=== PATIENT | male | born 1960 | race Caucasian/White ===

== ENCOUNTER 2018-06-11 18:21 | Emergency (ER) | payer OTHER ==
[~2018-06-11] VITALS: Ht 175.3 cm; Wt 77.1 kg
[~2018-06-11 18:21] MED LIST: AMBIEN5 MG ORAL; ASPIRIN81 MG ORAL; ATIVAN0.5 MG ORAL; CELEXA40 MG ORAL; HUMALOG100 UNIT/3 SUBQ; LANTUS SOL100 UNIT/1 SUBQ; LIPITOR80 MG ORAL; METFORMIN HCL500 M1 ORAL; RANITIDINE HCL75 MG PO; STRIBILD TABLE1 EACH PO; TRAMADOL HCL50 MG ORAL; UNOBMED
[2018-06-11 18:56] LABS: BASOPHILS % (AUTO) 1.5 % (0.0-2.0); EOSINOPHILS % (AUTO) 0.7 % (0.0-3.0); HEMATOCRIT 43.6 % (42.0-52.0); HEMOGLOBIN 15.1 G/DL (14.2-18.0); LYMPHOCYTES % (AUTO) 29.1 % (20.0-45.0); MEAN CORPUSCULAR VOLUME 91 FL (80-99); MONOCYTES % (AUTO) 6.9 % (1.0-10.0); NEUTROPHILS % (AUTO) 61.9 % (45.0-75.0); PLATELET COUNT 303 K/UL (150-450); RED BLOOD COUNT 4.79 M/UL (4.70-6.10); RED CELL DISTRIBUTION WIDTH 10.9 % (11.6-14.8); WHITE BLOOD COUNT 11.3 K/UL (4.8-10.8)
[2018-06-11 18:58] VITALS: BP 110/76
[2018-06-11 19:06] LABS: ANION GAP 17 mmol/L (5-15); BLOOD UREA NITROGEN 18 mg/dL (7-18); CALCIUM 9.4 MG/DL (8.5-10.1); CARBON DIOXIDE 20 MMOL/L (21-32); CHLORIDE 97 MMOL/L (98-107); SODIUM 134 MMOL/L (136-145)
[2018-06-11 19:11] LABS: ALANINE AMINOTRANSFERASE 33 U/L (12-78); ALBUMIN 3.8 G/DL (3.4-5.0); ALBUMIN/GLOBULIN RATIO 0.9 (1.0-2.7); ALKALINE PHOSPHATASE 161 U/L (46-116); ASPARTATE AMINO TRANSFERASE 23 U/L (15-37); BILIRUBIN,TOTAL 0.3 MG/DL (0.2-1.0)
--- NOTE | 2018-06-11 19:13 | Diagnostic Imaging Report ---
EXAM: CT Head Without Intravenous Contrast CLINICAL HISTORY: AMS TECHNIQUE: Axial computed tomography images of the head/brain without intravenous contrast. CTDI is 70 mGy and DLP is 1364 mGy-cm. One or more of the following dose reduction techniques were used: automated exposure control, adjustment of the mA and/or kV according to patient size, use of iterative reconstruction technique. COMPARISON: No relevant prior studies available. FINDINGS: Brain: Unremarkable. No hemorrhage. No edema. Ventricles: Unremarkable. No ventriculomegaly. Bones/joints: Unremarkable. No acute fracture. Soft tissues: Unremarkable. Sinuses: Paranasal sinus mucosal thickening. Mastoid air cells: Unremarkable as visualized. IMPRESSION: 1. No acute intracranial abnormality. 2. Paranasal sinus mucosal thickening.
[2018-06-11] MEDS ORDERED: LANTUS SOL100 UNIT/1 SUBQ (21:19)
--- NOTE | 2018-06-11 22:09 | Emergency Room Report ---
History of Present Illness General Chief Complaint: Alcohol Intoxication Source: Patient, EMS Present Illness HPI 57-year-old male presents ED for evaluation. Found by EMS, altered. EtOH. Unclear whether patient fell. Accu-Chek high. History of diabetes. Patient admits to drinking. States he does not have his Lantus for his diabetes. Denies any headache. Denies any chest pain or shortness of breath. No other aggravating relieving factors. Denies any other associated symptoms Allergies: Coded Allergies: No Known Allergies (Unverified , 11/16/14) UNABLE TO ASSESS (Unverified , 08/02/15) PT ALOC Patient History Past Medical History: DM, HTN Past Surgical History: none Pertinent Family History: none Social History: Reports: alcohol use; Denies: smoking, drug use Immunizations: UTD Reviewed Nursing Documentation: PMH: Agreed; PSxH: Agreed Nursing Documentation-PMH Past Medical History: No Stated History Hx Cardiac Problems: Yes Hx Hypertension: Yes Hx Diabetes: Yes Hx Cancer: No Hx Gastrointestinal Problems: No Hx Neurological Problems: No Review of Systems All Other Systems: negative except mentioned in HPI Physical Exam Vital Signs Date Time Temp Pulse Resp B/P (MAP) Pulse Ox O2 Delivery O2 Flow Rate FiO2 06/11/18 18:18 98.4 101 19 126/83 98 Room Air Sp02 EP Interpretation: reviewed, normal General Appearance: GCS 15, non-toxic, other - intoxicated Head: normocephalic, atraumatic Eyes: bilateral eye normal inspection, bilateral eye PERRL ENT: hearing grossly normal, normal pharynx, no angioedema, normal voice Neck: full range of motion, supple/symm/no masses Respiratory: chest non-tender, lungs clear, normal breath sounds, speaking full sentences Cardiovascular #1: regular rate, rhythm, no edema Cardiovascular #2: 2+ carotid (R), 2+ carotid (L), 2+ radial (R), 2+ radial (L) , 2+ dorsalis pedis (R), 2+ dorsalis pedis (L) Gastrointestinal: normal bowel sounds, non tender, soft, non-distended, no guarding, no rebound Rectal: deferred Genitourinary: normal inspection, no CVA tenderness Musculoskeletal: back normal, gait/station normal, normal range of motion, non- tender Neurologic: other - intoxicated Psychiatric: other - intoxicated Reflexes: 3+ bicep (R), 3+ bicep (L), 3+ tricep (R), 3+ tricep (L), 3+ knee (R) , 3+ knee (L) Skin: normal color, no rash, warm/dry, well hydrated Lymphatic: no adenopathy Medical Decision Making Diagnostic Impression: Primary Impression: Acute alcoholic intoxication Qualified Codes: F10.929 - Alcohol use, unspecified with intoxication, unspecified Additional Impression: Hyperglycemia ER Course Hospital Course 57-year-old M presents to ED with altered mental status. +ETOH, accucheck high Differential diagnoses include: Psychosis, EtOH, drug abuse, DKA Clinical course patient placed on stretcher. On quality assurance monitor body. After initial history and physical ordered labs, IV fluids,CT brain. Labs reviewed- glucose > 300, no leukocytosis, hemoglobin/hematocrit stable, ETOH elevated, no signs of DKA CT brain shows no acute pathology Patient allowed to sleep. Given IV fluids. Accu-Chek improved. We will discharge with prescription for Lantus. i. I feel this is a highly complex case requiring extensive working including EKG/Rhythm strip, Xray/CT/US, Blood/urine lab work, repeat exams while in ED, and administration of strong opiates/narcotics for pain control, admission to hospital or close patient follow up. Diagnosis - alcohol intoxication, hyperglycemia Stable and discharged to home with Rx Lantus. Followup with PMD. Return to ED if symptoms recur or worsen Labs Test 06/11/18 18:20 06/11/18 18:45 Urine Opiates Screen Negative (NEGATIVE) Urine Barbiturates Screen Negative (NEGATIVE) Phencyclidine (PCP) Screen Negative (NEGATIVE) Urine Amphetamines Screen Negative (NEGATIVE) Urine Benzodiazepines Screen Negative (NEGATIVE) Urine Cocaine Screen Negative (NEGATIVE) Urine Marijuana (THC) Screen Negative (NEGATIVE) White Blood Count 11.3 K/UL (4.8-10.8) Red Blood Count 4.79 M/UL (4.70-6.10) Hemoglobin 15.1 G/DL (14.2-18.0) Hematocrit 43.6 % (42.0-52.0) Mean Corpuscular Volume 91 FL (80-99) Mean Corpuscular Hemoglobin 31.6 PG (27.0-31.0) Mean Corpuscular Hemoglobin Concent 34.7 G/DL (32.0-36.0) Red Cell Distribution Width 10.9 % (11.6-14.8) Platelet Count 303 K/UL (150-450) Mean Platelet Volume 5.9 FL (6.5-10.1) Neutrophils (%) (Auto) 61.9 % (45.0-75.0) Lymphocytes (%) (Auto) 29.1 % (20.0-45.0) Monocytes (%) (Auto) 6.9 % (1.0-10.0) Eosinophils (%) (Auto) 0.7 % (0.0-3.0) Basophils (%) (Auto) 1.5 % (0.0-2.0) Sodium Level 134 MMOL/L (136-145) Potassium Level 4.0 MMOL/L (3.5-5.1) Chloride Level 97 MMOL/L (98-107) Carbon Dioxide Level 20 MMOL/L (21-32) Anion Gap 17 mmol/L (5-15) Blood Urea Nitrogen 18 mg/dL (7-18) Creatinine 1.0 MG/DL (0.55-1.30) Estimat Glomerular Filtration Rate > 60 mL/min (>60) Glucose Level 423 MG/DL (74-106) Calcium Level 9.4 MG/DL (8.5-10.1) Total Bilirubin 0.3 MG/DL (0.2-1.0) Aspartate Amino Transf (AST/SGOT) 23 U/L (15-37) Alanine Aminotransferase (ALT/SGPT) 33 U/L (12-78) Alkaline Phosphatase 161 U/L (46-116) Total Protein 8.1 G/DL (6.4-8.2) Albumin 3.8 G/DL (3.4-5.0) Globulin 4.3 g/dL Albumin/Globulin Ratio 0.9 (1.0-2.7) Salicylates Level 2.7 ug/mL (2.8-20) Acetaminophen Level < 2 MCG/ML (10-30) Serum Alcohol 392 mg/dL CT/MRI/US Diagnostic Results CT/MRI/US Diagnostic Results : Imaging Test Ordered: CT Head Impression no acute process Last Vital Signs Date Time Temp Pulse Resp B/P (MAP) Pulse Ox O2 Delivery O2 Flow Rate FiO2 06/11/18 18:58 98.4 90 18 110/76 98 Room Air Status: improved Disposition: HOME, SELF-CARE Condition: Stable Scripts Insulin Glargine (LANTUS) 100 Unit/1 Ml Insuln.pen 40 UNITS SUBQ BID for 30 Days, EA 0 Refills Prov: Mp Gregg MD 06/11/18 Referrals: [facility]REFERR[facility] (PCP) Patient Instructions: Alcohol Intoxication Mp Gregg MD Jun 11, 2018 22:09
[2018-06-11 22:23] VITALS: BP 146/72
== END 2018-06-11 22:30 | disposition home or self-care (01) ==
LOC: EDBD 18:21 → EMR 18:54
DX: F10.129 Alcohol abuse with intoxication, unspecified (principal); E11.65 Type 2 diabetes mellitus with hyperglycemia; I10 Essential (primary) hypertension
CPT/HCPCS: 36415; 70450; 80053; 80307; 80329; 82962; 85025; 96360; 96361; 99284

== ENCOUNTER 2018-12-10 19:17 | Emergency (ER) | payer OTHER ==
[~2018-12-10] VITALS: Ht 175.3 cm; Wt 77.1 kg
[2018-12-10 19:18] VITALS: BP 126/81
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
--- NOTE | 2018-12-10 19:34 | NUR ---
ED Nurse Note: Blood collected and sent to Lab.
[2018-12-10] MEDS ORDERED: LORazepam Inj 2mg/ml 1ml IM ONE (19:45)
[2018-12-10] MEDS ORDERED: Haloperidol 5mg/ml Inj IM ONE (19:45)
--- NOTE | 2018-12-10 19:58 | NUR ---
ED Nurse Note: Meds given as ordered.
[2018-12-10 20:22] LABS: ANION GAP 15 mmol/L (5-15); BLOOD UREA NITROGEN 18 mg/dL (7-18); CALCIUM 9.2 MG/DL (8.5-10.1); CARBON DIOXIDE 20 MMOL/L (21-32); CHLORIDE 100 MMOL/L (98-107); CREATININE 0.9 MG/DL (0.55-1.30); POTASSIUM 3.9 MMOL/L (3.5-5.1); SODIUM 135 MMOL/L (136-145)
[2018-12-10 20:27] LABS: ALANINE AMINOTRANSFERASE 28 U/L (12-78); ALBUMIN 3.5 G/DL (3.4-5.0); ALBUMIN/GLOBULIN RATIO 0.8 (1.0-2.7); ALKALINE PHOSPHATASE 122 U/L (46-116); ASPARTATE AMINO TRANSFERASE 16 U/L (15-37); BILIRUBIN,TOTAL 0.4 MG/DL (0.2-1.0)
[2018-12-10 20:30] LABS: BASOPHILS % (AUTO) 1.2 % (0.0-2.0); EOSINOPHILS % (AUTO) 0.4 % (0.0-3.0); HEMATOCRIT 37.8 % (42.0-52.0); LYMPHOCYTES % (AUTO) 16.6 % (20.0-45.0); MEAN CORPUSCULAR VOLUME 85 FL (80-99); NEUTROPHILS % (AUTO) 75.8 % (45.0-75.0); PLATELET COUNT 254 K/UL (150-450); RED BLOOD COUNT 4.43 M/UL (4.70-6.10); RED CELL DISTRIBUTION WIDTH 11.1 % (11.6-14.8); WHITE BLOOD COUNT 14.3 K/UL (4.8-10.8)
--- NOTE | 2018-12-10 21:28 | Emergency Room Report ---
History of Present Illness General Chief Complaint: Alcohol Intoxication Source: Medical Record (Yue Salcedo) Present Illness HPI 58-year-old male presents to the emergency department brought by ambulance for intoxication in public and irritability. Patient reports alcohol intake prior to arrival as well as earlier today. Patient denies pain, chest pain, shortness of breath, weakness, open wounds or bleeding, nausea, vomiting, fevers or chills. HPI and ROS are very limited due to poor patient cooperation as patient does not want to be evaluated in the emergency department. Patient denies trauma or fall. He denies illicit drug use. (Yue Salcedo) Allergies: Coded Allergies: No Known Allergies (Unverified , 11/16/14) UNABLE TO ASSESS (Unverified , 08/02/15) PT ALOC Patient History Past Medical History: see triage record Past Surgical History: none Pertinent Family History: none Reviewed Nursing Documentation: PMH: Agreed; PSxH: Agreed (Yue Salcedo) Nursing Documentation-PMH Hx Cardiac Problems: Yes Hx Hypertension: Yes Hx Asthma: No Hx COPD: No Hx Diabetes: Yes Hx Cancer: No Hx Gastrointestinal Problems: No Hx Dialysis: No Hx Neurological Problems: No Hx Cerebrovascular Accident: No Hx Seizures: No (Yue Salcedo) Review of Systems All Other Systems: limited (Yue Salcedo) Physical Exam Vital Signs Date Time Temp Pulse Resp B/P (MAP) Pulse Ox O2 Delivery O2 Flow Rate FiO2 12/10/18 19:14 98.8 101 18 127/83 (98) 99 Room Air Sp02 EP Interpretation: reviewed, normal General Appearance: no apparent distress, alert, GCS 15, non-toxic Head: normocephalic, atraumatic Eyes: bilateral eye normal inspection, bilateral eye PERRL ENT: hearing grossly normal, normal voice Neck: full range of motion, no bony tend Respiratory: chest non-tender, lungs clear, normal breath sounds, speaking full sentences Cardiovascular #1: regular rate, rhythm Gastrointestinal: normal bowel sounds, non tender, soft Musculoskeletal: back normal, normal range of motion, non-tender Neurologic: alert, oriented x3, responsive, motor strength/tone normal, sensory intact, speech normal, other - staggard /unsteady gait., grossly normal Skin: normal color, no rash, warm/dry, well hydrated, other - erythema, warmth and induration to the dorsum of the right hand and medial aspect of the left elbow. no palpable fluctuance, no blisters or vessicles Lymphatic: no adenopathy (Yue Salcedo) Medical Decision Making PA Attestation Dr. Mccain is my supervising Physician whom patient management has been discussed with. (Yue Salcedo) Diagnostic Impression: Primary Impression: Alcohol abuse Additional Impression: Cellulitis Qualified Codes: L03.90 - Cellulitis, unspecified ER Course Pt. presents to the ED intoxicated with alcohol, pt. is NAD, pt. is alert, no obvious signs of trauma, able to ambulate to but without steady gait. Ddx considered but are not limited to ETOH, Trauma, Syncope, dementia, OD, head injury, cellulitis, abscess, drug abuse just to name a few Vital signs: are WNL, pt. is afebrile H&PE are most consistent with ETOH abuse and two areas with cellulitis ( right hand and medial aspect of the left elbow) ORDERS: -CBC; elevated wbc 14k -CMP: WNL -Serum ETOH: 290 -UDS: positive for benzo's - Tylenol /ASA: WNL ED INTERVENTIONS: -5mg Haldol-- pt. was agitated/ uncooperative and attempting to leave while obviously inebriated -Wound Care -Observance while he detoxifies. -Keflex PO Pt. was allowed to sleep/rest. - Signed out to Dr. Romo to continue observation until clinically sober. DISCHARGE: At this time pt. is stable for d/c to home once he is clinically sober. Will provide printed patient care instructions, and any necessary prescriptions. Care plan and follow up instructions have been discussed with the patient prior to discharge. (Yue Salcedo) ER Course Patient rested throughout the night in the morning time I was notified by nursing staff that the patient felt better and wanted to go home Patient is awake and alert Continued with his Keflex antibiotics and will have close outpatient follow-up (Yvonne Romo DO) Last Vital Signs Date Time Temp Pulse Resp B/P (MAP) Pulse Ox O2 Delivery O2 Flow Rate FiO2 12/10/18 19:18 99 18 Room Air 12/10/18 19:18 98.7 126/81 99 (Yue Salcedo) Status: improved (Yvonne Romo DO) Disposition: HOME, SELF-CARE Condition: Improved Signed Out To: Dr. Romo (Yue Salcedo) Scripts Cephalexin* (KEFLEX*) 500 Mg Capsule 500 MG ORAL EVERY 6 HOURS for 7 Days, CAP Prov: Yvonne Romo DO 12/11/18 Referrals: [facility]/,REFERRING (PCP) Yue Salcedo Dec 10, 2018 21:28 Yvonne Romo DO Dec 11, 2018 06:19
[2018-12-10] MEDS ORDERED: Cephalexin 500mg cap ORAL ONE (23:00)
--- NOTE | 2018-12-10 23:13 | NUR ---
ED Nurse Note: Antibiotics given as ordered.
[2018-12-10 23:25] VITALS: BP 123/82
--- NOTE | 2018-12-11 02:30 | NUR ---
ED Nurse Note: Pt is sleeping at this time, will continue to monitor.
[2018-12-11 03:40] VITALS: BP 122/80
--- NOTE | 2018-12-11 05:11 | NUR ---
ED Nurse Note: Called his , Teresa Mcgill, , no one medicinal plant picker the phone, will try it later.
[2018-12-11 05:55] VITALS: BP 120/80
--- NOTE | 2018-12-11 05:58 | NUR ---
ED Nurse Note: Assited pt to voide, Pt is A/O X 4, VSS.
[2018-12-11] MEDS ORDERED: CEPHALEXIN500 MG ORAL (06:16)
[2018-12-11 06:22] VITALS: BP 123/81
--- NOTE | 2018-12-11 06:22 | NUR ---
ER DISCHARGE NOTE: Patient is cleared to be discharged per Dr. Romo. Pt is aox4 on room air with stable vital signs. Pt was given dc and prescription instructions and was able to verbalize understanding. Pt's band removed. Pt is able to ambulate with steady gait and took all belongings. Bus token provided.
== END 2018-12-11 06:22 | disposition home or self-care (01) ==
LOC: EDBD 19:17 → EMR 19:53
DX: F10.129 Alcohol abuse with intoxication, unspecified (principal); L03.90 Cellulitis, unspecified; E11.9 Type 2 diabetes mellitus without complications; I10 Essential (primary) hypertension
CPT/HCPCS: 36415; 80053; 80307; 80329; 85025; 96372; 99284; J1630

== ENCOUNTER 2019-05-02 22:40 | Inpatient (IN) | payer OTHER ==
[~2019-05-02] VITALS: Ht 180.3 cm; Wt 83.5 kg
[~2019-05-02 22:40] MED LIST changes: +CEPHALEXIN500 MG ORAL
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
--- NOTE | 2019-05-02 22:52 | Emergency Room Report ---
History of Present Illness General Chief Complaint: Abnormal Labs Source: Patient Present Illness HPI Patient presents with complaints of high glucose Reports that he thinks he has ketoacidosis he has had this problem in the past and feels very similar He feels short of breath And weak patient has had increased diarrhea Increased nausea as well over the past several days denies any fevers denies any chest pain Denies any back or flank pain Allergies: Coded Allergies: MORPHINE (Unverified Allergy, Unknown, 05/02/19) PENICILLINS (Unverified Allergy, Unknown, 05/02/19) Patient History Past Medical History: see triage record Reviewed Nursing Documentation: PMH: Agreed; PSxH: Agreed Nursing Documentation-PMH Hx Cardiac Problems: Yes Hx Hypertension: Yes Hx Asthma: No Hx COPD: No Hx Diabetes: Yes Hx Cancer: No Hx Gastrointestinal Problems: No Hx Dialysis: No History Of Psychiatric Problem: Yes - HIV Hx Neurological Problems: No Hx Cerebrovascular Accident: No Hx Seizures: No Review of Systems All Other Systems: negative except mentioned in HPI Physical Exam Vital Signs Date Time Temp Pulse Resp B/P (MAP) Pulse Ox O2 Delivery O2 Flow Rate FiO2 05/02/19 22:33 98.1 124 25 160/93 (115) 97 Sp02 EP Interpretation: reviewed, normal General Appearance: moderate distress - tachypnic under distress Head: normocephalic, atraumatic Eyes: bilateral eye PERRL ENT: dry mucus membranes Neck: supple Respiratory: lungs clear, no retraction, other - tachypnic Cardiovascular #1: tachycardia Gastrointestinal: non tender, soft Musculoskeletal: normal inspection Neurologic: alert, oriented x3, motor tester III-XII nml as tested Psychiatric: anxious Skin: other - Ecchymosis around the right eye Lymphatic: normal inspection Procedures Critical Care Time Critical Care Time 70 minutes for multiple re-evaluations critical presentation with critical findings concerning for life-threatening pathology not including any procedural time Medical Decision Making Diagnostic Impression: Primary Impression: Diabetic ketoacidosis Additional Impressions: Hyperkalemia Hyponatremia Leukocytosis ER Course Given the patient's history and presentation multiple differentials and consideration including but not limited to sepsis, DKA, hyperglycemia Patient's blood work are initiated patient placed on cardiac monitoring and receiving IV hydration patient appears tachypneic 2 small respirations Accu-Chek here is over 480 patient initiated emergently on insulin drip as well Blood work returned with significant abnormalities patient continues on aggressive IV hydration Insulin drip Patient requiring ICU admission At this time maintaining appropriate respirations awake alert protecting airway Labs Test 05/02/19 22:45 05/02/19 23:06 White Blood Count 30.9 K/UL (4.8-10.8) Red Blood Count 5.52 M/UL (4.70-6.10) Hemoglobin 17.5 G/DL (14.2-18.0) Hematocrit 50.6 % (42.0-52.0) Mean Corpuscular Volume 92 FL (80-99) Mean Corpuscular Hemoglobin 31.7 PG (27.0-31.0) Mean Corpuscular Hemoglobin Concent 34.5 G/DL (32.0-36.0) Red Cell Distribution Width 12.0 % (11.6-14.8) Platelet Count 503 K/UL (150-450) Mean Platelet Volume 5.2 FL (6.5-10.1) Neutrophils (%) (Auto) % (45.0-75.0) Lymphocytes (%) (Auto) % (20.0-45.0) Monocytes (%) (Auto) % (1.0-10.0) Eosinophils (%) (Auto) % (0.0-3.0) Basophils (%) (Auto) % (0.0-2.0) Sodium Level 127 MMOL/L (136-145) Potassium Level 5.4 MMOL/L (3.5-5.1) Chloride Level 93 MMOL/L (98-107) Carbon Dioxide Level 6 MMOL/L (21-32) Anion Gap 26 mmol/L (5-15) Blood Urea Nitrogen 21 mg/dL (7-18) Creatinine 1.5 MG/DL (0.55-1.30) Estimat Glomerular Filtration Rate 48.1 mL/min (>60) Glucose Level 486 MG/DL (74-106) Calcium Level 8.1 MG/DL (8.5-10.1) Total Bilirubin 0.7 MG/DL (0.2-1.0) Aspartate Amino Transf (AST/SGOT) 31 U/L (15-37) Alanine Aminotransferase (ALT/SGPT) 38 U/L (12-78) Alkaline Phosphatase 157 U/L (46-116) Troponin I 0.000 ng/mL (0.000-0.056) Total Protein 10.3 G/DL (6.4-8.2) Albumin 4.5 G/DL (3.4-5.0) Globulin 5.8 g/dL Albumin/Globulin Ratio 0.8 (1.0-2.7) Lipase 358 U/L (73-393) Serum Alcohol < 3 mg/dL Arterial Blood pH 6.920 (7.350-7.450) Arterial Blood Partial Pressure CO2 14.4 mmHg (35.0-45.0) Arterial Blood Partial Pressure O2 145.8 mmHg (75.0-100.0) Arterial Blood Oxygen Saturation 98.2 % (95-100) Samuel Test Positive EKG Diagnostic Results Rate: tachycardiac Rhythm: other ST Segments: other - No specific ST changes Rhythm Strip Diag. Results EP Interpretation: yes Rate: 112 Rhythm: no PVC's, no ectopy, other - Sinus tach Chest X-Ray Diagnostic Results Chest X-Ray Diagnostic Results : Chest X-Ray Ordered: Yes # of Views/Limited/Complete: 1 View Indication: Chest Pain EP Interpretation: Yes Interpretation: no consolidation, no effusion, no pneumothorax Impression: No acute disease Electronically Signed by: Yvonne Romo DO Last Vital Signs Date Time Temp Pulse Resp B/P (MAP) Pulse Ox O2 Delivery O2 Flow Rate FiO2 05/02/19 22:33 98.1 124 25 160/93 (115) 97 Status: improved Disposition: ADMITTED INPATIENT Condition: Critical Yvonne Romo DO May 02, 2019 22:51
[2019-05-02] MEDS ORDERED: Insulin Human Regular 100units/ml 3ml ONE (22:55)
--- NOTE | 2019-05-02 22:58 | NUR ---
ED Nurse Note: called chris for pt's insulin drip label and spoke with sue.
--- NOTE | 2019-05-02 23:12 | NUR ---
ED Nurse Note: insulin drip started per ERMD order, per ERMD order, insulin started at 8units/hr and verified with ERMD prior to administration of insulin drip. 2 RN verified medication prior to administration.
[2019-05-02 23:13] LABS: HEMATOCRIT 50.6 % (42.0-52.0); HEMOGLOBIN 17.5 G/DL (14.2-18.0); MEAN CORPUSCULAR VOLUME 92 FL (80-99); PLATELET COUNT 503 K/UL (150-450); RED BLOOD COUNT 5.52 M/UL (4.70-6.10)
--- NOTE | 2019-05-02 23:13 | NUR ---
ED Nurse Note: pt reports nausea and headache, ERMD notified.
[2019-05-02 23:16] VITALS: BP 179/84
[2019-05-02 23:16] LABS: WHITE BLOOD COUNT 30.9 K/UL (4.8-10.8)
[2019-05-02] MEDS ORDERED: Ketorolac 30mg Inj ONE (23:19)
[2019-05-02 23:21] LABS: ALANINE AMINOTRANSFERASE 38 U/L (12-78); ALBUMIN 4.5 G/DL (3.4-5.0); ALBUMIN/GLOBULIN RATIO 0.8 (1.0-2.7); ALKALINE PHOSPHATASE 157 U/L (46-116); ANION GAP 26 mmol/L (5-15); ASPARTATE AMINO TRANSFERASE 31 U/L (15-37); BILIRUBIN,TOTAL 0.7 MG/DL (0.2-1.0); BLOOD UREA NITROGEN 21 mg/dL (7-18); CALCIUM 8.1 MG/DL (8.5-10.1); CHLORIDE 93 MMOL/L (98-107); CREATININE 1.5 MG/DL (0.55-1.30); POTASSIUM 5.4 MMOL/L (3.5-5.1); SODIUM 127 MMOL/L (136-145)
[2019-05-02 23:24] LABS: CARBON DIOXIDE 6 MMOL/L (21-32)
[2019-05-02] MEDS ORDERED: LORazepam Inj 2mg/ml 1ml IV ONE (23:30)
[2019-05-02] MEDS ORDERED: DiphenhydrAMINE 50mg/ml Inj IVP ONE (23:30)
[2019-05-02] MEDS ORDERED: Ketorolac 30mg Inj IV ONE (23:30)
[2019-05-03] VITALS (23 sets, daily range): BP systolic 97–157; BP diastolic 45–93
--- NOTE | 2019-05-03 | NUR ---
ED Nurse Note: pt reports feeling better with medication, reports decrease in pain/nausea/anxiety at this time, will cont monitor. pt advised to notify staff if needed assist, pt verbalized understanding. pt notified that urine sample is needed, pt states he cannot void at this time, ermd notified and aware.
--- NOTE | 2019-05-03 00:12 | NUR ---
ED Nurse Note: BS 362 NOTED, ERMD NOTIFIED, PER ERMD ORDER CONTINUE INSULIN AT 8 UNITS /HR.
--- NOTE | 2019-05-03 00:21 | NUR ---
ED Nurse Note: PT REFUSED VRE/CRE SWAB.
[2019-05-03] MEDS ORDERED: HUMALOG 75/255 UNIT1 SUBQ (00:29)
[2019-05-03] MEDS ORDERED: DEPAKOTE500 MG PO (00:29)
[2019-05-03] MEDS ORDERED: NEURONTIN300 MG ORAL (00:29)
[2019-05-03] MEDS ORDERED: TRAZODONE HCL100 MG ORAL (00:29)
[2019-05-03] MEDS ORDERED: MIRTAZAPINE15 MG ORAL (00:29)
[2019-05-03] MEDS ORDERED: PAXIL30 MG ORAL (00:29)
[2019-05-03] MEDS ORDERED: BIKTARVY 50-201 EACH PO (00:29)
[2019-05-03] MEDS ORDERED: LANTUS SOL100 UNIT/1 SUBQ (00:29)
--- NOTE | 2019-05-03 00:34 | NUR ---
ED Nurse Note: REPORT GIVEN TO SATINDER GILBERT.
--- NOTE | 2019-05-03 00:45 | NUR ---
TRANSFER TO FLOOR: Patient transferred to ICU PER ERMD ORDER, PT REPORT GIVEN TO SATINDER GILBERT AND ENDORSED CARE TO ICU STAFF, ALL BELONGINGS SENT W/ PT AND ENDORSED TO SATINDER GILBERT W/ COMPLETED LIST, INFORMED RECEIVING RN THAT PT REFUSED VRE/CRE SWAB DUE TO WEAKNESS AT THIS TIME. PT SINUS TACH ON CARDIC MONITOR, PT TRANSFERRED VIA GURNEY ON ACLS PROTOCOL.
--- NOTE | 2019-05-03 00:50 | NUR ---
NURSE NOTES: Patient received from ER MD. Patient is AAOX4. Patient HR is 115 ST, afebrile, 150/78, RR 30. Patient on NC at 2L Spo2 98%. Patient has L AC 18G infusing insulin gtt from ER. Safety measures are in place will continue to monitor.
[2019-05-03] MEDS ORDERED: Insulin Human Regular 100units/ml 3ml IV PRN ×5 (01:00→22:00)
[2019-05-03] MEDS ORDERED: ALPRAZolam 0.5mg tab ORAL PRN (01:00)
--- NOTE | 2019-05-03 01:00 | NUR ---
NURSE NOTES: Called Dr Fritz for admission ordered, orders received and will be carried out. Patients Glucose level is 321. Remains on ER insulin gtt
--- NOTE | 2019-05-03 02:00 | NUR ---
NURSE NOTES: Will continue using Insulin gtt from ER's orders. Unable to scan Insulin gtt label that was ordered for ICU. Patient glucase is 250, insulin gtt accordingly. Will continue to monitor.
--- NOTE | 2019-05-03 02:10 | NUR ---
NURSE NOTES: Report received from SATINDER Chun. Observed pt lying in the bed. A/O x4. ST on medical doctor. BP 157/79 noted. On room, tachypneic 24, saturating at 99. pt coughing occasionally, non-productive. IV on R AC, intact running 8ml/hr noted. IV on R FA 22G, NS running at 200cc/hr noted, asymptomatic. Med label unable to scan. Talked with pipeline and unable to fix it. Will let the pharmacy know in the morning. Bed in the lowest position. Side rails up x2. Will continue to monitor.
--- NOTE | 2019-05-03 03:03 | NUR ---
NURSE NOTES: BS 218 noted. Insulin drip rate changed to 4U/hr. additional 5U IVP given. Pt sleeping in the bed, calm and comfortable. No acute change noted at this time. Will continue to monitor.
[2019-05-03] MEDS: Insulin Rate Change 1 Each MISC PRN ×8 (03:09→23:06)
--- NOTE | 2019-05-03 04:00 | NUR ---
NURSE NOTES: BS is 163. Insulin drip rate changed to 2.5U/hr. No acute change noted at this time. Pt sleeping in the bed. Will continue to monitor.
--- NOTE | 2019-05-03 04:59 | NUR ---
NURSE NOTES: BS is 145. Insulin drip rate changed to 2U/hr. Noted pt voided. Blood drawn for am lab. Will continue to monitor.
[2019-05-03 05:49] LABS: ANION GAP 17 mmol/L (5-15); BLOOD UREA NITROGEN 21 mg/dL (7-18); CALCIUM 7.4 MG/DL (8.5-10.1); CHLORIDE 104 MMOL/L (98-107); CREATININE 1.3 MG/DL (0.55-1.30); POTASSIUM 5.4 MMOL/L (3.5-5.1); SODIUM 131 MMOL/L (136-145)
--- NOTE | 2019-05-03 05:51 | NUR ---
NURSE NOTES: BS 151 noted. No change on rate per protocol noted. Pt is mildly agitated and PRN med given. Will continue to monitor.
[2019-05-03 05:57] LABS: CARBON DIOXIDE 7 MMOL/L (21-32)
--- NOTE | 2019-05-03 07:14 | NUR ---
NURSE NOTES: BS 176 noted. Insulin drip changed to 2.5U/hr. Observed pt sleeping in the bed. No acute distress noted at this time.
--- NOTE | 2019-05-03 08:30 | NUR ---
NURSE NOTES: Received pt from SATINDER Montes. Pt is A/Ox4; able make needs known. Reports he hasn't slept in 3 days. No other signs of distress. Insulin gtt running @2.5ml/hr on algorithm 2. IV site on RAC 18G and RFA 20G running insulin drip and NS@200ml/hr. NSR on groundwater monitoring technician. Right eye contusion noted. Patient is on RA, breathing even and unlabored. VD done at bedside now. Bed locked, alarmed and in lowest position.
--- NOTE | 2019-05-03 09:30 | NUR ---
NURSE NOTES: Patient refused breakfast tray. Reports feeling too sleepy to eat.
--- NOTE | 2019-05-03 10:34 | NUR ---
*-* NO INSURANCE INFOPRMATION IN THE BAR [place] TO SEND CLINICALS OR REVIEWS *-*
[2019-05-03 11:34] LABS: APPEARANCE,URINE CLEAR; BILIRUBIN, URINE NEGATIVE (NEGATIVE); COLOR,URINE PALE YELLOW; GLUCOSE, URINE (UA) 4+ (NEGATIVE); KETONES,URINE 4+ (NEGATIVE); LEUKOCYTE ESTERASE ,URINE NEGATIVE (NEGATIVE); NITRITE,URINE NEGATIVE (NEGATIVE); PH,URINE 5 (4.5-8.0); PROTEIN,URINE 2+ (NEGATIVE); UROBILINOGEN,URINE NORMAL MG/DL (0.0-1.0)
--- NOTE | 2019-05-03 11:44 | NUR ---
NURSE NOTES: Repositioned independently. No signs of distress. Patient is asleep in bed. IVF and insulin running well.
--- NOTE | 2019-05-03 12:44 | Infectious Diseases Prog Note ---
Assessment/Plan Assessment/Plan Full consult to follow: possible sepsis leukocytosis ? source DKA dehydration vancomycin, levofloxacin, flagyl f/u on cultures, labs and chest x-ray ivf thank you Subjective Allergies: Coded Allergies: MORPHINE (Unverified Allergy, Unknown, 05/02/19) PENICILLINS (Unverified Allergy, Unknown, 05/02/19) Objective Vital Signs Last 24 Hour Vital Signs Date Time Temp Pulse Resp B/P (MAP) Pulse Ox O2 Delivery O2 Flow Rate FiO2 05/03/19 12:00 Room Air 05/03/19 12:00 98.3 85 28 104/52 (69) 98 05/03/19 12:00 80 05/03/19 11:00 84 27 109/56 (73) 98 05/03/19 10:00 82 26 114/54 (74) 100 05/03/19 09:00 85 26 122/93 (103) 98 05/03/19 08:00 Room Air 05/03/19 08:00 88 26 118/55 (76) 99 05/03/19 08:00 92 05/03/19 07:00 86 24 118/59 (78) 100 05/03/19 06:00 94 24 153/83 (106) 100 05/03/19 05:00 122 24 138/83 (101) 100 05/03/19 04:00 Room Air 05/03/19 04:00 98.0 131 24 138/75 (96) 100 05/03/19 04:00 106 05/03/19 03:00 122 24 144/64 (90) 100 05/03/19 02:00 110 25 157/79 (105) 100 05/03/19 01:00 119 05/03/19 00:53 Nasal Cannula 2.0 05/03/19 00:45 97.8 118 30 119/78 100 Room Air 05/03/19 00:16 97.2 119 28 148/76 100 Nasal Cannula 2.0 05/02/19 23:56 98.1 05/02/19 23:38 115 28 Room Air 05/02/19 23:16 98.1 115 23 179/84 97 Room Air 05/02/19 22:33 98.1 124 25 160/93 (115) 97 Height (Feet): 5 Height (Inches): 11.00 Weight (Pounds): 187 Laboratory Tests Test 05/02/19 22:45 05/02/19 23:06 05/03/19 05:00 05/03/19 09:00 White Blood Count 30.9 K/UL (4.8-10.8) *H Red Blood Count 5.52 M/UL (4.70-6.10) Hemoglobin 17.5 G/DL (14.2-18.0) Hematocrit 50.6 % (42.0-52.0) Mean Corpuscular Volume 92 FL (80-99) Mean Corpuscular Hemoglobin 31.7 PG (27.0-31.0) H Mean Corpuscular Hemoglobin Concent 34.5 G/DL (32.0-36.0) Red Cell Distribution Width 12.0 % (11.6-14.8) Platelet Count 503 K/UL (150-450) H Mean Platelet Volume 5.2 FL (6.5-10.1) L Neutrophils (%) (Auto) % (45.0-75.0) Lymphocytes (%) (Auto) % (20.0-45.0) Monocytes (%) (Auto) % (1.0-10.0) Eosinophils (%) (Auto) % (0.0-3.0) Basophils (%) (Auto) % (0.0-2.0) Differential Total Cells Counted 100 Neutrophils % (Manual) 88 % (45-75) H Lymphocytes % (Manual) 5 % (20-45) L Monocytes % (Manual) 5 % (1-10) Eosinophils % (Manual) 1 % (0-3) Basophils % (Manual) 1 % (0-2) Band Neutrophils 0 % (0-8) Platelet Estimate Adequate Platelet Morphology Normal Sodium Level 127 MMOL/L (136-145) L 131 MMOL/L (136-145) L Potassium Level 5.4 MMOL/L (3.5-5.1) H 5.4 MMOL/L (3.5-5.1) H Chloride Level 93 MMOL/L (98-107) L 104 MMOL/L (98-107) Carbon Dioxide Level 6 MMOL/L (21-32) *L 7 MMOL/L (21-32) *L Anion Gap 26 mmol/L (5-15) H 17 mmol/L (5-15) H Blood Urea Nitrogen 21 mg/dL (7-18) H 21 mg/dL (7-18) H Creatinine 1.5 MG/DL (0.55-1.30) H 1.3 MG/DL (0.55-1.30) Estimat Glomerular Filtration Rate 48.1 mL/min (>60) 56.7 mL/min (>60) Glucose Level 486 MG/DL (74-106) H 147 MG/DL (74-106) #H Calcium Level 8.1 MG/DL (8.5-10.1) L 7.4 MG/DL (8.5-10.1) L Total Bilirubin 0.7 MG/DL (0.2-1.0) Aspartate Amino Transf (AST/SGOT) 31 U/L (15-37) Alanine Aminotransferase (ALT/SGPT) 38 U/L (12-78) Alkaline Phosphatase 157 U/L (46-116) H Troponin I 0.000 ng/mL (0.000-0.056) Total Protein 10.3 G/DL (6.4-8.2) H Albumin 4.5 G/DL (3.4-5.0) Globulin 5.8 g/dL Albumin/Globulin Ratio 0.8 (1.0-2.7) L Lipase 358 U/L (73-393) Serum Alcohol < 3 mg/dL Arterial Blood pH 6.920 (7.350-7.450) Arterial Blood Partial Pressure CO2 14.4 mmHg (35.0-45.0) *L Arterial Blood Partial Pressure O2 145.8 mmHg (75.0-100.0) H Arterial Blood HCO3 Pending Arterial Blood Oxygen Saturation 98.2 % (95-100) Arterial Blood Base Excess Pending Samuel Test Positive Urine Color Pale yellow Urine Appearance Clear Urine pH 5 (4.5-8.0) Urine Specific [place] 1.010 (1.005-1.035) Urine Protein 2+ (NEGATIVE) H Urine Glucose (UA) 4+ (NEGATIVE) H Urine Ketones 4+ (NEGATIVE) H Urine Blood 5+ (NEGATIVE) H Urine Nitrite Negative (NEGATIVE) Urine Bilirubin Negative (NEGATIVE) Urine Urobilinogen Normal MG/DL (0.0-1.0) Urine Leukocyte Esterase Negative (NEGATIVE) Urine RBC 2-4 /HPF (0 - 0) H Urine WBC 0-2 /HPF (0 - 0) Urine Squamous Epithelial Cells Occasional /LPF Urine Bacteria Occasional /HPF (NONE) Urine Opiates Screen Negative (NEGATIVE) Urine Barbiturates Screen Negative (NEGATIVE) Phencyclidine (PCP) Screen Negative (NEGATIVE) Urine Amphetamines Screen Negative (NEGATIVE) Urine Benzodiazepines Screen Negative (NEGATIVE) Urine Cocaine Screen Negative (NEGATIVE) Urine Marijuana (THC) Screen Negative (NEGATIVE) Current Medications Medications (Trade) Dose Ordered Sig/Ugo Route PRN Reason Start Time Stop Time Status Last Admin Dose Admin Alprazolam (Xanax) 0.5 mg THREE TIMES A DAY PRN ORAL For Anxiety 05/03/19 01:00 05/10/19 00:59 05/03/19 05:15 Dextrose (Dextrose 50%) 25 ml Q30M PRN IV HYPOGLYCEMIA 05/03/19 01:00 06/02/19 00:59 Dextrose (Dextrose 50%) 50 ml Q30M PRN IV HYPOGLYCEMIA 05/03/19 01:00 06/02/19 00:59 Insulin Human Regular (NovoLIN R) 5 units PRN PRN IV BS 200-299 05/03/19 01:45 06/02/19 01:44 05/03/19 03:09 Insulin Human Regular (NovoLIN R) 10 units PRN PRN IV BS=>300 05/03/19 01:45 06/02/19 01:44 Insulin Human Regular 100 units/ Sodium Chloride 100 ml @ 0 mls/hr Q24H IV 05/03/19 10:00 06/02/19 09:59 05/03/19 11:05 Miscellaneous Medication (Insulin Rate Change) 1 ea PRN PRN MISC Hyperglycemia 05/03/19 01:00 06/02/19 00:59 05/03/19 11:59 Sodium Chloride 1,000 ml @ 200 mls/hr Q5H IV 05/03/19 01:00 06/02/19 00:59 05/03/19 11:05 Ghazal Wilkes MD May 03, 2019 12:44
--- NOTE | 2019-05-03 12:58 | NUR ---
CASE MANAGEMENT: INITIAL REVIEW 58YR OLD MALE BIBA FROM HOME CC: ABNORMAL LABS SI: DIABETIC KETOACIDOSIS; DEHYDRATION 98.0 124 25 160/93 97% ON RA BG 486 WBC 30.9 NA+ 127 K+ 5.4 CA+ 8.1 CO2 6 BUN 21 CREAT 1.5 IS: IVF NS BOLUS X3 IV NOVOLOG X1 IV ZOFRAN X1 IV TORADOL X1 IV BENADRYL X1 IV ATIVAN X1 :ICU STATUS CASE MANAGEMENT: REVIEW 05/03/19 SI: DIABETIC KETOACIDOSIS. DEHYDRATION 98.0 88 26 118/55 99% ON RA NA+ 131 K+ 5.4 CA+ 7.4 CO2 7 BUN 21 BG 147 IS: IVF NS @200ML/HR IV VANCOMYCIN Q12HR IV METRONIDAZOLE @100ML/HR IV LEVOFLOXACIN X1 NOVOLOG GTT Q24HR :ICU STATUS PLAN: BL CX PENDING DCP: DISCHARGE HOME WHEN MEDICALLY STABLE
--- NOTE | 2019-05-03 12:58 | Diagnostic Imaging Report ---
Indication: Chest pain Comparison: 08/02/2015 A single view chest radiograph was obtained. Findings: Cardiomediastinal appearance is within normal limits for age. The lungs are clear. Pulmonary vascularity is appropriate. The diaphragmatic contour is smooth and costophrenic angles are sharp. No pleural effusions are identified. The bones are unremarkable. Impression: No acute findings
[2019-05-03] MEDS ORDERED: Vancomycin 1.5gm/NS Premix IVPB ONE (13:30)
[2019-05-03 13:34] LABS: ALANINE AMINOTRANSFERASE 30 U/L (12-78); ALBUMIN 3.4 G/DL (3.4-5.0); ALBUMIN/GLOBULIN RATIO 0.8 (1.0-2.7); ALKALINE PHOSPHATASE 99 U/L (46-116); ANION GAP 14 mmol/L (5-15); ASPARTATE AMINO TRANSFERASE 37 U/L (15-37); BILIRUBIN,TOTAL 0.7 MG/DL (0.2-1.0); BLOOD UREA NITROGEN 16 mg/dL (7-18); CALCIUM 7.4 MG/DL (8.5-10.1); CARBON DIOXIDE 14 MMOL/L (21-32); CHLORIDE 104 MMOL/L (98-107); CREATININE 1.1 MG/DL (0.55-1.30); POTASSIUM 3.7 MMOL/L (3.5-5.1); SODIUM 132 MMOL/L (136-145)
--- NOTE | 2019-05-03 13:57 | NUR ---
NURSE NOTES: Patient asleep, IV ABX infusing well. No signs of distress.
--- NOTE | 2019-05-03 14:31 | NUR ---
*-* INSURANCE *-* ALL CLINICALS HAVE BEEN FAXED TO: [employer] No ref# or YASMANI copeland #[phone] fax#[phone]
--- NOTE | 2019-05-03 15:00 | NUR ---
NURSE NOTES: On going insulin drip on Algorithm 4 running at 5.5ml/hr. Pt reports polyuria and polydipsia.
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
--- NOTE | 2019-05-03 15:35 | NUR ---
NURSE NOTES: train control electronic technician attempted peripheral blood draw for blood culture x2 and lactic acid but unsuccessful x2, patient refused another blood draw. Will try again later.
--- NOTE | 2019-05-03 16:55 | NUR ---
NURSE NOTES: Blood drawn for lactic acid and culture blood x2
--- NOTE | 2019-05-03 17:56 | NUR ---
HAND-OFF: Report given to SATINDER Dinero.
--- NOTE | 2019-05-03 17:57 | NUR ---
NURSE NOTES: Received report from Jefry King RN. Patient alert and oriented x 4, able make needs known. On room air, respirations even and unlabored. Right hand 20g IV site infusing NS @ 200 cc/hr. Right AC 18g IV site infusing insulin gtt @ 4 ml/hr on algorithm 4. NSR on potline monitor. Right eye contusion noted, skin intact otherwise. Bed locked in lowest position with side rails up x 3. All needs attended to. Call light within reach. Will continue to monitor.
--- NOTE | 2019-05-03 19:00 | NUR ---
HAND-OFF: Report given to Masoud Grayson RN. Awaiting pharmacy verification for new orders by Dr. Abrams. Endorsed to give Levemir when available.
--- NOTE | 2019-05-03 19:00 | History and Physical Report ---
DATE OF ADMISSION: 05/03/2019 HISTORY OF PRESENT ILLNESS: This is a 58-year-old male, who was admitted to hospital with DKA. The patient reports a longstanding history of diabetes mellitus. He presented with hyperglycemia. He has had ketoacidosis in the past as well. He reported diarrhea and generalized weakness. He also reported nausea and emesis. The patient is known to have significant high anion gap, metabolic acidosis, acidemia, and hyperglycemia consistent with diabetic ketoacidosis. He was started on insulin drip and he was placed in ICU. He also received significant fluid resuscitation. PAST MEDICAL HISTORY: Notable for hypertension, diabetes mellitus, HIV positivity. HOME MEDICATIONS: Reviewed and reconciled in the chart. ALLERGIES: Morphine and penicillin. PAST SURGICAL HISTORY: None reported. REVIEW OF SYSTEMS: Denies any headaches, hematemesis, melena, or hematochezia. PHYSICAL EXAMINATION: GENERAL: Reveals a 58-year-old male. HEENT: Unremarkable. LUNGS: Clear breath sounds bilaterally. HEART: Normal heart sounds. ABDOMEN: Soft. EXTREMITIES: There is no edema. NEUROLOGIC: Nonfocal. SKIN: He has ecchymosis over the right eye. VITAL SIGNS: Blood pressure is 140/90, heart rate 110, respirations 20, he is afebrile. LABORATORY AND DIAGNOSTIC DATA: Lab testing this morning shows white count 30,000, hemoglobin of 17, platelet count is 500,000. Toxicology is negative. Urinalysis shows evidence of glucosuria. ABG shows pH of 6.9, pCO2 of 14, pO2 145. Chemistry this morning shows glucose of 147, anion gap is 17, BUN 21, bicarb 7, potassium 5.4, sodium 131. IMPRESSION: 1. Diabetic ketoacidosis. 2. Marked leukocytosis. 3. Hyponatremia. 4. Hyperkalemia. DISCUSSION: Agree with admission and care. We will follow carefully. We will consult Nephrology and Endocrinology. We will repeat labs in a.m. After today, we will follow carefully and provide fluid resuscitation as well. Rudy Fritz M.D. DR: LYNDON JOB#: [id number] CC:
--- NOTE | 2019-05-03 19:10 | NUR ---
NURSE NOTES: Report received from SATINDER Dyer. Observed pt sleeping in the bed. SR on campus monitor. On room air with no signs of SOB. IV on R AC 18G, asymptomatic, running NS at 100cc/hr. R FA 22G, asymptomatic, SL. Bed in the lowest position. Side rails up x2. Call light within reach. Will continue to monitor.
--- NOTE | 2019-05-03 20:30 | NUR ---
NURSE NOTES: BS noted to be 124. VS WNL. SR on cardiac cath lab technologist. Pt sleeping in the bed, calm and comfortable. Will continue to monitor.
--- NOTE | 2019-05-03 20:45 | Consultation ---
DATE OF CONSULTATION: 05/03/2019 ENDOCRINOLOGY CONSULTATION CONSULTING PHYSICIAN: Tj Abrams M.D. REFERRING PHYSICIAN: Rudy Fritz M.D. REASON FOR CONSULTATION: DKA. HISTORY OF PRESENT ILLNESS: The patient is a 58-year-old male with longstanding history of insulin-dependent diabetes, noncompliant with his insulin injection, presented to the hospital with severe hyperglycemia and DKA, admitted to the ICU for further treatment. The patient was started on insulin drip, currently he is on 7 units/hour. His most recent anion gap showed reduction of the gap to 14. PAST MEDICAL HISTORY: 1. Diabetes. 2. Hypertension. 3. HIV. 4. Coronary artery disease. PAST SURGICAL HISTORY: None. ALLERGIES: Morphine and penicillin. FAMILY HISTORY: Hypertension and diabetes. REVIEW OF SYSTEMS: A 12-point review of systems was performed. Pertinent positives and negatives are mentioned present illness. LABORATORY VALUES: Sodium 132, potassium 3.7, chloride 104, bicarb 14, anion gap 14, BUN 16, creatinine 1.1, glucose of 98. PHYSICAL EXAMINATION: VITAL SIGNS: Blood pressure is 128/67, pulse 103, temperature 98.9, respiratory rate of 18. HEENT: Pupils are reactive to light. Sclerae anicteric. NECK: No jugular venous distention. No thyromegaly. LUNGS: Clear. HEART: Regular rate and rhythm. ABDOMEN: Positive bowel sounds. EXTREMITIES: No clubbing, cyanosis, or edema. DIAGNOSES: 1. DKA, resolved. 2. Insulin-dependent diabetes out of control. 3. KEVIN. PLAN: 1. Discontinue insulin drip once AG is closed. 2. plan to start Levemir 36 units daily 3. plan to start NovoLog 12 units before each meal 4. plan to start NovoLog sliding scale high dose before meals and at bedtime. 5. Normal saline at 100 mL/h. 6. Further adjustment according to blood glucose values. Thank you, Dr. Fritz, for the courtesy of this consultation. Tj Abrams M.D. DR: SATINDER/letty JOB#: [id number] CC: MARIJA
[2019-05-03] MEDS ORDERED: NovoLOG Insulin Flexpen SUBQ SCH (21:00)
[2019-05-03] MEDS ORDERED: Levemir Flexpen SUBQ SCH (21:00)
--- NOTE | 2019-05-03 21:00 | NUR ---
NURSE NOTES: No acute distress noted at this time. Pt is calm. Spoke with regarding pt condition and new order received. Will follow the plan of the care.
--- NOTE | 2019-05-03 22:00 | NUR ---
NURSE NOTES: Pt in no distress noted. VS WNL. BS noted to be 214, insulin drip algorithm 2 initiated at 4U/hr. Will continue to monitor.
[2019-05-03] MEDS: Insulin Human Regular 100units/ml 3ml IV PRN (22:10)
--- NOTE | 2019-05-03 23:00 | NUR ---
NURSE NOTES: Pt in no distress, lying in the bed, no complaints of pain at this time. BS 194 noted and insulin gtt rate changed to 3U. will continue to monitor.
[2019-05-04] VITALS (18 sets, daily range): BP systolic 90–139; BP diastolic 48–81
--- NOTE | 2019-05-04 | NUR ---
NURSE NOTES: BS noted to be 170. insulin drip rate changed to 2.5U/hr. SR on ekg monitor tech. VS WNL. Will continue to monitor.
[2019-05-04] MEDS: Insulin Rate Change 1 Each MISC PRN ×8 (00:07→12:00)
--- NOTE | 2019-05-04 01:00 | NUR ---
NURSE NOTES: BS noted 157 , insulin gtt rate changed to 2U/hr. Pt sleeping in the bed. No acute change noted.
--- NOTE | 2019-05-04 02:00 | NUR ---
NURSE NOTES: BS 141 noted. Changed to algorithm 3 per protocol and rate is 4U/hr. Will continue to monitor.
[2019-05-04] MEDS: Vancomycin 1.25gm/NS Premix IVPB SCH ×2 (02:23→15:56)
--- NOTE | 2019-05-04 03:00 | NUR ---
NURSE NOTES: BS noted to be 177. the rate changed to 5u/hr.
--- NOTE | 2019-05-04 03:30 | NUR ---
NURSE NOTES: pt refused to draw blood for am lab. Explained benefits and risks, still refused. Will try in the morning.
--- NOTE | 2019-05-04 04:00 | NUR ---
NURSE NOTES: Pt sleeping in the bed. BS 187, rate is 5.8units/hr. SR on forensic psychiatrist. VS WNL. Pt complains how tired he is to be poked every hour. Explained importance of monitoring blood sugar while on insulin drip and pt verbalize understanding. Will encourage to have blood drawn for am lab. Will continue to monitor.
--- NOTE | 2019-05-04 05:23 | NUR ---
NURSE NOTES: BS noted to be 180. No change on rate, 5.8units/hr. pt sleeping in the bed. Will continue to monitor.
--- NOTE | 2019-05-04 06:00 | NUR ---
NURSE NOTES: Pt sleeping in the bed, calm and comfortable. BS is 90 noted. rate changed to 1unit/hr.
[2019-05-04] MEDS ORDERED: NovoLOG Insulin Flexpen SUBQ SCH ×3 (06:30→16:50)
--- NOTE | 2019-05-04 06:57 | NUR ---
NURSE NOTES: BS is 89 noted. per protocol, gtt stopped and will check BS within 30 mins. will continue to monitor.
--- NOTE | 2019-05-04 07:30 | NUR ---
NURSE NOTES: Bs noted to be 127 and will follow the protocol. endorsed to morning nurse.
--- NOTE | 2019-05-04 07:37 | NUR ---
HAND-OFF: Report given to SATINDER Mendes. No distress noted at this time.
--- NOTE | 2019-05-04 07:38 | NUR ---
NURSE NOTES: Received patient in bed. In no apparent distress. On continuous insulin drip. No signs and hypoglycemia. Call light within reach.
--- NOTE | 2019-05-04 07:47 | Pulmonology Progress Note ---
Assessment/Plan Assessment/Plan IMPRESSION: 1. Diabetic ketoacidosis. 2. Marked leukocytosis. 3. Hyponatremia. 4. Hyperkalemia. DISCUSSION: I will follow carefully. Seen by Nephrology and Endocrinology. I will repeat labs in a.m. IV insulin Abx per id Rudy Fritz M.D. Subjective Interval Events: HCO3 14; still on IV insulin Constitutional: Reports: no symptoms HEENT: Repors: no symptoms Respiratory: Reports: no symptoms Cardiovascular: Reports: no symptoms Gastrointestinal/Abdominal: Reports: no symptoms Allergies: Coded Allergies: MORPHINE (Unverified Allergy, Unknown, 05/02/19) PENICILLINS (Unverified Allergy, Unknown, 05/02/19) Objective Last 24 Hour Vital Signs Date Time Temp Pulse Resp B/P (MAP) Pulse Ox O2 Delivery O2 Flow Rate FiO2 05/04/19 07:00 67 24 97/58 (71) 99 05/04/19 06:00 61 24 93/51 (65) 99 05/04/19 05:00 72 24 115/61 (79) 98 05/04/19 04:00 97 05/04/19 04:00 98.3 71 20 98/63 (75) 99 05/04/19 04:00 Room Air 05/04/19 03:00 99 22 90/52 (65) 100 05/04/19 02:00 72 22 99/54 (69) 100 05/04/19 01:00 75 22 99/64 (76) 100 05/04/19 00:00 Room Air 05/04/19 00:00 98.2 75 20 101/48 (65) 100 05/04/19 00:00 70 05/03/19 23:00 61 22 98/45 (62) 100 05/03/19 22:00 76 22 97/46 (63) 100 05/03/19 21:00 75 24 104/52 (69) 100 05/03/19 20:00 Room Air 05/03/19 20:00 98.3 71 22 129/65 (86) 100 05/03/19 19:00 81 24 108/66 (80) 100 05/03/19 18:00 76 23 113/65 (81) 100 05/03/19 17:00 103 25 128/67 (87) 98 05/03/19 16:00 83 05/03/19 16:00 Room Air 05/03/19 16:00 98.9 84 24 124/84 (97) 100 05/03/19 15:00 76 24 107/70 (82) 100 05/03/19 14:00 84 24 116/50 (72) 100 05/03/19 13:00 80 21 127/52 (77) 99 05/03/19 12:00 Room Air 05/03/19 12:00 98.3 85 28 104/52 (69) 98 05/03/19 12:00 80 05/03/19 11:00 84 27 109/56 (73) 98 05/03/19 10:00 82 26 114/54 (74) 100 05/03/19 09:00 85 26 122/93 (103) 98 05/03/19 08:00 Room Air 05/03/19 08:00 88 26 118/55 (76) 99 05/03/19 08:00 92 Intake and Output 05/03/19 05/04/19 19:00 07:00 Intake Total 3014.334 ml 1365.1 ml Output Total 2200 ml 2300 ml Balance 814.334 ml -934.9 ml Intake Oral 600 ml 240 ml IV Total 2414.334 ml 1125.1 ml Output Urine Total 2200 ml 2300 ml General Appearance: no acute distress HEENT: normocephalic Respiratory/Chest: chest wall non-tender Cardiovascular: normal peripheral pulses, normal rate Abdomen: normal bowel sounds Laboratory Tests 05/03/19 09:00: Urine Color Pale yellow, Urine Appearance Clear, Urine pH 5, Urine Specific [place] 1.010, Urine Protein 2+H, Urine Glucose (UA) 4+H, Urine Ketones 4+H, Urine Blood 5+H, Urine Nitrite Negative, Urine Bilirubin Negative, Urine Urobilinogen Normal, Urine Leukocyte Esterase Negative, Urine RBC 2-4H, Urine WBC 0-2, Urine Squamous Epithelial Cells Occasional, Urine Bacteria Occasional, Urine Opiates Screen Negative, Urine Barbiturates Screen Negative, Phencyclidine (PCP) Screen Negative, Urine Amphetamines Screen Negative, Urine Benzodiazepines Screen Negative, Urine Cocaine Screen Negative, Urine Marijuana (THC) Screen Negative 05/03/19 12:48: Sodium Level 132L, Potassium Level 3.7, Chloride Level 104, Carbon Dioxide Level 14L, Anion Gap 14, Blood Urea Nitrogen 16, Creatinine 1.1, Estimat Glomerular Filtration Rate > 60, Glucose Level 98, Calcium Level 7.4L, Total Bilirubin 0.7, Aspartate Amino Transf (AST/SGOT) 37, Alanine Aminotransferase ( ALT/SGPT) 30, Alkaline Phosphatase 99, Total Protein 7.5, Albumin 3.4, Globulin 4.1, Albumin/Globulin Ratio 0.8L 05/03/19 16:35: Lactic Acid Level 1.20 05/03/19 20:12: Arterial Blood pH 7.346L, Arterial Blood Partial Pressure CO2 24.7*L, Arterial Blood Partial Pressure O2 80.4, Arterial Blood HCO3 13.2*L, Arterial Blood Oxygen Saturation 96.4, Arterial Blood Base Excess -10.6*L, Samuel Test Positive Current Medications Medications (Trade) Dose Ordered Sig/Ugo Route PRN Reason Start Time Stop Time Status Last Admin Dose Admin Alprazolam (Xanax) 0.5 mg THREE TIMES A DAY PRN ORAL For Anxiety 05/03/19 01:00 05/10/19 00:59 05/03/19 05:15 Dextrose (Dextrose 50%) 25 ml Q30M PRN IV HYPOGLYCEMIA 05/03/19 22:00 06/02/19 21:59 Dextrose (Dextrose 50%) 50 ml Q30M PRN IV HYPOGLYCEMIA 05/03/19 22:00 06/02/19 21:59 Insulin Human Regular (NovoLIN R) 5 units PRN PRN IV BS 200-299 05/03/19 22:00 06/02/19 21:59 05/03/19 22:10 Insulin Human Regular (NovoLIN R) 10 units PRN PRN IV BS=>300 05/03/19 22:00 06/02/19 21:59 Insulin Human Regular 100 units/ Sodium Chloride 100 ml @ 0 mls/hr Q24H IV 05/05/19 02:15 06/03/19 02:14 05/04/19 02:38 Levofloxacin 100 ml @ 100 mls/hr Q24H IVPB 05/03/19 13:30 05/10/19 13:29 05/03/19 13:35 Metronidazole 100 ml @ 100 mls/hr Q8HR IVPB 05/03/19 14:30 05/10/19 14:29 05/04/19 06:09 Miscellaneous Medication (Insulin Rate Change) 1 ea PRN PRN MISC To Patient Comfort 05/03/19 22:00 06/02/19 21:59 05/04/19 06:08 Sodium Chloride 1,000 ml @ 100 mls/hr Q10H IV 05/03/19 19:30 06/02/19 19:29 05/04/19 03:17 Vancomycin HCl (Vanco rx to dose) 1 ea DAILY PRN MISC Per rx protocol 05/03/19 12:45 06/02/19 12:44 Vancomycin/Sodium Chloride 275 ml @ 183.333 mls/hr Q12HR@0200,1400 IVPB 05/04/19 02:00 05/09/19 01:59 05/04/19 02:23 Rudy Fritz MD May 04, 2019 07:47
--- NOTE | 2019-05-04 09:26 | Nephrology Progress Note ---
Assessment/Plan Assessment/Plan: A/P 1. KEVIN. Due to severe volume depletion. Resolved 2. Metabolic acidosis secondary to diabetic ketoacidosis. Resolved 3. Hyperkalemia. Resolved 4. Diabetic ketoacidosis. Defer to Endocrinology. 5. Hyponatremia. Resolved 6. Volume depletion. Continue aggressive hydration Subjective Date patient seen: May 04, 2019 Time patient seen: 09:24 ROS Limited/Unobtainable: No Allergies: Coded Allergies: MORPHINE (Unverified Allergy, Unknown, 05/02/19) PENICILLINS (Unverified Allergy, Unknown, 05/02/19) Subjective Patient improving, no complaints Objective Last 24 Hour Vital Signs Date Time Temp Pulse Resp B/P (MAP) Pulse Ox O2 Delivery O2 Flow Rate FiO2 05/04/19 07:00 67 24 97/58 (71) 99 05/04/19 06:00 61 24 93/51 (65) 99 05/04/19 05:00 72 24 115/61 (79) 98 05/04/19 04:00 97 05/04/19 04:00 98.3 71 20 98/63 (75) 99 05/04/19 04:00 Room Air 05/04/19 03:00 99 22 90/52 (65) 100 05/04/19 02:00 72 22 99/54 (69) 100 05/04/19 01:00 75 22 99/64 (76) 100 05/04/19 00:00 Room Air 05/04/19 00:00 98.2 75 20 101/48 (65) 100 05/04/19 00:00 70 05/03/19 23:00 61 22 98/45 (62) 100 05/03/19 22:00 76 22 97/46 (63) 100 05/03/19 21:00 75 24 104/52 (69) 100 05/03/19 20:00 Room Air 05/03/19 20:00 98.3 71 22 129/65 (86) 100 05/03/19 19:00 81 24 108/66 (80) 100 05/03/19 18:00 76 23 113/65 (81) 100 05/03/19 17:00 103 25 128/67 (87) 98 05/03/19 16:00 83 05/03/19 16:00 Room Air 05/03/19 16:00 98.9 84 24 124/84 (97) 100 05/03/19 15:00 76 24 107/70 (82) 100 05/03/19 14:00 84 24 116/50 (72) 100 05/03/19 13:00 80 21 127/52 (77) 99 05/03/19 12:00 Room Air 05/03/19 12:00 98.3 85 28 104/52 (69) 98 05/03/19 12:00 80 05/03/19 11:00 84 27 109/56 (73) 98 05/03/19 10:00 82 26 114/54 (74) 100 Intake and Output 05/03/19 05/04/19 19:00 07:00 Intake Total 3014.334 ml 1365.1 ml Output Total 2200 ml 2300 ml Balance 814.334 ml -934.9 ml Intake Oral 600 ml 240 ml IV Total 2414.334 ml 1125.1 ml Output Urine Total 2200 ml 2300 ml Laboratory Tests 05/03/19 12:48: Sodium Level 132L, Potassium Level 3.7, Chloride Level 104, Carbon Dioxide Level 14L, Anion Gap 14, Blood Urea Nitrogen 16, Creatinine 1.1, Estimat Glomerular Filtration Rate > 60, Glucose Level 98, Calcium Level 7.4L, Total Bilirubin 0.7, Aspartate Amino Transf (AST/SGOT) 37, Alanine Aminotransferase ( ALT/SGPT) 30, Alkaline Phosphatase 99, Total Protein 7.5, Albumin 3.4, Globulin 4.1, Albumin/Globulin Ratio 0.8L 05/03/19 16:35: Lactic Acid Level 1.20 05/03/19 20:12: Arterial Blood pH 7.346L, Arterial Blood Partial Pressure CO2 24.7*L, Arterial Blood Partial Pressure O2 80.4, Arterial Blood HCO3 13.2*L, Arterial Blood Oxygen Saturation 96.4, Arterial Blood Base Excess -10.6*L, Samuel Test Positive 05/04/19 08:40: Sodium Level [Pending], Potassium Level [Pending], Chloride Level [Pending], Carbon Dioxide Level [Pending], Blood Urea Nitrogen [Pending], Creatinine [ Pending], Estimat Glomerular Filtration Rate [Pending], Glucose Level [Pending] , Calcium Level [Pending], White Blood Count [Pending], Red Blood Count [Pending ], Hemoglobin [Pending], Hematocrit [Pending], Mean Corpuscular Volume [Pending] , Mean Corpuscular Hemoglobin [Pending], Mean Corpuscular Hemoglobin Concent [ Pending], Red Cell Distribution Width [Pending], Platelet Count [Pending], Mean Platelet Volume [Pending], Neutrophils (%) (Auto) [Pending], Lymphocytes (%) ( Auto) [Pending], Monocytes (%) (Auto) [Pending], Eosinophils (%) (Auto) [Pending ], Basophils (%) (Auto) [Pending], Hemoglobin A1c [Pending], Phosphorus Level [ Pending], Magnesium Level [Pending] Height (Feet): 5 Height (Inches): 11.00 Weight (Pounds): 187 General Appearance: no apparent distress EENT: normal ENT inspection Neck: normal alignment, supple Cardiovascular: normal rate, regular rhythm Respiratory/Chest: lungs clear, normal breath sounds Abdomen: non tender, soft Edema: no edema noted Arm (L), no edema noted Arm (R), no edema noted Leg (L), no edema noted Leg (R), no edema noted Pedal (L), no edema noted Pedal (R), no edema noted Generalized Moreno Hua MD May 04, 2019 09:26
[2019-05-04 09:28] LABS: ANION GAP 13 mmol/L (5-15); BLOOD UREA NITROGEN 14 mg/dL (7-18); CARBON DIOXIDE 18 MMOL/L (21-32); CHLORIDE 103 MMOL/L (98-107); CREATININE 0.9 MG/DL (0.55-1.30); PHOSPHORUS 1.5 MG/DL (2.5-4.9); SODIUM 134 MMOL/L (136-145)
[2019-05-04] MEDS: Insulin Human Regular 100units/ml 3ml IV PRN ×3 (09:29→13:16)
[2019-05-04 10:02] LABS: HEMATOCRIT 36.7 % (42.0-52.0); HEMOGLOBIN 13.7 G/DL (14.2-18.0); LYMPHOCYTES % (AUTO) 11.8 % (20.0-45.0); MEAN CORPUSCULAR VOLUME 86 FL (80-99); MONOCYTES % (AUTO) 7.7 % (1.0-10.0); NEUTROPHILS % (AUTO) 78.5 % (45.0-75.0); PLATELET COUNT 254 K/UL (150-450); RED BLOOD COUNT 4.26 M/UL (4.70-6.10); RED CELL DISTRIBUTION WIDTH 11.3 % (11.6-14.8); WHITE BLOOD COUNT 8.5 K/UL (4.8-10.8)
--- NOTE | 2019-05-04 10:47 | NUR ---
NURSE NOTES: Spoke with Dr. Fritz via telephone, reported potassium level of 3.0, with orders to give [id number] PO.
--- NOTE | 2019-05-04 11:54 | Diagnostic Imaging Report ---
Indication: Dyspnea Comparison: 05/02/2019 A single view chest radiograph was obtained. Findings: Cardiomediastinal appearance is within normal limits for age. The lungs are clear. Pulmonary vascularity is appropriate. The diaphragmatic contour is smooth and costophrenic angles are sharp. No pleural effusions are identified. The bones are unremarkable. Impression: No acute findings
--- NOTE | 2019-05-04 13:45 | General Progress Note ---
Assessment/Plan Problem List: (1) HIV disease ICD Codes: B20 - Human immunodeficiency virus [HIV] disease SNOMED: 17239015 (2) DKA, type 2 ICD Codes: E13.10 - Other specified diabetes mellitus with ketoacidosis without coma SNOMED: 090611915 (3) Noncompliance with medication regimen ICD Codes: Z91.14 - Patient's other noncompliance with medication regimen SNOMED: 305006276 Assessment/Plan: DC insulin gtt start Levemir 30 units daily first dose now start Novolog 8 units ac tid + SSI Subjective Allergies: Coded Allergies: MORPHINE (Unverified Allergy, Unknown, 05/02/19) PENICILLINS (Unverified Allergy, Unknown, 05/02/19) All Systems: reviewed and negative except above Subjective DKA resolved Item Value Date Time Bedside Blood Glucose 224 mg/dl H 05/04/19 1316 Bedside Blood Glucose 191 mg/dl H 05/04/19 1000 Bedside Blood Glucose 90 mg/dl 05/04/19 0608 Bedside Blood Glucose 143 mg/dl H 05/04/19 0238 Bedside Blood Glucose 214 mg/dl H 05/03/19 2210 Bedside Blood Glucose 169 mg/dl H 05/03/19 1800 Bedside Blood Glucose 142 mg/dl H 05/03/19 1450 Bedside Blood Glucose 154 mg/dl H 05/03/19 1000 Objective Last 24 Hour Vital Signs Date Time Temp Pulse Resp B/P (MAP) Pulse Ox O2 Delivery O2 Flow Rate FiO2 05/04/19 12:00 Room Air 05/04/19 11:00 120 31 127/74 (91) 99 05/04/19 10:00 76 22 122/67 (85) 99 05/04/19 08:00 97.6 65 20 113/68 (83) 99 05/04/19 08:00 Room Air 05/04/19 07:28 77 05/04/19 07:00 67 24 97/58 (71) 99 05/04/19 06:00 61 24 93/51 (65) 99 05/04/19 05:00 72 24 115/61 (79) 98 05/04/19 04:00 97 05/04/19 04:00 98.3 71 20 98/63 (75) 99 05/04/19 04:00 Room Air 05/04/19 03:00 99 22 90/52 (65) 100 05/04/19 02:00 72 22 99/54 (69) 100 05/04/19 01:00 75 22 99/64 (76) 100 05/04/19 00:00 Room Air 05/04/19 00:00 98.2 75 20 101/48 (65) 100 05/04/19 00:00 70 05/03/19 23:00 61 22 98/45 (62) 100 05/03/19 22:00 76 22 97/46 (63) 100 05/03/19 21:00 75 24 104/52 (69) 100 05/03/19 20:00 Room Air 05/03/19 20:00 98.3 71 22 129/65 (86) 100 05/03/19 19:00 81 24 108/66 (80) 100 05/03/19 18:00 76 23 113/65 (81) 100 05/03/19 17:00 103 25 128/67 (87) 98 05/03/19 16:00 83 05/03/19 16:00 Room Air 05/03/19 16:00 98.9 84 24 124/84 (97) 100 05/03/19 15:00 76 24 107/70 (82) 100 05/03/19 14:00 84 24 116/50 (72) 100 Intake and Output 05/03/19 05/04/19 19:00 07:00 Intake Total 3014.334 ml 1365.1 ml Output Total 2200 ml 2300 ml Balance 814.334 ml -934.9 ml Intake Oral 600 ml 240 ml IV Total 2414.334 ml 1125.1 ml Output Urine Total 2200 ml 2300 ml Laboratory Tests 05/03/19 16:35: Lactic Acid Level 1.20 05/03/19 20:12: Arterial Blood pH 7.346L, Arterial Blood Partial Pressure CO2 24.7*L, Arterial Blood Partial Pressure O2 80.4, Arterial Blood HCO3 13.2*L, Arterial Blood Oxygen Saturation 96.4, Arterial Blood Base Excess -10.6*L, Samuel Test Positive 05/04/19 08:40: White Blood Count 8.5#, Red Blood Count 4.26L, Hemoglobin 13.7L, Hematocrit 36.7L, Mean Corpuscular Volume 86, Mean Corpuscular Hemoglobin 32.1H, Mean Corpuscular Hemoglobin Concent 37.3H, Red Cell Distribution Width 11.3L, Platelet Count 254, Mean Platelet Volume 4.9L, Neutrophils (%) (Auto) 78.5H, Lymphocytes (%) (Auto) 11.8L, Monocytes (%) (Auto) 7.7, Eosinophils (%) (Auto) 1.0, Basophils (%) (Auto) 1.0, Sodium Level 134L, Potassium Level 3.0L, Chloride Level 103, Carbon Dioxide Level 18L, Anion Gap 13, Blood Urea Nitrogen 14, Creatinine 0.9, Estimat Glomerular Filtration Rate > 60, Glucose Level 201#H , Hemoglobin A1c 9.7H, Calcium Level 7.0L, Phosphorus Level 1.5L, Magnesium Level 1.8 Height (Feet): 5 Height (Inches): 11.00 Weight (Pounds): 187 General Appearance: no apparent distress Neck: normal alignment Cardiovascular: normal rate Respiratory/Chest: lungs clear Abdomen: normal bowel sounds Pelvis: normal external exam Edema: 1+ Arm (L), 1+ Arm (R), 1+ Leg (L), 1+ Leg (R), 1+ Pedal (L), 1+ Pedal ( R), 1+ Generalized Objective Current Medications Medications (Trade) Dose Ordered Sig/Ugo Route PRN Reason Start Time Stop Time Status Last Admin Dose Admin Alprazolam (Xanax) 0.5 mg THREE TIMES A DAY PRN ORAL For Anxiety 05/03/19 01:00 05/10/19 00:59 05/03/19 05:15 Dextrose (Dextrose 50%) 25 ml Q30M PRN IV HYPOGLYCEMIA 05/03/19 22:00 06/02/19 21:59 Dextrose (Dextrose 50%) 50 ml Q30M PRN IV HYPOGLYCEMIA 05/03/19 22:00 06/02/19 21:59 Insulin Human Regular (NovoLIN R) 5 units PRN PRN IV BS 200-299 05/03/19 22:00 06/02/19 21:59 05/04/19 13:16 Insulin Human Regular (NovoLIN R) 10 units PRN PRN IV BS=>300 05/03/19 22:00 06/02/19 21:59 Insulin Human Regular 100 units/ Sodium Chloride 100 ml @ 0 mls/hr Q24H IV 05/04/19 12:54 06/03/19 12:53 05/04/19 13:06 Levofloxacin 100 ml @ 100 mls/hr Q24H IVPB 05/03/19 13:30 05/10/19 13:29 05/04/19 13:20 Metronidazole 100 ml @ 100 mls/hr Q8HR IVPB 05/03/19 14:30 05/10/19 14:29 05/04/19 06:09 Miscellaneous Medication (Insulin Rate Change) 1 ea PRN PRN MISC To Patient Comfort 05/03/19 22:00 06/02/19 21:59 05/04/19 12:00 Sodium Chloride 1,000 ml @ 100 mls/hr Q10H IV 05/03/19 19:30 06/02/19 19:29 05/04/19 03:17 Vancomycin HCl (Vanco rx to dose) 1 ea DAILY PRN MISC Per rx protocol 05/03/19 12:45 06/02/19 12:44 Vancomycin/Sodium Chloride 275 ml @ 183.333 mls/hr Q12HR@0200,1400 IVPB 05/04/19 02:00 05/09/19 01:59 05/04/19 02:23 Tj Abrams MD May 04, 2019 13:45
--- NOTE | 2019-05-04 13:45 | NUR ---
NURSE NOTES: Dr. Abrams discontinued insulin drip. Patient noted with no signs and symptoms of hypoglycemia. Will continue to monitor blood sugar.
[2019-05-04] MEDS ORDERED: Levemir Flexpen SUBQ SCH (15:00)
[2019-05-04] MEDS ORDERED: Tubing IV Secondary IV ONE (15:55)
--- NOTE | 2019-05-04 16:22 | NUR ---
CASE MANAGEMENT: INITIAL REVIEW 58 YR OLD MALE BIBA FROM HOME CC: ABNORMAL LABS PMH: HIV. DM. HTN. CAD SI: DKA. HYPONATREMIA. HYPERKALEMIA. 98.0 124 25 160/93 97% ON RA K+ 5.4 NA+ 131 CA+ 7.4 WBC 30.9 PLT 503 CO2 7 BG 147 ANION GAP 17 ABG: pCO2 24.7 HCO3 13.2 IS: IVF NS BOLUS X2 NOVOLOG GTT IV DEXTROSE X2 2W STEP DOWN CASE MANAGEMENT: REVIEW 05/04/19 SI: DKA. HYPONATREMIA. HYPERKALEMIA 97.6 65 20 113/68 99% ON RA NA+ 134 K+ 3.0 CO2 18 BG 201 CA+ 7.0 PHOS 1.5 IS: IV VANCOMYCIN Q12HR IV LEVOFLOXACIN Q24HR IV METRONIDAZOLE Q8HR K-DUR PO X1 2W STEP DOWN
--- NOTE | 2019-05-04 16:57 | Infectious Diseases Prog Note ---
Assessment/Plan Assessment/Plan Full consult dictated possible sepsis leukocytosis ? source DKA dehydration vancomycin, levofloxacin, flagyl f/u on cultures, labs and chest x-ray ivf improved Subjective HEENT: Denies: congestion Respiratory: Denies: shortness of breath Cardiovascular: Denies: chest pain Allergies: Coded Allergies: MORPHINE (Unverified Allergy, Unknown, 05/02/19) PENICILLINS (Unverified Allergy, Unknown, 05/02/19) Objective Vital Signs Last 24 Hour Vital Signs Date Time Temp Pulse Resp B/P (MAP) Pulse Ox O2 Delivery O2 Flow Rate FiO2 05/04/19 14:00 77 25 114/55 (74) 99 05/04/19 13:00 75 25 109/49 (69) 97 05/04/19 12:00 97.8 113 23 129/81 (97) 99 05/04/19 12:00 Room Air 05/04/19 11:29 91 05/04/19 11:00 120 31 127/74 (91) 99 05/04/19 10:00 76 22 122/67 (85) 99 05/04/19 08:00 97.6 65 20 113/68 (83) 99 05/04/19 08:00 Room Air 05/04/19 07:28 77 05/04/19 07:00 67 24 97/58 (71) 99 05/04/19 06:00 61 24 93/51 (65) 99 05/04/19 05:00 72 24 115/61 (79) 98 05/04/19 04:00 97 05/04/19 04:00 98.3 71 20 98/63 (75) 99 05/04/19 04:00 Room Air 05/04/19 03:00 99 22 90/52 (65) 100 05/04/19 02:00 72 22 99/54 (69) 100 05/04/19 01:00 75 22 99/64 (76) 100 05/04/19 00:00 Room Air 05/04/19 00:00 98.2 75 20 101/48 (65) 100 05/04/19 00:00 70 05/03/19 23:00 61 22 98/45 (62) 100 05/03/19 22:00 76 22 97/46 (63) 100 05/03/19 21:00 75 24 104/52 (69) 100 05/03/19 20:00 Room Air 05/03/19 20:00 98.3 71 22 129/65 (86) 100 05/03/19 19:00 81 24 108/66 (80) 100 05/03/19 18:00 76 23 113/65 (81) 100 05/03/19 17:00 103 25 128/67 (87) 98 Height (Feet): 5 Height (Inches): 11.00 Weight (Pounds): 187 General Appearance: no acute distress HEENT: normocephalic, atraumatic, anicteric Respiratory/Chest: lungs clear, normal breath sounds, no respiratory distress Cardiovascular: normal rate, regular rhythm, no gallop/murmur Abdomen: normal bowel sounds, soft, non tender, no organomegaly Laboratory Tests Test 05/03/19 20:12 05/04/19 08:40 Arterial Blood pH 7.346 (7.350-7.450) Arterial Blood Partial Pressure CO2 24.7 mmHg (35.0-45.0) *L Arterial Blood Partial Pressure O2 80.4 mmHg (75.0-100.0) Arterial Blood HCO3 13.2 mmol/L (22.0-26.0) *L Arterial Blood Oxygen Saturation 96.4 % (95-100) Arterial Blood Base Excess -10.6 (-2-2) *L Samuel Test Positive White Blood Count 8.5 K/UL (4.8-10.8) # Red Blood Count 4.26 M/UL (4.70-6.10) L Hemoglobin 13.7 G/DL (14.2-18.0) L Hematocrit 36.7 % (42.0-52.0) L Mean Corpuscular Volume 86 FL (80-99) Mean Corpuscular Hemoglobin 32.1 PG (27.0-31.0) H Mean Corpuscular Hemoglobin Concent 37.3 G/DL (32.0-36.0) H Red Cell Distribution Width 11.3 % (11.6-14.8) L Platelet Count 254 K/UL (150-450) Mean Platelet Volume 4.9 FL (6.5-10.1) L Neutrophils (%) (Auto) 78.5 % (45.0-75.0) H Lymphocytes (%) (Auto) 11.8 % (20.0-45.0) L Monocytes (%) (Auto) 7.7 % (1.0-10.0) Eosinophils (%) (Auto) 1.0 % (0.0-3.0) Basophils (%) (Auto) 1.0 % (0.0-2.0) Sodium Level 134 MMOL/L (136-145) L Potassium Level 3.0 MMOL/L (3.5-5.1) L Chloride Level 103 MMOL/L (98-107) Carbon Dioxide Level 18 MMOL/L (21-32) L Anion Gap 13 mmol/L (5-15) Blood Urea Nitrogen 14 mg/dL (7-18) Creatinine 0.9 MG/DL (0.55-1.30) Estimat Glomerular Filtration Rate > 60 mL/min (>60) Glucose Level 201 MG/DL (74-106) #H Hemoglobin A1c 9.7 % (4.3-6.0) H Calcium Level 7.0 MG/DL (8.5-10.1) L Phosphorus Level 1.5 MG/DL (2.5-4.9) L Magnesium Level 1.8 MG/DL (1.8-2.4) Current Medications Medications (Trade) Dose Ordered Sig/Ugo Route PRN Reason Start Time Stop Time Status Last Admin Dose Admin Alprazolam (Xanax) 0.5 mg THREE TIMES A DAY PRN ORAL For Anxiety 05/03/19 01:00 05/10/19 00:59 05/03/19 05:15 Dextrose (Dextrose 50%) 25 ml Q30M PRN IV Hypoglycemia 05/04/19 13:45 06/03/19 13:44 Dextrose (Dextrose 50%) 50 ml Q30M PRN IV Hypoglycemia 05/04/19 13:45 06/03/19 13:44 Insulin Aspart (NovoLOG) BEFORE MEALS AND HS SUBQ 05/04/19 16:30 06/03/19 16:29 Insulin Aspart (NovoLOG) 8 units NOVOTIAC SUBQ 05/04/19 16:50 06/03/19 16:49 Insulin Detemir (Levemir) 30 units DAILY SUBQ 05/04/19 15:00 06/03/19 14:59 05/04/19 15:56 Levofloxacin 100 ml @ 100 mls/hr Q24H IVPB 05/03/19 13:30 05/10/19 13:29 05/04/19 13:20 Metronidazole 100 ml @ 100 mls/hr Q8HR IVPB 05/03/19 14:30 05/10/19 14:29 05/04/19 14:32 Sodium Chloride 1,000 ml @ 100 mls/hr Q10H IV 05/03/19 19:30 06/02/19 19:29 05/04/19 03:17 Vancomycin HCl (Vanco rx to dose) 1 ea DAILY PRN MISC Per rx protocol 05/03/19 12:45 06/02/19 12:44 Vancomycin/Sodium Chloride 275 ml @ 183.333 mls/hr Q12HR@0200,1400 IVPB 05/04/19 02:00 05/09/19 01:59 05/04/19 15:56 Ghazal Wilkes MD May 04, 2019 16:57
--- NOTE | 2019-05-04 19:47 | NUR ---
HAND-OFF: Report and paper report given to Charge Nurse/Andie Duron RN.
--- NOTE | 2019-05-04 20:30 | NUR ---
NURSE NOTES: Received report from Edwin Pierre RN. Patient alert and oriented able to make needs known. Patient able to ambulate to bathroom, no pain reported no distress noted. Will continue to monitor.
[2019-05-04] MEDS: ALPRAZolam 0.5mg tab ORAL PRN (21:17)
[2019-05-04] MEDS: NovoLOG Insulin Flexpen SUBQ SCH ×2 (21:18→21:21)
--- NOTE | 2019-05-04 22:00 | NUR ---
NURSE NOTES: Noted patient's IV infiltrated, IV fluids and antibiotics stopped. Attempted to re insert another IV but patient refused. Per patient "I will think about it in the morning". Patient also refused vanco level blood draw from Lab. Per patient "let me sleep and you can do it in the morning".
--- NOTE | 2019-05-04 22:30 | Consultation ---
DATE OF CONSULTATION: 05/04/2019 INFECTIOUS DISEASE CONSULTATION CONSULTING PHYSICIAN: Ghazal Wilkes M.D. ATTENDING PHYSICIAN: Rudy Fritz M.D. REFERRING PHYSICIAN: Rudy Fritz M.D. REASON FOR CONSULTATION: Possible sepsis and leukocytosis. CHIEF COMPLAINT: The patient's chief complaint coming in to the hospital is diabetic ketoacidosis. HISTORY OF PRESENT ILLNESS: This is a 58-year-old male, who comes in to [facility] with dehydration and diabetic ketoacidosis. The patient has elevated white count. There was concern for sepsis. Infectious Disease consultation is requested. The patient was placed on vancomycin, Levaquin, and Flagyl. The patient was in the intensive care unit yesterday. Today, he is in the step-down unit. Cultures are pending. Chest x-ray is negative. UA is negative. REVIEW OF SYSTEMS: The patient came in with dehydration. No fevers. No chills.HEAD AND NECK: No head pain or neck pain. CARDIAC: No chest pain. GASTROINTESTINAL: No nausea, vomiting, or diarrhea. GENITOURINARY: No dysuria or frequency. PULMONARY: No shortness of breath. SKIN: No rash. PAST MEDICAL HISTORY: Includes the history of diabetes and diabetic ketoacidosis. The patient has history of hypertension. He has history also HIV it looks like. Past medical history includes hypertension, diabetes, and human immunodeficiency virus. MEDICATIONS: Upon reviewing the MAR, he is on the following medications. He is on IV fluids. He is on insulin. He is on vancomycin, Levaquin, and Flagyl. We discussed his outside medications. He is on divalproex. He was on Biktarvy, , insulin, mirtazapine, paroxetine, and trazodone. ALLERGIES: Include morphine and penicillin. SOCIAL HISTORY: Negative for smoking, alcohol, or drug abuse. FAMILY HISTORY: Noncontributory. PHYSICAL EXAMINATION: VITAL SIGNS: Temperature is 97.8, pulse rate as high as 113 today, respiratory rate 25, pulse rate now 77, and saturation 99%, he is on room air. Temp 97.8 and blood pressure is 114/55. GENERAL: Alert and responsive, in no distress. He is more alert today. HEAD AND NECK: Oral exam, no thrush. Eye exam, no icterus. Normocephalic. Neck is supple. HEART: Regular. No gallop or murmur. ABDOMEN: Soft. Positive bowel sounds. Nontender. LUNGS: Clear bilaterally. No rhonchi or rales. SKIN: No rash. MUSCULOSKELETAL: No effusion. Legs are without cellulitis. PERIPHERAL VASCULAR: No cyanosis or gangrene. NEUROLOGIC: Intact. LINE SITES: Without phlebitis. GENITOURINARY: No Murphy. No CVA tenderness. LABORATORY DATA: White count 8.5 and hemoglobin 13.7. White count yesterday was 30.9. Sodium 134 and creatinine 0.9. Carbon dioxide level is 18, on admission it was 7. Urinalysis was leukocyte esterase negative. Chest x-ray showed no acute findings. No acute disease. Blood cultures are pending. ASSESSMENT AND PLAN: 1. The patient has significant elevated white count, possible sepsis, and diabetic ketoacidosis. Continue vancomycin, Levaquin, and Flagyl. Check final cultures. Blood cultures are negative. Consider stopping antibiotics. Most likely the cause of leukocytosis is diabetic ketoacidosis and dehydration. Continue vancomycin, Levaquin, and Flagyl for positive sepsis pending blood culture results. Of note, UA and chest x-ray are negative. 2. HIV. Check CD4 viral load. Of note, he is on Biktarvy. I do not believe this is available at [facility], but would restart and follow up with primary HIV MD as an outpatient. Once he is discharged, ____ restart the Biktarvy. We will check CD4 and viral load to see his human immunodeficiency virus immune status. 3. Diabetes. 4. Acute diabetic ketoacidosis. 5. Hypertension. 6. Allergies to morphine and penicillin. 7. Social history is negative. 8. Family history is noncontributory. 9. MAR is noted. 10. Case was discussed with RN. 11. Continue treatment per primary consultants. Ghazal Wilkes M.D. DR: HUDSON JOB#: [id number] CC:
[2019-05-05] VITALS: BP 142/77
[2019-05-05] MEDS ORDERED: Vancomycin 1.25gm/NS Premix 275 ML IVPB SCH (02:00)
[2019-05-05 04:00] VITALS: BP 133/68
[2019-05-05] MEDS: NovoLOG Insulin Flexpen SUBQ SCH ×8 (06:30→21:41)
--- NOTE | 2019-05-05 06:31 | General Progress Note ---
Assessment/Plan Problem List: (1) HIV disease ICD Codes: B20 - Human immunodeficiency virus [HIV] disease SNOMED: 16468162 (2) DKA, type 2 ICD Codes: E13.10 - Other specified diabetes mellitus with ketoacidosis without coma SNOMED: 887602006 (3) Noncompliance with medication regimen ICD Codes: Z91.14 - Patient's other noncompliance with medication regimen SNOMED: 991064796 Assessment/Plan: continue Levemir 30 units daily - do not hold unless I am notified continue Novolog 8 units ac tid + SSI Subjective Allergies: Coded Allergies: MORPHINE (Unverified Allergy, Unknown, 05/02/19) PENICILLINS (Unverified Allergy, Unknown, 05/02/19) All Systems: reviewed and negative except above Subjective events noted glucose values are stable Item Value Date Time Bedside Blood Glucose 189 mg/dl H 05/04/19 2121 Bedside Blood Glucose 287 mg/dl H 05/04/19 1733 Bedside Blood Glucose 164 mg/dl H 05/04/19 1400 Bedside Blood Glucose 191 mg/dl H 05/04/19 1000 Bedside Blood Glucose 90 mg/dl 05/04/19 0608 Bedside Blood Glucose 143 mg/dl H 05/04/19 0238 Objective Last 24 Hour Vital Signs Date Time Temp Pulse Resp B/P (MAP) Pulse Ox O2 Delivery O2 Flow Rate FiO2 05/05/19 04:00 Room Air 05/05/19 04:00 98.4 88 24 133/68 (89) 97 05/05/19 03:50 66 05/05/19 00:00 98.1 92 24 142/77 (98) 99 05/05/19 00:00 Room Air 05/04/19 23:40 79 05/04/19 20:00 Room Air 05/04/19 20:00 98.6 94 24 139/81 (100) 97 05/04/19 19:07 91 05/04/19 19:07 86 05/04/19 17:00 93 14 130/76 (94) 99 05/04/19 16:00 Room Air 05/04/19 16:00 97.8 89 16 132/76 (94) 99 05/04/19 15:27 91 05/04/19 15:00 80 25 120/78 (92) 99 05/04/19 14:00 77 25 114/55 (74) 99 05/04/19 13:00 75 25 109/49 (69) 97 05/04/19 12:00 97.8 113 23 129/81 (97) 99 05/04/19 12:00 Room Air 05/04/19 11:29 91 05/04/19 11:00 120 31 127/74 (91) 99 05/04/19 10:00 76 22 122/67 (85) 99 05/04/19 08:00 97.6 65 20 113/68 (83) 99 05/04/19 08:00 Room Air 05/04/19 07:28 77 05/04/19 07:00 67 24 97/58 (71) 99 Intake and Output 05/04/19 05/05/19 18:59 06:59 Intake Total 1926.158 ml 220 ml Output Total 2050 ml Balance -123.842 ml 220 ml Intake Oral 820 ml 120 ml IV Total 1106.158 ml 100 ml Output Urine Total 2050 ml # Voids 1 # Bowel Movements 3 1 Laboratory Tests 05/04/19 08:40: White Blood Count 8.5#, Red Blood Count 4.26L, Hemoglobin 13.7L, Hematocrit 36.7L, Mean Corpuscular Volume 86, Mean Corpuscular Hemoglobin 32.1H, Mean Corpuscular Hemoglobin Concent 37.3H, Red Cell Distribution Width 11.3L, Platelet Count 254, Mean Platelet Volume 4.9L, Neutrophils (%) (Auto) 78.5H, Lymphocytes (%) (Auto) 11.8L, Monocytes (%) (Auto) 7.7, Eosinophils (%) (Auto) 1.0, Basophils (%) (Auto) 1.0, Sodium Level 134L, Potassium Level 3.0L, Chloride Level 103, Carbon Dioxide Level 18L, Anion Gap 13, Blood Urea Nitrogen 14, Creatinine 0.9, Estimat Glomerular Filtration Rate > 60, Glucose Level 201#H , Hemoglobin A1c 9.7H, Calcium Level 7.0L, Phosphorus Level 1.5L, Magnesium Level 1.8 Height (Feet): 5 Height (Inches): 11.00 Weight (Pounds): 185 General Appearance: no apparent distress Neck: normal alignment Cardiovascular: normal rate Respiratory/Chest: decreased breath sounds Abdomen: normal bowel sounds Objective Current Medications Medications (Trade) Dose Ordered Sig/Ugo Route PRN Reason Start Time Stop Time Status Last Admin Dose Admin Alprazolam (Xanax) 0.5 mg TIDPRN PRN ORAL For Anxiety 05/04/19 21:00 05/11/19 20:59 05/04/19 21:17 Dextrose (Dextrose 50%) 25 ml Q30M PRN IV Hypoglycemia 05/04/19 19:15 06/03/19 13:44 Dextrose (Dextrose 50%) 50 ml Q30M PRN IV Hypoglycemia 05/04/19 19:15 06/03/19 13:44 Insulin Aspart (NovoLOG) BEFORE MEALS AND HS SUBQ 05/04/19 21:00 06/03/19 16:29 05/04/19 21:21 Insulin Aspart (NovoLOG) 8 units NOVOTIAC SUBQ 05/05/19 06:30 06/03/19 16:49 05/04/19 21:18 Insulin Detemir (Levemir) 30 units DAILY SUBQ 05/05/19 09:00 06/03/19 14:59 Levofloxacin 100 ml @ 100 mls/hr Q24H IVPB 05/05/19 13:30 05/10/19 13:29 Metronidazole 100 ml @ 100 mls/hr Q8HR IVPB 05/04/19 22:00 05/10/19 14:29 05/04/19 21:17 Sodium Chloride 1,000 ml @ 100 mls/hr Q10H IV 05/04/19 19:00 06/02/19 19:29 05/04/19 19:27 Tj Abrams MD May 05, 2019 06:31
--- NOTE | 2019-05-05 07:07 | NUR ---
NURSE NOTES: Received report from SATINDER Pickering. Patient is sleeping in bed, in stable condition. No s/sx of SOB, breathing is even and unlabored. Observed no presence of pain or discomfort at this time. Patient is refusing new IV insertion at this time, patient is refusing lab draws at this time. Will follow up. Bed is in lowest position, brakes engaged. Call light is kept within easy reach. Will continue to monitor patient.
--- NOTE | 2019-05-05 07:18 | NUR ---
HAND-OFF: Report given to SATINDER Booth. Patient in bed resting stable at hand off. Updated RN about patient's refusal of IV access and labs earlier. Will continue to monitor.
[2019-05-05 08:00] VITALS: BP 143/91
[2019-05-05 08:00] LABS: BASOPHILS % (AUTO) 1.3 % (0.0-2.0); EOSINOPHILS % (AUTO) 0.5 % (0.0-3.0); HEMATOCRIT 36.3 % (42.0-52.0); HEMOGLOBIN 13.7 G/DL (14.2-18.0); LYMPHOCYTES % (AUTO) 15.8 % (20.0-45.0); MEAN CORPUSCULAR VOLUME 84 FL (80-99); MONOCYTES % (AUTO) 10.1 % (1.0-10.0); NEUTROPHILS % (AUTO) 72.3 % (45.0-75.0); PLATELET COUNT 245 K/UL (150-450); RED CELL DISTRIBUTION WIDTH 10.8 % (11.6-14.8)
[2019-05-05 08:09] LABS: ANION GAP 12 mmol/L (5-15); BLOOD UREA NITROGEN 12 mg/dL (7-18); CALCIUM 7.7 MG/DL (8.5-10.1); CARBON DIOXIDE 21 MMOL/L (21-32); CHLORIDE 105 MMOL/L (98-107); CREATININE 0.7 MG/DL (0.55-1.30); POTASSIUM 3.2 MMOL/L (3.5-5.1); SODIUM 138 MMOL/L (136-145)
--- NOTE | 2019-05-05 08:41 | Nephrology Progress Note ---
Assessment/Plan Assessment/Plan: A/P 1. KEVIN. resolved 2. Metabolic acidosis secondary to diabetic ketoacidosis. Resolved 3. Hyperkalemia. Resolved 4. Diabetic ketoacidosis. Defer to Endocrinology. 5. E- ABN- replace phos and K+ today Subjective Date patient seen: May 05, 2019 Time patient seen: 08:39 ROS Limited/Unobtainable: No Allergies: Coded Allergies: MORPHINE (Unverified Allergy, Unknown, 05/02/19) PENICILLINS (Unverified Allergy, Unknown, 05/02/19) Subjective Patient stable Objective Last 24 Hour Vital Signs Date Time Temp Pulse Resp B/P (MAP) Pulse Ox O2 Delivery O2 Flow Rate FiO2 05/05/19 04:00 Room Air 05/05/19 04:00 98.4 88 24 133/68 (89) 97 05/05/19 03:50 66 05/05/19 00:00 98.1 92 24 142/77 (98) 99 05/05/19 00:00 Room Air 05/04/19 23:40 79 05/04/19 20:00 Room Air 05/04/19 20:00 98.6 94 24 139/81 (100) 97 05/04/19 19:07 91 05/04/19 19:07 86 05/04/19 17:00 93 14 130/76 (94) 99 05/04/19 16:00 Room Air 05/04/19 16:00 97.8 89 16 132/76 (94) 99 05/04/19 15:27 91 05/04/19 15:00 80 25 120/78 (92) 99 05/04/19 14:00 77 25 114/55 (74) 99 05/04/19 13:00 75 25 109/49 (69) 97 05/04/19 12:00 97.8 113 23 129/81 (97) 99 05/04/19 12:00 Room Air 05/04/19 11:29 91 05/04/19 11:00 120 31 127/74 (91) 99 05/04/19 10:00 76 22 122/67 (85) 99 Intake and Output 05/04/19 05/05/19 19:00 07:00 Intake Total 1826.158 ml 220 ml Output Total 2050 ml 800 ml Balance -223.842 ml -580 ml Intake Oral 820 ml 120 ml IV Total 1006.158 ml 100 ml Output Urine Total 2050 ml 800 ml # Voids 1 # Bowel Movements 3 1 Laboratory Tests 05/04/19 08:40: White Blood Count 8.5#, Red Blood Count 4.26L, Hemoglobin 13.7L, Hematocrit 36.7L, Mean Corpuscular Volume 86, Mean Corpuscular Hemoglobin 32.1H, Mean Corpuscular Hemoglobin Concent 37.3H, Red Cell Distribution Width 11.3L, Platelet Count 254, Mean Platelet Volume 4.9L, Neutrophils (%) (Auto) 78.5H, Lymphocytes (%) (Auto) 11.8L, Monocytes (%) (Auto) 7.7, Eosinophils (%) (Auto) 1.0, Basophils (%) (Auto) 1.0, Sodium Level 134L, Potassium Level 3.0L, Chloride Level 103, Carbon Dioxide Level 18L, Anion Gap 13, Blood Urea Nitrogen 14, Creatinine 0.9, Estimat Glomerular Filtration Rate > 60, Glucose Level 201#H , Hemoglobin A1c 9.7H, Calcium Level 7.0L, Phosphorus Level 1.5L, Magnesium Level 1.8 05/05/19 07:20: White Blood Count [Pending], Red Blood Count 4.30L, Hemoglobin 13.7L, Hematocrit 36.3L, Mean Corpuscular Volume 84, Mean Corpuscular Hemoglobin 31.9H , Mean Corpuscular Hemoglobin Concent 37.8H, Red Cell Distribution Width 10.8L, Platelet Count 245, Mean Platelet Volume 5.2L, Neutrophils (%) (Auto) 72.3, Lymphocytes (%) (Auto) 15.8L, Monocytes (%) (Auto) 10.1H, Eosinophils (%) (Auto ) 0.5, Basophils (%) (Auto) 1.3, Sodium Level 138, Potassium Level 3.2L, Chloride Level 105, Carbon Dioxide Level 21, Anion Gap 12, Blood Urea Nitrogen 12, Creatinine 0.7, Estimat Glomerular Filtration Rate > 60, Glucose Level 245H , Calcium Level 7.7L, Lymphocytes [Pending], Percent CD3 Cells [Pending], Absolute CD3 Count [Pending], Percent CD4 Cells [Pending], Absolute CD4 Count [ Pending], T-Lymphocyte CD4/CD8 Ratio [Pending], Percent CD8 Cells [Pending], Absolute CD8 Count [Pending], HIV-1 RNA (PCR) log10 Value [Pending], HIV-1 RNA Ultraquantitative (PCR) [Pending] Height (Feet): 5 Height (Inches): 11.00 Weight (Pounds): 185 General Appearance: no apparent distress, alert EENT: normal ENT inspection Neck: normal alignment, supple Cardiovascular: normal rate, regular rhythm Respiratory/Chest: lungs clear, normal breath sounds Abdomen: non tender, soft Edema: no edema noted Arm (L), no edema noted Arm (R), no edema noted Leg (L), no edema noted Leg (R), no edema noted Pedal (L), no edema noted Pedal (R), no edema noted Generalized Moreno Hua MD May 05, 2019 08:41
[2019-05-05] MEDS ORDERED: Levemir Flexpen SUBQ SCH (09:00)
--- NOTE | 2019-05-05 09:58 | NUR ---
CASE MANAGEMENT: REVIEW 05/05/19 SI: DKA. 97.5 111 20 143/91 96% ON RA K+ 3.2 BG 245 CA+ 7.7 IS: IV VANCOMYCIN Q12HR IV LEVOFLOXACIN Q24HR IV METRONIDAZOLE Q8HR K-DUR PO X1 LEVEMIR SQ QD 2W STEP DOWN
[2019-05-05] MEDS ORDERED: Potassium Phosphate 30 MM in NS 275 ML IV SCH (10:00)
--- NOTE | 2019-05-05 10:01 | Pulmonology Progress Note ---
Assessment/Plan Assessment/Plan IMPRESSION: 1. Diabetic ketoacidosis. Resolved 2. Marked leukocytosis. Improved 3. Hyponatremia. Corrected 4. Hypokalemia. DISCUSSION: Dc home PO abx Levemir Rudy Fritz M.D. Subjective Interval Events: Off insulin gtt; feeling well Constitutional: Reports: no symptoms HEENT: Repors: no symptoms Respiratory: Reports: no symptoms Cardiovascular: Reports: no symptoms Allergies: Coded Allergies: MORPHINE (Unverified Allergy, Unknown, 05/02/19) PENICILLINS (Unverified Allergy, Unknown, 05/02/19) Objective Last 24 Hour Vital Signs Date Time Temp Pulse Resp B/P (MAP) Pulse Ox O2 Delivery O2 Flow Rate FiO2 05/05/19 08:00 Room Air 05/05/19 08:00 91 05/05/19 08:00 97.5 111 20 143/91 (108) 96 05/05/19 04:00 Room Air 05/05/19 04:00 98.4 88 24 133/68 (89) 97 05/05/19 03:50 66 05/05/19 00:00 98.1 92 24 142/77 (98) 99 05/05/19 00:00 Room Air 05/04/19 23:40 79 05/04/19 20:00 Room Air 05/04/19 20:00 98.6 94 24 139/81 (100) 97 05/04/19 19:07 91 05/04/19 19:07 86 05/04/19 17:00 93 14 130/76 (94) 99 05/04/19 16:00 Room Air 05/04/19 16:00 97.8 89 16 132/76 (94) 99 05/04/19 15:27 91 05/04/19 15:00 80 25 120/78 (92) 99 05/04/19 14:00 77 25 114/55 (74) 99 05/04/19 13:00 75 25 109/49 (69) 97 05/04/19 12:00 97.8 113 23 129/81 (97) 99 05/04/19 12:00 Room Air 05/04/19 11:29 91 05/04/19 11:00 120 31 127/74 (91) 99 Intake and Output 05/04/19 05/05/19 19:00 07:00 Intake Total 1826.158 ml 220 ml Output Total 2050 ml 800 ml Balance -223.842 ml -580 ml Intake Oral 820 ml 120 ml IV Total 1006.158 ml 100 ml Output Urine Total 2050 ml 800 ml # Voids 1 # Bowel Movements 3 1 General Appearance: no acute distress HEENT: normocephalic Respiratory/Chest: chest wall non-tender, lungs clear Cardiovascular: normal peripheral pulses Abdomen: normal bowel sounds Microbiology Date/Time Source Procedure Growth Status 05/03/19 16:35 Blood Blood Culture - Preliminary NO GROWTH AFTER 24 HOURS Resulted 05/03/19 16:15 Blood Blood Culture - Preliminary NO GROWTH AFTER 24 HOURS Resulted Laboratory Tests 05/05/19 07:20: White Blood Count [Pending], Red Blood Count 4.30L, Hemoglobin 13.7L, Hematocrit 36.3L, Mean Corpuscular Volume 84, Mean Corpuscular Hemoglobin 31.9H , Mean Corpuscular Hemoglobin Concent 37.8H, Red Cell Distribution Width 10.8L, Platelet Count 245, Mean Platelet Volume 5.2L, Neutrophils (%) (Auto) 72.3, Lymphocytes (%) (Auto) 15.8L, Monocytes (%) (Auto) 10.1H, Eosinophils (%) (Auto ) 0.5, Basophils (%) (Auto) 1.3, Lymphocytes [Pending], Sodium Level 138, Potassium Level 3.2L, Chloride Level 105, Carbon Dioxide Level 21, Anion Gap 12 , Blood Urea Nitrogen 12, Creatinine 0.7, Estimat Glomerular Filtration Rate > 60, Glucose Level 245H, Calcium Level 7.7L, Percent CD3 Cells [Pending], Absolute CD3 Count [Pending], Percent CD4 Cells [Pending], Absolute CD4 Count [ Pending], T-Lymphocyte CD4/CD8 Ratio [Pending], Percent CD8 Cells [Pending], Absolute CD8 Count [Pending], HIV-1 RNA (PCR) log10 Value [Pending], HIV-1 RNA Ultraquantitative (PCR) [Pending] Current Medications Medications (Trade) Dose Ordered Sig/Ugo Route PRN Reason Start Time Stop Time Status Last Admin Dose Admin Alprazolam (Xanax) 0.5 mg TIDPRN PRN ORAL For Anxiety 05/04/19 21:00 05/11/19 20:59 05/04/19 21:17 Dextrose (Dextrose 50%) 25 ml Q30M PRN IV Hypoglycemia 05/04/19 19:15 06/03/19 13:44 Dextrose (Dextrose 50%) 50 ml Q30M PRN IV Hypoglycemia 05/04/19 19:15 06/03/19 13:44 Insulin Aspart (NovoLOG) BEFORE MEALS AND HS SUBQ 05/04/19 21:00 06/03/19 16:29 05/05/19 06:30 Insulin Aspart (NovoLOG) 8 units NOVOTIAC SUBQ 05/05/19 06:30 06/03/19 16:49 05/05/19 07:28 Insulin Detemir (Levemir) 30 units DAILY SUBQ 05/05/19 09:00 06/03/19 14:59 05/05/19 08:04 Levofloxacin 100 ml @ 100 mls/hr Q24H IVPB 05/05/19 13:30 05/10/19 13:29 Metronidazole 100 ml @ 100 mls/hr Q8HR IVPB 05/04/19 22:00 05/10/19 14:29 05/04/19 21:17 Potassium Phosphate 30 mm/ Sodium Chloride 285 ml @ 47.5 mls/hr ONCE IV 05/05/19 10:00 05/05/19 16:00 Sodium Chloride 1,000 ml @ 100 mls/hr Q10H IV 05/04/19 19:00 06/02/19 19:29 05/04/19 19:27 Rudy Fritz MD May 05, 2019 10:01
[2019-05-05] MEDS ORDERED: NOVOLOG100 UNITS1 SUBQ (10:04)
--- NOTE | 2019-05-05 10:09 | NUR ---
NURSE NOTES: Dr. Fritz at nurse station, ordered to discontinue Levaquin IV and Flagyl IV. Per Dr. Fritz will discharge patient today, patient will not need antibiotics going home. Noted. IV antibiotics discontinued. wrote prescription for Lantus SQ. Noted.
--- NOTE | 2019-05-05 11:00 | NUR ---
DISCHARGE BARRIERS: PATIENT STATED PRIOR TO DISCHARGE HE ACTIVELY SEEKING MENTAL HEALTH TREATMENT AT [facility] T:[phone] KEL RESENDEZ IS THE ENGINE REPAIRER PRODUCTION PATIENT IS CURRENTLY HOMELESS [facility] IS ACTIVELY SEEKING PLACEMENT AT THIS TIME DISCHARGE HELD DISCHARGE IN AM 05/06/19
[2019-05-05 12:00] VITALS: BP 144/86
--- NOTE | 2019-05-05 15:07 | NUR ---
NURSE NOTES: Contacted and informed Dr. Fritz that patient is unable to be discharged at this time due to needing placement from [facility]. Currently no placement and this nurse is informed by case operator that patient will need to spend the night until safely discharged and picked up by [facility]. Dr. Fritz acknowledged. Noted. Will continue to monitor patient.
[2019-05-05] MEDS: ALPRAZolam 0.5mg tab ORAL PRN (15:21)
[2019-05-05 16:00] VITALS: BP 117/85
--- NOTE | 2019-05-05 17:00 | NUR ---
NURSE NOTES: Speaking with Mr. Bains, patient's case management rn from [facility], faxed over requested documents to Mr. Bains, necessary for patient's housing. Patient signed necessary documents, patient is alert and oriented x 4. Mr. Bains acknowledged receipt of documents, copies placed in chart. Patient is made aware and verbalized understanding.
--- NOTE | 2019-05-05 19:26 | NUR ---
HAND-OFF: Report given to Ankita Cortes RN.
--- NOTE | 2019-05-05 19:30 | NUR ---
NURSE NOTES: received pt from Leobardo RAJAN., pt is resting on the bed, obtunded, and open his eyes by touching him. pt is on vent, O2sat is 99%. no pain noted while observing pt. Right IJ is intact, patent, and clean. pt's Gtube site is clean, intact, and patent. bed at the lowest position, alarmed, and locked. call light within reach. will continue to monitor pt with plan of care.
[2019-05-05 20:00] VITALS: BP 141/81
[2019-05-06] VITALS: BP 147/83
[2019-05-06] MEDS: ALPRAZolam 0.5mg tab ORAL PRN (00:59)
[2019-05-06 04:00] VITALS: BP 144/84
--- NOTE | 2019-05-06 04:00 | NUR ---
NURSE NOTES: pt refused to take draw blood, pt states" I do not want to draw blood because i am going home today." explained benefits and risks regarding not taking the lab work (blood test). will continue to monitor pt. call light within reach.
[2019-05-06] MEDS: NovoLOG Insulin Flexpen SUBQ SCH ×3 (06:27→12:20)
--- NOTE | 2019-05-06 06:41 | General Progress Note ---
Assessment/Plan Problem List: (1) HIV disease ICD Codes: B20 - Human immunodeficiency virus [HIV] disease SNOMED: 69976147 (2) DKA, type 2 ICD Codes: E13.10 - Other specified diabetes mellitus with ketoacidosis without coma SNOMED: 927123601 (3) Noncompliance with medication regimen ICD Codes: Z91.14 - Patient's other noncompliance with medication regimen SNOMED: 007210084 Assessment/Plan: increase Levemir to 40 units daily increase Novolog to 10 units ac tid + SSI low Ca and Phos is suggestive of Vit D deficiency check D level start Vit D supplement Subjective ROS Limited/Unobtainable: Yes Allergies: Coded Allergies: MORPHINE (Unverified Allergy, Unknown, 05/02/19) PENICILLINS (Unverified Allergy, Unknown, 05/02/19) Subjective events noted glucose values are elevated - AG remained closed Ca and phos are low Item Value Date Time Bedside Blood Glucose 260 mg/dl H 05/06/19 0632 Bedside Blood Glucose 252 mg/dl H 05/05/19 2141 Bedside Blood Glucose 225 mg/dl H 05/05/19 1707 Bedside Blood Glucose 209 mg/dl H 05/05/19 1215 Bedside Blood Glucose 263 mg/dl H 05/05/19 0804 Bedside Blood Glucose 263 mg/dl H 05/05/19 0630 Objective Last 24 Hour Vital Signs Date Time Temp Pulse Resp B/P (MAP) Pulse Ox O2 Delivery O2 Flow Rate FiO2 05/06/19 04:00 Room Air 05/06/19 04:00 97.4 91 20 144/84 (104) 98 05/06/19 03:42 74 05/06/19 00:00 Room Air 05/06/19 00:00 97.4 98 24 147/83 (104) 98 05/05/19 23:35 79 05/05/19 20:00 61 05/05/19 20:00 Room Air 05/05/19 20:00 98.2 98 23 141/81 (101) 98 05/05/19 16:00 Room Air 05/05/19 16:00 100 05/05/19 16:00 97.7 78 19 117/85 (96) 98 05/05/19 12:00 98.0 83 20 144/86 (105) 97 05/05/19 12:00 Room Air 05/05/19 11:42 82 05/05/19 08:00 Room Air 05/05/19 08:00 91 05/05/19 08:00 97.5 111 20 143/91 (108) 96 Intake and Output 05/05/19 05/06/19 18:59 06:59 Intake Total 1585.0 ml 1440 ml Output Total 1000 ml Balance 1585.0 ml 440 ml Intake Oral 1000 ml 240 ml IV Total 585.0 ml 1200 ml Output Urine Total 1000 ml # Voids 6 3 # Bowel Movements 1 Laboratory Tests 05/05/19 07:20: White Blood Count [Pending], Red Blood Count 4.30L, Hemoglobin 13.7L, Hematocrit 36.3L, Mean Corpuscular Volume 84, Mean Corpuscular Hemoglobin 31.9H , Mean Corpuscular Hemoglobin Concent 37.8H, Red Cell Distribution Width 10.8L, Platelet Count 245, Mean Platelet Volume 5.2L, Neutrophils (%) (Auto) 72.3, Lymphocytes (%) (Auto) 15.8L, Monocytes (%) (Auto) 10.1H, Eosinophils (%) (Auto ) 0.5, Basophils (%) (Auto) 1.3, Lymphocytes [Pending], Sodium Level 138, Potassium Level 3.2L, Chloride Level 105, Carbon Dioxide Level 21, Anion Gap 12 , Blood Urea Nitrogen 12, Creatinine 0.7, Estimat Glomerular Filtration Rate > 60, Glucose Level 245H, Calcium Level 7.7L, Percent CD3 Cells [Pending], Absolute CD3 Count [Pending], Percent CD4 Cells [Pending], Absolute CD4 Count [ Pending], T-Lymphocyte CD4/CD8 Ratio [Pending], Percent CD8 Cells [Pending], Absolute CD8 Count [Pending], HIV-1 RNA (PCR) log10 Value [Pending], HIV-1 RNA Ultraquantitative (PCR) [Pending] Height (Feet): 5 Height (Inches): 11.00 Weight (Pounds): 184 General Appearance: no apparent distress Neck: normal alignment Cardiovascular: normal rate Respiratory/Chest: decreased breath sounds Pelvis: normal external exam Objective Current Medications Medications (Trade) Dose Ordered Sig/Ugo Route PRN Reason Start Time Stop Time Status Last Admin Dose Admin Alprazolam (Xanax) 0.5 mg TIDPRN PRN ORAL For Anxiety 05/04/19 21:00 05/11/19 20:59 05/06/19 00:59 Dextrose (Dextrose 50%) 25 ml Q30M PRN IV Hypoglycemia 05/04/19 19:15 06/03/19 13:44 Dextrose (Dextrose 50%) 50 ml Q30M PRN IV Hypoglycemia 05/04/19 19:15 06/03/19 13:44 Insulin Aspart (NovoLOG) BEFORE MEALS AND HS SUBQ 05/04/19 21:00 06/03/19 16:29 05/06/19 06:27 Insulin Aspart (NovoLOG) 8 units NOVOTIAC SUBQ 05/05/19 12:02 06/04/19 12:01 05/06/19 06:28 Insulin Detemir (Levemir) 36 units DAILY SUBQ 05/06/19 09:00 06/03/19 14:59 Sodium Chloride 1,000 ml @ 100 mls/hr Q10H IV 05/04/19 19:00 06/02/19 19:29 05/06/19 01:00 Tj Abrams MD May 06, 2019 06:41
--- NOTE | 2019-05-06 07:20 | NUR ---
NURSE NOTES: Received report from Ankita Cortes RN. Patient is resting in bed, in stable condition. No s/sx of SOB, breathing is even and unlabored, room air. Denies any presence of pain or discomfort at this time. Bed is in lowest position, brakes engaged. Call light is kept within easy reach. Will continue to monitor patient.
--- NOTE | 2019-05-06 07:35 | NUR ---
HAND-OFF: Report given to Leobardo RAJAN.
[2019-05-06 08:00] VITALS: BP 140/60
[2019-05-06] MEDS ORDERED: Vitamin D 1000 IU Tab ORAL SCH (09:00)
[2019-05-06] MEDS ORDERED: Levemir Flexpen SUBQ SCH ×2 (09:00)
--- NOTE | 2019-05-06 09:00 | NUR ---
NURSE NOTES: Spoke with Carmelo Bains, patient's counter caser from [facility], Mr. Bains informed this nurse that they are still looking for a temporary placement form him and will call this nurse before 1400 hours, inquired this nurse if transportation can be provided for patient to be taken to location. This nurse contacted Angie counter caser, per CM, transportation can be provided, a location is the important information. Noted. Awaiting Mr. Bains call back. Will continue to monitor patient.
--- NOTE | 2019-05-06 09:29 | Nephrology Progress Note ---
Assessment/Plan Assessment/Plan: A/P 1. KEVIN. resolved 2. Metabolic acidosis secondary to diabetic ketoacidosis. Resolved 3. Hyperkalemia. Resolved. AM labs pending 4. Diabetic ketoacidosis. Defer to Endocrinology. 5. E- ABN- AM labs pending Subjective Date patient seen: May 06, 2019 Time patient seen: 09:24 ROS Limited/Unobtainable: No Allergies: Coded Allergies: MORPHINE (Unverified Allergy, Unknown, 05/02/19) PENICILLINS (Unverified Allergy, Unknown, 05/02/19) Subjective Patient stable. Resting wel Objective Last 24 Hour Vital Signs Date Time Temp Pulse Resp B/P (MAP) Pulse Ox O2 Delivery O2 Flow Rate FiO2 05/06/19 08:00 97.0 95 20 140/60 (86) 96 05/06/19 08:00 Room Air 05/06/19 04:00 Room Air 05/06/19 04:00 97.4 91 20 144/84 (104) 98 05/06/19 03:42 74 05/06/19 00:00 Room Air 05/06/19 00:00 97.4 98 24 147/83 (104) 98 05/05/19 23:35 79 05/05/19 20:00 61 05/05/19 20:00 Room Air 05/05/19 20:00 98.2 98 23 141/81 (101) 98 05/05/19 16:00 Room Air 05/05/19 16:00 100 05/05/19 16:00 97.7 78 19 117/85 (96) 98 05/05/19 12:00 98.0 83 20 144/86 (105) 97 05/05/19 12:00 Room Air 05/05/19 11:42 82 Intake and Output 05/05/19 05/06/19 18:59 06:59 Intake Total 1585.0 ml 1440 ml Output Total 1000 ml Balance 1585.0 ml 440 ml Intake Oral 1000 ml 240 ml IV Total 585.0 ml 1200 ml Output Urine Total 1000 ml # Voids 6 3 # Bowel Movements 1 Height (Feet): 5 Height (Inches): 11.00 Weight (Pounds): 184 General Appearance: no apparent distress, alert EENT: normal ENT inspection Neck: normal alignment, supple Cardiovascular: normal rate, regular rhythm Respiratory/Chest: lungs clear, normal breath sounds Abdomen: non tender, soft Edema: no edema noted Arm (L), no edema noted Arm (R), no edema noted Leg (L), no edema noted Leg (R), no edema noted Pedal (L), no edema noted Pedal (R), no edema noted Generalized Moreno Hua MD May 06, 2019 09:29
--- NOTE | 2019-05-06 09:36 | NUR ---
NURSE NOTES: Dr. Hua at nurse station, made aware that patient refused morning labs and that patient has a discharge order from Dr. Fritz and is awaiting placement. Dr. Hua acknowledged, no new orders given at this time. Will continue to monitor patient.
--- NOTE | 2019-05-06 11:25 | NUR ---
NURSE NOTES: Spoke with Angie case coordinator, informed this nurse that they spoke with CM Mr. Bains, handling patient's case. Instructed to deliver patient to address: [address] [place] [id number]. There patient's case will be resumed by CM Mr. Bains. Noted. Charge nurse made aware.
--- NOTE | 2019-05-06 11:29 | NUR ---
DISCHARGE PLANNING: CURRENTLY PATIENT IS SEEKING MENTAL HEALTH ASSISTANCE FROM [facility] T: [phone] LITIGATION SPECIALIST KEL RESENDEZ FEELS IT IS SAFE FOR PATIENT TO DISCHARGE V[facility] LITIGATION SPECIALIST MYLENE FEEL IT IS SAFE FOR PATIENT TO BE SENT VIA [facility] FOR FURTHER CARE.
[2019-05-06] MEDS ORDERED: NovoLOG Insulin Flexpen SUBQ SCH (11:50)
--- NOTE | 2019-05-06 11:50 | NUR ---
NURSE NOTES: Dr. Fritz at nurse station, made aware of patient's discharge status and that it is okay for this facility to provide transportation for patient to go to specified location as instructed by case reviewer Mr. Bains. Noted.
[2019-05-06 12:00] VITALS: BP 136/90
[2019-05-06 12:11] LABS: ANION GAP 6 mmol/L (5-15); BLOOD UREA NITROGEN 9 mg/dL (7-18); CARBON DIOXIDE 24 MMOL/L (21-32); CHLORIDE 101 MMOL/L (98-107); CREATININE 0.8 MG/DL (0.55-1.30); POTASSIUM 3.1 MMOL/L (3.5-5.1); SODIUM 131 MMOL/L (136-145)
--- NOTE | 2019-05-06 13:32 | NUR ---
*-* INSURANCE *-* ALL CLINICALS HAVE BEEN FAXED TO: [facility] No ref# or [employer] #[phone] fax#[phone]
--- NOTE | 2019-05-06 13:45 | NUR ---
NURSE NOTES: Contacted [facility], , spoke with Ricardo, made personnel aware that patient is on their way via taxi. Made Don aware that this nurse was informed Mr. Bains is aware of patient's arrival to destination. Ricardo acknowledged. Noted.
[2019-05-06] MEDS ORDERED: Tubing IV Secondary IV ONE (14:04)
--- NOTE | 2019-05-06 14:04 | Pulmonology Progress Note ---
Assessment/Plan Assessment/Plan IMPRESSION: 1. Diabetic ketoacidosis. Resolved 2. Marked leukocytosis. Improved 3. Hyponatremia. Corrected DISCUSSION: Dc home PO abx Levemir Rudy Fritz M.D. Subjective Interval Events: None new; for dc today Constitutional: Reports: no symptoms HEENT: Repors: no symptoms Respiratory: Reports: no symptoms Cardiovascular: Reports: no symptoms Gastrointestinal/Abdominal: Reports: no symptoms Genitourinary: Reports: no symptoms Allergies: Coded Allergies: MORPHINE (Unverified Allergy, Unknown, 05/02/19) PENICILLINS (Unverified Allergy, Unknown, 05/02/19) Objective Last 24 Hour Vital Signs Date Time Temp Pulse Resp B/P (MAP) Pulse Ox O2 Delivery O2 Flow Rate FiO2 05/06/19 12:00 97.7 72 20 136/90 (105) 97 05/06/19 12:00 Room Air 05/06/19 12:00 81 05/06/19 08:00 116 05/06/19 08:00 97.0 95 20 140/60 (86) 96 05/06/19 08:00 Room Air 05/06/19 04:00 Room Air 05/06/19 04:00 97.4 91 20 144/84 (104) 98 05/06/19 03:42 74 05/06/19 00:00 Room Air 05/06/19 00:00 97.4 98 24 147/83 (104) 98 05/05/19 23:35 79 05/05/19 20:00 61 05/05/19 20:00 Room Air 05/05/19 20:00 98.2 98 23 141/81 (101) 98 05/05/19 16:00 Room Air 05/05/19 16:00 100 05/05/19 16:00 97.7 78 19 117/85 (96) 98 Intake and Output 05/05/19 05/06/19 19:00 07:00 Intake Total 1685.0 ml 1440 ml Output Total 1000 ml Balance 1685.0 ml 440 ml Intake Oral 1000 ml 240 ml IV Total 685.0 ml 1200 ml Output Urine Total 1000 ml # Voids 6 3 # Bowel Movements 1 General Appearance: no acute distress HEENT: normocephalic Respiratory/Chest: chest wall non-tender, lungs clear Cardiovascular: normal peripheral pulses Abdomen: normal bowel sounds Microbiology Date/Time Source Procedure Growth Status 05/03/19 16:35 Blood Blood Culture - Preliminary NO GROWTH AFTER 48 HOURS Resulted 05/03/19 16:15 Blood Blood Culture - Preliminary NO GROWTH AFTER 48 HOURS Resulted Laboratory Tests 05/06/19 11:35: Sodium Level 131L, Potassium Level 3.1L, Chloride Level 101, Carbon Dioxide Level 24, Anion Gap 6, Blood Urea Nitrogen 9, Creatinine 0.8, Estimat Glomerular Filtration Rate > 60, Glucose Level 239H, Calcium Level 8.0L, Vitamin D 25-Hydroxy [Pending], 25-Hydroxy Vitamin D2 [Pending], 25-Hydroxy Vitamin D3 [Pending] Current Medications Medications (Trade) Dose Ordered Sig/Ugo Route PRN Reason Start Time Stop Time Status Last Admin Dose Admin Alprazolam (Xanax) 0.5 mg TIDPRN PRN ORAL For Anxiety 05/04/19 21:00 05/11/19 20:59 05/06/19 00:59 Dextrose (Dextrose 50%) 25 ml Q30M PRN IV Hypoglycemia 05/04/19 19:15 06/03/19 13:44 Dextrose (Dextrose 50%) 50 ml Q30M PRN IV Hypoglycemia 05/04/19 19:15 06/03/19 13:44 Insulin Aspart (NovoLOG) BEFORE MEALS AND HS SUBQ 05/04/19 21:00 06/03/19 16:29 05/06/19 12:20 Insulin Aspart (NovoLOG) 10 units NOVOTIAC SUBQ 05/06/19 11:50 06/04/19 12:01 05/06/19 12:21 Insulin Detemir (Levemir) 40 units DAILY SUBQ 05/06/19 09:00 06/03/19 14:59 05/06/19 08:16 Sodium Chloride 1,000 ml @ 100 mls/hr Q10H IV 05/04/19 19:00 06/02/19 19:29 05/06/19 10:30 Vitamin D (Vitamin D) 2,000 intlu DAILY ORAL 05/06/19 09:00 06/05/19 08:59 05/06/19 08:08 Rudy Fritz MD May 06, 2019 14:04
--- NOTE | 2019-05-06 14:05 | NUR ---
NURSE NOTES: Patient discharged from hospital per Dr. Fritz's orders. Patient is going to [address] [place] [id number] per instructions of Angie GRUBER and Carmelo Bains CM. Noted. Patient given all discharge instructions and verbalized understanding. Patient given all prescribed medications and verbalized understanding of how to use insulin, patient states has been using medications for ten years. Noted. IV access removed, no active bleeding noted. Heart monitor removed and returned to bus monitor. ID band removed and placed in shredder. Patient left with all belongings, via taxi, in stable condition.
--- NOTE | 2019-05-06 16:02 | Cardiology Report ---
APPROVED REPORT EKG Measurement Heart [id number] Sinus tachycardia Left anterior fascicular block Possible Inferior infarct, age undetermined Abnormal ECG
--- NOTE | 2019-05-07 20:45 | Diagnostic Imaging Report ---
APPROVED REPORT CPT Code: 46808 Present Symptoms Shortness of breath BILATERAL: Imaging reveals a patent deep venous system bilaterally. There is no evidence of thrombus within the common femoral, superficial femoral, popliteal or tibial segments. The greater saphenous veins are within normal limits. Doppler indicates normal spontaneous flow within these segments.
--- NOTE | 2019-05-08 10:03 | Discharge Summary ---
Discharge Summary Discharge Summary _ DATE OF ADMISSION: 05/03/2019 DATE OF DISCHARGE: 05/06/2019 DISCHARGED BY: Dr. Tami Fritz CONSULTANTS: Dr. Moreno Enriquez BRIEF HOSPITAL COURSE: Patient is a 58-year-old male, with long-standing history of diabetes mellitus, hypertension, and HIV. He presented with hyperglycemia. Patient reported diarrhea and generalized weakness. He reported nausea and emesis. On evaluation at the ED, patient was tachycardic. Blood work showed WBC elevated to 31. Hemoglobin and hematocrit stable. Sodium 127. Potassium 5.4. Chloride 93. Anion gap 26. BUN 21, creatinine 1.5. Glucose 486. Lipase was normal. ABG showed pH 6.9. CO2 14. He was started on aggressive IV hydration. Started on insulin drip. He was then admitted to ICU for DKA. He was seen by dipper clock and watch hands. Patient had acute kidney injury most likely due to severe volume depletion. He was continued on IV hydration. Metabolic acidosis was secondary to diabetic ketoacidosis. Hyperkalemia was due to potassium shift from acidosis. Hyponatremia was secondary to hyperglycemia. He had leukocytosis. ID consulted. There was concern for sepsis. He was given vancomycin, levofloxacin and Flagyl empirically. Patient with history of HIV. Patient on Biktarvy (not available on formulary). CD4 count 273. Advised to resume retrovirals upon DC. He was followed by a neurologist. Anion gap was monitored. Hemoglobin A1c 9.7. Anion gap closed. On 05/04/2019, insulin drip was discontinued. He was given Levemir and NovoLog. He was transferred to stepdown unit. He was given diabetic education. Venous duplex of lower extremity was negative for acute DVT. Blood culture was negative. Urinalysis and chest x-ray negative. Antibiotics were discontinued. Patient had low calcium and phosphorus levels. He was started on vitamin D supplementation. Metabolic acidosis resolved. Hyponatremia was corrected. He was cleared for discharge home. FINAL DIAGNOSES: Diabetic ketoacidosis Leukocytosis, possible sepsis, negative cultures, improved Hyponatremia, corrected Acute kidney injury, resolved Hyperkalemia, resolved HIV Noncompliance with medication regimen DISPOSITION: Patient was discharged home. DISCHARGE MEDICATIONS: Refer to Discharge Medication List. DISCHARGE INSTRUCTIONS: Follow-up with PCP in a week. I have been assigned to complete a discharge summary on this account, I was not involved with the patient's management.--FLORINDA Sandoval Jacqueline Robles NP May 08, 2019 10:03
--- NOTE | 2019-05-09 15:36 | NUR ---
*-* INSURANCE *-* discharge summary BEEN FAXED TO: TONYA Castle No ref# or CM yet #[phone] fax#[phone]
== END 2019-05-06 14:05 | disposition home or self-care (01) | DRG 890 ==
LOC: EDBD 22:40 → EMR 23:10 → EDBEDREQ 23:41 → ICU 05-03 00:05 → EDBEDREQ 05-03 00:18 → 2W 05-03 17:22
DX: A41.9 Sepsis, unspecified organism (principal); B20 Human immunodeficiency virus [HIV] disease; N17.9 Acute kidney failure, unspecified; E11.10 Type 2 diabetes mellitus with ketoacidosis without coma; E86.0 Dehydration; E87.5 Hyperkalemia; E87.1 Hypo-osmolality and hyponatremia; Z88.6 Allergy status to analgesic agent; Z88.0 Allergy status to penicillin; I10 Essential (primary) hypertension; D72.829 Elevated white blood cell count, unspecified; E86.9 Volume depletion, unspecified; Z91.14 Patient's other noncompliance with medication regimen; I25.10 Atherosclerotic heart disease of native coronary artery without angina pectoris
CPT/HCPCS: 36415; 36600; 71045; 80048; 80053; 80307; 81003; 82306; 82803; 82962; 83036; 83605; 83690; 83735; 84100; 84484; 85007; 85025; 86360; 87040; 87081; 87536; 93005; 93970; 96361; 96365; 96375; 99291; G0480; J1815; J2405; J7030; J8499; S5561

== ENCOUNTER 2019-05-11 19:38 | Inpatient (IN) | payer OTHER ==
[~2019-05-11] VITALS: Ht 182.9 cm; Wt 85.7 kg
[~2019-05-11 19:38] MED LIST changes: +BIKTARVY 50-201 EACH PO; +DEPAKOTE500 MG PO; +HUMALOG 75/255 UNIT1 SUBQ; +MIRTAZAPINE15 MG ORAL; +NEURONTIN300 MG ORAL; +NOVOLOG100 UNITS1 SUBQ; +PAXIL30 MG ORAL; +TRAZODONE HCL100 MG ORAL
[2019-05-11 19:50] VITALS: BP 178/79
--- NOTE | 2019-05-11 20:08 | Emergency Room Report ---
History of Present Illness General Chief Complaint: Behavioral Complaint Source: Patient Present Illness HPI 58-year-old male history of diabetes type 1, HIV, DKA recent admission, presents with fatigue, elevated blood sugar, patient has not taken his home insulin x1 week, however patient was discharged 5 days ago, he may have only been without insulin for 3 days, he states he lost it, patient denies any fevers chills chest pain but he does endorse some shortness of breath, his generalized fatigue is worse when he does not take his insulin alleviated by taking his insulin severity is moderate, constant patient presents for evaluation Allergies: Coded Allergies: MORPHINE (Unverified Allergy, Unknown, 05/02/19) PENICILLINS (Unverified Allergy, Unknown, 05/02/19) Patient History Past Medical History: see triage record Reviewed Nursing Documentation: PMH: Agreed; PSxH: Agreed Nursing Documentation-PMH Hx Cardiac Problems: Yes - HIV positive Hx Asthma: No Hx COPD: No Hx Diabetes: Yes - IDDM Hx Cancer: No Hx Gastrointestinal Problems: Yes - DIARRHEA, NAUSEA Hx Dialysis: No History Of Psychiatric Problem: Yes - bipolar depression Hx Neurological Problems: No Hx Cerebrovascular Accident: No Hx Seizures: No Review of Systems All Other Systems: negative except mentioned in HPI Physical Exam Vital Signs Date Time Temp Pulse Resp B/P (MAP) Pulse Ox O2 Delivery O2 Flow Rate FiO2 05/11/19 19:43 98.4 113 24 178/79 (112) 97 Room Air Sp02 EP Interpretation: reviewed, normal General Appearance: well appearing, no apparent distress, alert Head: normocephalic, atraumatic Eyes: bilateral eye PERRL, bilateral eye EOMI ENT: uvula midline, dry mucus membranes Neck: supple, thyroid normal, supple/symm/no masses Respiratory: lungs clear, no respiratory distress, no retraction, no accessory muscle use Cardiovascular #1: normal peripheral pulses, regular rate, rhythm, no edema, no gallop, no murmur Gastrointestinal: non tender, soft, no guarding, no rebound Musculoskeletal: normal inspection Neurologic: alert, oriented x3 Psychiatric: mood/affect normal Skin: no rash, warm/dry Procedures Critical Care Time Critical Care Time Given the critical condition in which the patient arrived, the patient was immediately assessed by myself and the nurse, and cardiac monitoring initiated due to the potential for rapid decompensation of the patient's clinical condition. During the course of the patient's stay, I spent a considerable amount of time at the bedside performing serial re-evaluations of the patient's hemodynamic and clinical status because of the recognized potential threat to life or limb in this condition. I then had a chance to review not only all of the available current laboratory and radiographic studies obtained today, but I also reviewed old records available to me at the time. Additionally, any ancillary information available including laborer syrup machine records were reviewed. Sequential vital signs were obtained. Critical Care time of 37 minutes was performed exclusive of billable procedures. Medical Decision Making Diagnostic Impression: Primary Impression: Diabetic ketoacidosis Qualified Codes: E10.10 - Type 1 diabetes mellitus with ketoacidosis without coma Additional Impressions: Noncompliance with medication regimen Passive suicidal ideations ER Course 58-year-old male presents with generalized weakness, states he has not been taking his insulin for 5 days after he clarified his story. Differential diagnosis includes DKA, hyperglycemia, sepsis Patient without anion gap however he has positive acetones as well as ketones in the urine, concerning for developing DKA Patient most likely in the early stages, will start insulin drip Will admit patient to ICU Patient can then be converted to his home insulin Patient admitted to Dr. Khalil / Shane Patient also with passive suicidal ideations without plan and access to weapons / firearms Laboratory Tests Test 05/11/19 20:10 White Blood Count 8.0 K/UL (4.8-10.8) Red Blood Count 4.48 M/UL (4.70-6.10) L Hemoglobin 14.3 G/DL (14.2-18.0) Hematocrit 40.2 % (42.0-52.0) L Mean Corpuscular Volume 90 FL (80-99) Mean Corpuscular Hemoglobin 31.9 PG (27.0-31.0) H Mean Corpuscular Hemoglobin Concent 35.5 G/DL (32.0-36.0) Red Cell Distribution Width 12.4 % (11.6-14.8) Platelet Count 421 K/UL (150-450) Mean Platelet Volume 5.0 FL (6.5-10.1) L Neutrophils (%) (Auto) 73.4 % (45.0-75.0) Lymphocytes (%) (Auto) 11.2 % (20.0-45.0) L Monocytes (%) (Auto) 12.7 % (1.0-10.0) H Eosinophils (%) (Auto) 0.6 % (0.0-3.0) Basophils (%) (Auto) 2.2 % (0.0-2.0) H Prothrombin Time 10.0 SEC (9.30-11.50) Prothrombin Time INR 0.9 (0.9-1.1) PTT 27 SEC (23-33) Urine Color Pale yellow Urine Appearance Slightly cloudy Urine pH 5 (4.5-8.0) Urine Specific Brant 1.020 (1.005-1.035) Urine Protein 2+ (NEGATIVE) H Urine Glucose (UA) 4+ (NEGATIVE) H Urine Ketones 4+ (NEGATIVE) H Urine Blood 2+ (NEGATIVE) H Urine Nitrite Negative (NEGATIVE) Urine Bilirubin Negative (NEGATIVE) Urine Urobilinogen Normal MG/DL (0.0-1.0) Urine Leukocyte Esterase Negative (NEGATIVE) Urine RBC 5-10 /HPF (0 - 0) H Urine WBC 0-2 /HPF (0 - 0) Urine Squamous Epithelial Cells Occasional /LPF Urine Bacteria Few /HPF (NONE) Urine Mucus Moderate /LPF (NONE/OCC) H Sodium Level 129 MMOL/L (136-145) L Potassium Level 5.1 MMOL/L (3.5-5.1) Chloride Level 94 MMOL/L (98-107) L Carbon Dioxide Level 28 MMOL/L (21-32) Anion Gap 8 mmol/L (5-15) Blood Urea Nitrogen 16 mg/dL (7-18) Creatinine 1.1 MG/DL (0.55-1.30) Estimate Glomerular Filtration Rate > 60 mL/min (>60) Glucose Level 492 MG/DL (74-106) H Lactic Acid Level 1.70 mmol/L (0.4-2.0) Calcium Level 8.4 MG/DL (8.5-10.1) L Magnesium Level 1.9 MG/DL (1.8-2.4) Total Bilirubin 0.8 MG/DL (0.2-1.0) Aspartate Amino Transferase (AST) 44 U/L (15-37) H Alanine Aminotransferase (ALT) 60 U/L (12-78) Alkaline Phosphatase 118 U/L (46-116) H Total Protein 7.7 G/DL (6.4-8.2) Albumin 3.5 G/DL (3.4-5.0) Globulin 4.2 g/dL Albumin/Globulin Ratio 0.8 (1.0-2.7) L Lipase 156 U/L (73-393) Salicylates Level 3.8 ug/mL (2.8-20) Urine Opiates Screen Negative (NEGATIVE) Acetaminophen Level < 2 MCG/ML (10-30) L Urine Barbiturates Screen Negative (NEGATIVE) Phencyclidine (PCP) Screen Negative (NEGATIVE) Urine Amphetamines Screen Negative (NEGATIVE) Urine Benzodiazepines Screen Negative (NEGATIVE) Urine Cocaine Screen Negative (NEGATIVE) Urine Marijuana (THC) Screen Negative (NEGATIVE) Serum Alcohol < 3 mg/dL Acetone Level Positive-moderate (NEGATIVE) EKG Diagnostic Results EKG Time: 19:57 EP Interpretation: NSR rate 93, qtc 440, no acute st elevations, left axis dev Rhythm Strip Diag. Results Rhythm Strip Time: 21:11 EP Interpretation: yes Rate: 86 Rhythm: NSR, no PVC's, no ectopy Chest X-Ray Diagnostic Results Chest X-Ray Diagnostic Results : Chest X-Ray Ordered: Yes # of Views/Limited/Complete: 1 View Indication: Shortness of Breath EP Interpretation: Yes Interpretation: no consolidation, no effusion, no pneumothorax, no acute cardiopulmonary disease Impression: No acute disease Electronically Signed by: Servando Solorzano MD Last Vital Signs Date Time Temp Pulse Resp B/P (MAP) Pulse Ox O2 Delivery O2 Flow Rate FiO2 05/11/19 19:43 98.4 113 24 178/79 (112) 97 Room Air Disposition: ADMITTED INPATIENT Condition: Serious Servando Solorzano MD May 11, 2019 20:08
[2019-05-11 20:42] LABS: APPEARANCE,URINE SLIGHTLY CLOUDY; BILIRUBIN, URINE NEGATIVE (NEGATIVE); COLOR,URINE PALE YELLOW; GLUCOSE, URINE (UA) 4+ (NEGATIVE); KETONES,URINE 4+ (NEGATIVE); LEUKOCYTE ESTERASE ,URINE NEGATIVE (NEGATIVE); NITRITE,URINE NEGATIVE (NEGATIVE); PH,URINE 5 (4.5-8.0); PROTEIN,URINE 2+ (NEGATIVE); UROBILINOGEN,URINE NORMAL MG/DL (0.0-1.0)
[2019-05-11 20:48] LABS: INR 0.9 (0.9-1.1)
[2019-05-11 20:51] LABS: BASOPHILS % (AUTO) 2.2 % (0.0-2.0); EOSINOPHILS % (AUTO) 0.6 % (0.0-3.0); HEMATOCRIT 40.2 % (42.0-52.0); HEMOGLOBIN 14.3 G/DL (14.2-18.0); LYMPHOCYTES % (AUTO) 11.2 % (20.0-45.0); MEAN CORPUSCULAR VOLUME 90 FL (80-99); MONOCYTES % (AUTO) 12.7 % (1.0-10.0); NEUTROPHILS % (AUTO) 73.4 % (45.0-75.0); PLATELET COUNT 421 K/UL (150-450); RED BLOOD COUNT 4.48 M/UL (4.70-6.10); RED CELL DISTRIBUTION WIDTH 12.4 % (11.6-14.8)
[2019-05-11 20:52] LABS: ANION GAP 8 mmol/L (5-15); BLOOD UREA NITROGEN 16 mg/dL (7-18); CALCIUM 8.4 MG/DL (8.5-10.1); CARBON DIOXIDE 28 MMOL/L (21-32); CHLORIDE 94 MMOL/L (98-107); CREATININE 1.1 MG/DL (0.55-1.30); POTASSIUM 5.1 MMOL/L (3.5-5.1); SODIUM 129 MMOL/L (136-145)
[2019-05-11 20:53] LABS: ALANINE AMINOTRANSFERASE 60 U/L (12-78); ALBUMIN 3.5 G/DL (3.4-5.0); ALBUMIN/GLOBULIN RATIO 0.8 (1.0-2.7); ALKALINE PHOSPHATASE 118 U/L (46-116); ASPARTATE AMINO TRANSFERASE 44 U/L (15-37); BILIRUBIN,TOTAL 0.8 MG/DL (0.2-1.0)
[2019-05-11 22:15] VITALS: BP 155/76
[2019-05-11 22:43] VITALS: BP 141/100
[2019-05-11 23:00] VITALS: BP 147/86
[2019-05-11] MEDS ORDERED: Insulin Human Regular 100units/ml 3ml IV PRN ×2 (23:00)
[2019-05-11] MEDS: ALPRAZolam 0.5mg tab ORAL PRN (23:54)
[2019-05-12] VITALS (24 sets, daily range): BP systolic 46–152; BP diastolic 26–79
--- NOTE | 2019-05-12 | History and Physical Report ---
DATE OF ADMISSION: 05/11/2019 REASON FOR ADMISSION: DKA and suicidal ideation. HISTORY OF PRESENT ILLNESS: This is a 58-year-old male, was recently discharged from this facility after being treated for DKA. He also was started on an HIV workup and advised to outpatient care. He apparently did not comply with his medications, specifically insulin, stating he lost it. He came to the emergency room today complaining of shortness of breath and fatigue, dry mouth and dehydration. He also noted suicidal ideation. PAST MEDICAL HISTORY: 1. HIV/AIDS. 2. Bipolar disorder. 3. Insulin-requiring diabetes mellitus. ALLERGIES: Include morphine and penicillin. SOCIAL HISTORY: Negative for smoking, alcohol, or substance abuse. FAMILY HISTORY: Noncontributory. REVIEW OF SYSTEMS: Otherwise unremarkable. He did have a T-cell count and other HIV markers obtained for the last week while hospitalized. We do not have the results yet available presently. PHYSICAL EXAMINATION: VITAL SIGNS: Blood pressure 178/79, pulse 113, respirations 24, afebrile. HEENT: Oropharynx dry. NECK: Supple. LUNGS: Clear. Jugular venous pressure normal. CARDIAC: Regular rhythm and rate. Normal S1, S2 with no murmur, rub, or gallop. ABDOMEN: Soft and nontender. EXTREMITIES: Without edema. PSYCHIATRIC: Mood is depressed. LABORATORY DATA: White count 8, hemoglobin 14. Urinalysis is abnormal with ketones and glucose. Anion gap is 8. Sodium is 129, potassium 5.1, bicarb 28, BUN 16, creatinine 1.1. Glucose 492. Lactic acid is normal. Magnesium 1.9. Lipase is normal. Drug screen is negative. Acetone positive. IMPRESSION: 1. DKA. 2. HIV/AIDS. 3. Noncompliance. 4. Bipolar disorder. 5. Suicidal ideation with no active plan. PLAN OF CARE: 1. ICU monitoring. 2. Insulin drip, then titrate long-acting insulin again. 3. Resume HIV therapy, obtain prior workup. 4. Sitter for protection tonight or ICU care. 5. Psych consultation will be obtained as well. 6. IV fluid hydration and monitor electrolytes and replace accordingly. Abisai Khalil M.D. DR: JEISON JOB#: [id number] CC:
[2019-05-12] MEDS: TraZODone 100mg tab ORAL SCH ×2 (00:11→20:28)
[2019-05-12] MEDS: Insulin Rate Change 1 Each MISC PRN ×6 (01:09→06:09)
[2019-05-12 05:01] LABS: BASOPHILS % (AUTO) 1.6 % (0.0-2.0); HEMATOCRIT 34.6 % (42.0-52.0); HEMOGLOBIN 12.5 G/DL (14.2-18.0); LYMPHOCYTES % (AUTO) 26.7 % (20.0-45.0); MEAN CORPUSCULAR VOLUME 89 FL (80-99); MONOCYTES % (AUTO) 14.4 % (1.0-10.0); NEUTROPHILS % (AUTO) 55.3 % (45.0-75.0); PLATELET COUNT 373 K/UL (150-450); RED BLOOD COUNT 3.91 M/UL (4.70-6.10); RED CELL DISTRIBUTION WIDTH 12.3 % (11.6-14.8); WHITE BLOOD COUNT 6.3 K/UL (4.8-10.8)
[2019-05-12 05:39] LABS: ALANINE AMINOTRANSFERASE 45 U/L (12-78); ALBUMIN 2.8 G/DL (3.4-5.0); ALBUMIN/GLOBULIN RATIO 0.8 (1.0-2.7); ALKALINE PHOSPHATASE 89 U/L (46-116); ANION GAP 3 mmol/L (5-15); ASPARTATE AMINO TRANSFERASE 30 U/L (15-37); BILIRUBIN,TOTAL 0.5 MG/DL (0.2-1.0); BLOOD UREA NITROGEN 13 mg/dL (7-18); CALCIUM 7.7 MG/DL (8.5-10.1); CARBON DIOXIDE 28 MMOL/L (21-32); CHLORIDE 104 MMOL/L (98-107); CREATININE 0.9 MG/DL (0.55-1.30); POTASSIUM 3.7 MMOL/L (3.5-5.1); SODIUM 135 MMOL/L (136-145)
[2019-05-12] MEDS ORDERED: PARoxetine 10mg tab ORAL SCH (09:00)
[2019-05-12] MEDS: Heparin 5000 units/ml inj SUBQ SCH ×2 (09:00→20:14)
[2019-05-12] MEDS: Vitamin D 1000 IU Tab ORAL SCH (09:20)
[2019-05-12] MEDS: Depakote 500mg tab ORAL SCH ×2 (09:20→20:27)
[2019-05-12] MEDS: NovoLOG Insulin Flexpen SUBQ SCH ×5 (12:04→20:29)
[2019-05-12] MEDS: Levemir Flexpen SUBQ SCH (12:05)
--- NOTE | 2019-05-12 12:55 | Diagnostic Imaging Report ---
Indication: Chest pain Comparison: 05/04/2019 A single view chest radiograph was obtained. Findings: Cardiomediastinal appearance is within normal limits for age. The lungs are clear. Pulmonary vascularity is appropriate. The diaphragmatic contour is smooth and costophrenic angles are sharp. No pleural effusions are identified. The bones are unremarkable. Impression: No acute findings
--- NOTE | 2019-05-12 16:15 | Consultation ---
DATE OF CONSULTATION: 05/12/2019 ENDOCRINOLOGY CONSULTATION CONSULTING PHYSICIAN: Tj Abrams M.D. REFERRING PHYSICIAN: Abisai Khalil M.D. REASON FOR CONSULTATION: Management of type 1 diabetes. HISTORY OF PRESENT ILLNESS: The patient is a 58-year-old male, known to me from history of admission to [facility] with DKA. The patient re-presented to the [facility] with noncompliance with medication and suicidal ideation, admitted to the ICU, started on insulin drip. I was called to manage diabetes. Diabetes on the previous admission was managed with 30 units daily and NovoLog 8 units before each meal. PAST MEDICAL HISTORY: 1. Diabetes. 2. Hypertension. 3. HIV. 4. Coronary artery disease. PAST SURGICAL HISTORY: None. ALLERGIES TO MEDICATION: Morphine and penicillin. FAMILY HISTORY: Hypertension and diabetes. REVIEW OF SYSTEMS: As per HPI. LABORATORY VALUES: WBC 6, hemoglobin 12, hematocrit 34, platelets of 373. Sodium 135, potassium 3.7, chloride 104, bicarb 28, BUN 13, creatinine 0.9, anion gap of 3, glucose of 108. TSH of 0.7. Glucose on presentation 492. PHYSICAL EXAMINATION: VITAL SIGNS: Blood pressure 114/47, pulse 67, temperature of 99, respiratory rate of 19. HEENT: Pupils reactive to light. Sclerae anicteric. NECK: No JVD. HEART: Regular. LUNGS: Clear. ABDOMEN: Positive bowel sounds. EXTREMITIES: No clubbing, cyanosis, or edema. DIAGNOSES: 1. Type 1 insulin-dependent diabetes out of control. 2. HIV. 3. Suicidal ideation. PLAN: 1. Discontinue insulin drip. 2. Start Levemir 30 units daily. 3. Start NovoLog 8 units before each. 4. NovoLog sliding scale before meals and at bedtime. 5. Continue vitamin D. 6. Further adjustment according to blood glucose values. Thank you, Dr. Khalil, for the courtesy of this consultation. Tj Abrams M.D. DR: YUVAL JOB#: [id number] CC:
[2019-05-12] MEDS: ALPRAZolam 0.5mg tab ORAL PRN (16:39)
[2019-05-12] MEDS ORDERED: TraZODone 100mg tab ORAL SCH (23:00)
[2019-05-13] VITALS (24 sets, daily range): BP systolic 93–123; BP diastolic 48–72
--- NOTE | 2019-05-13 05:30 | Progress Note ---
DATE: 05/12/2019 CARDIOLOGY AND INTERNAL MEDICINE PROGRESS NOTE SUBJECTIVE: The patient admits to noncompliance with therapies as an outpatient. He still has suicidal ideation, although no plan and has never actively tried to commit suicide in the past. He glucose parameters have improved. Acetone level decreased and insulin drip has been discontinued this morning in favor of subcutaneous insulin. PHYSICAL EXAMINATION: VITAL SIGNS: Blood pressure 114/50, pulse 70, respirations 18. NECK: Supple. LUNGS: Clear. CARDIAC: Regular. Normal S1, S2. ABDOMEN: Soft. EXTREMITIES: No edema. PSYCHIATRIC: Depressed mood. LABORATORY DATA: White count 6, hemoglobin 12. Sodium 135, potassium 3.7, BUN 13, and creatinine 0.9. Albumin 3.8. IMPRESSION: 1. DKA, resolving. 2. Insulin-requiring diabetes mellitus, poorly controlled due to noncompliance. 3. Suicidal ideation. 4. HIV/AIDS PLAN: As outlined above. HIV therapy to be initiated when available. Abisai Khalil M.D. DR: SAHARA JOB#: [id number] CC: MARIJA
[2019-05-13] MEDS: NovoLOG Insulin Flexpen SUBQ SCH ×7 (06:16→20:34)
[2019-05-13] MEDS: Vitamin D 1000 IU Tab ORAL SCH (08:46)
[2019-05-13] MEDS: Depakote 500mg tab ORAL SCH (08:47)
[2019-05-13] MEDS: Heparin 5000 units/ml inj SUBQ SCH ×2 (08:48→20:25)
[2019-05-13] MEDS: Levemir Flexpen SUBQ SCH (08:49)
--- NOTE | 2019-05-13 09:00 | Consultation ---
DATE OF CONSULTATION: 05/12/2019 HISTORY OF PRESENT ILLNESS: This is a 58-year-old male with a history of HIV/AIDS, bipolar disorder, and type 1 diabetes, who has been admitted to the hospital due to DKA and suicidal thoughts. The patient is severely anxious, presents with depressed mood, anhedonia, worthlessness, hopelessness, and decreased energy. PAST PSYCHIATRIC HISTORY: Bipolar disorder. PAST MEDICAL HISTORY: 1. Hyperlipidemia. 2. Diabetes mellitus type 1. ALLERGIES: Morphine and penicillin. SUBSTANCE USE HISTORY: He denies any illicit drug use or alcohol. System is negative for drugs. MENTAL STATUS EXAMINATION: The patient is alert and oriented times to self, place, and situation. Mood is anxious and depressed. Affect is constricted, congruent with mood. Thought process is concrete. Thought content, positive for suicidal ideation with any plan to end his life. He stated that he does not have a gun. No psychotic symptoms. Cognition is intact. Insight and judgment is fair. ASSESSMENT: AXIS I: Bipolar disorder. Anxiety disorder. AXIS II: Deferred. AXIS III: As above. AXIS IV: Low. AXIS V: 20. PLAN: 1. The patient will be continued with trazodone 300 mg at bedtime. 2. Discontinue the Paxil. 3. Discontinue the Remeron. 4. We will start the patient on lithium. 5. Continue the Xanax. Beba Cantu M.D. DR: FAM JOB#: [id number] CC:
[2019-05-13 10:49] LABS: BASOPHILS % (AUTO) 1.9 % (0.0-2.0); EOSINOPHILS % (AUTO) 1.4 % (0.0-3.0); HEMATOCRIT 36.1 % (42.0-52.0); HEMOGLOBIN 13.1 G/DL (14.2-18.0); MEAN CORPUSCULAR VOLUME 89 FL (80-99); MONOCYTES % (AUTO) 9.9 % (1.0-10.0); NEUTROPHILS % (AUTO) 60.8 % (45.0-75.0); PLATELET COUNT 319 K/UL (150-450); RED BLOOD COUNT 4.08 M/UL (4.70-6.10); RED CELL DISTRIBUTION WIDTH 12.5 % (11.6-14.8); WHITE BLOOD COUNT 6.2 K/UL (4.8-10.8)
[2019-05-13 11:17] LABS: ALANINE AMINOTRANSFERASE 40 U/L (12-78); ALBUMIN 2.6 G/DL (3.4-5.0); ALBUMIN/GLOBULIN RATIO 0.7 (1.0-2.7); ALKALINE PHOSPHATASE 82 U/L (46-116); ANION GAP 2 mmol/L (5-15); ASPARTATE AMINO TRANSFERASE 19 U/L (15-37); BILIRUBIN,TOTAL 0.4 MG/DL (0.2-1.0); BLOOD UREA NITROGEN 12 mg/dL (7-18); CALCIUM 7.6 MG/DL (8.5-10.1); CARBON DIOXIDE 28 MMOL/L (21-32); CHLORIDE 107 MMOL/L (98-107); CREATININE 0.9 MG/DL (0.55-1.30); POTASSIUM 4.2 MMOL/L (3.5-5.1); SODIUM 136 MMOL/L (136-145)
--- NOTE | 2019-05-13 13:58 | Cardiology Report ---
APPROVED REPORT EKG Measurement Heart [id number] Normal sinus rhythm Left axis deviation Pulmonary disease pattern Abnormal ECG
--- NOTE | 2019-05-13 14:32 | General Progress Note ---
Assessment/Plan Problem List: (1) Diabetes mellitus out of control ICD Codes: E11.65 - Type 2 diabetes mellitus with hyperglycemia SNOMED: 40446725, 773400582 (2) HIV disease ICD Codes: B20 - Human immunodeficiency virus [HIV] disease SNOMED: 61440800 (3) Hyperglycemia ICD Codes: R73.9 - Hyperglycemia, unspecified SNOMED: 35989980 (4) Hypertension ICD Codes: I10 - Essential (primary) hypertension SNOMED: 89859738 Assessment/Plan: Levemir 30 units qam Novolog 8 units ac tid + NISS ac / hs Subjective Allergies: Coded Allergies: MORPHINE (Unverified Allergy, Unknown, 05/02/19) PENICILLINS (Unverified Allergy, Unknown, 05/02/19) All Systems: reviewed and negative except above Subjective events noted doing better denies complaints Item Value Date Time Bedside Blood Glucose 96 mg/dl 05/13/19 1245 Bedside Blood Glucose 294 mg/dl H 05/13/19 0849 Bedside Blood Glucose 294 mg/dl H 05/13/19 0630 Bedside Blood Glucose 195 mg/dl H 05/12/19 2100 Bedside Blood Glucose 116 mg/dl 05/12/19 1644 Objective Last 24 Hour Vital Signs Date Time Temp Pulse Resp B/P (MAP) Pulse Ox O2 Delivery O2 Flow Rate FiO2 05/13/19 14:00 74 22 98/64 (75) 95 05/13/19 13:00 73 20 110/66 (81) 92 05/13/19 12:00 88 05/13/19 12:00 97.7 96 17 104/67 (79) 95 05/13/19 12:00 Room Air 05/13/19 11:00 69 16 98/66 (77) 94 05/13/19 10:00 93 17 93/51 (65) 97 05/13/19 09:00 92 20 109/64 (79) 95 05/13/19 08:00 64 05/13/19 08:00 Room Air 05/13/19 08:00 98.7 75 22 118/53 (74) 95 05/13/19 07:00 70 17 94/52 (66) 91 05/13/19 06:00 74 17 114/61 (78) 90 05/13/19 05:00 68 19 116/64 (81) 93 05/13/19 04:00 97.6 67 18 95/48 (64) 94 05/13/19 04:00 Room Air 05/13/19 03:19 79 05/13/19 03:00 64 18 96/50 (65) 97 05/13/19 02:00 64 18 103/53 (70) 97 05/13/19 01:00 63 16 106/67 (80) 96 05/13/19 00:00 62 05/13/19 00:00 98.7 63 16 106/67 (80) 96 05/13/19 00:00 Room Air 05/12/19 23:00 66 19 88/48 (61) 95 05/12/19 22:00 68 21 98/51 (67) 95 05/12/19 21:00 74 21 107/67 (80) 94 05/12/19 20:00 97.8 74 20 123/76 (92) 93 05/12/19 20:00 Room Air 05/12/19 19:29 77 05/12/19 19:00 87 20 124/72 (89) 95 05/12/19 18:00 Room Air 05/12/19 18:00 78 19 46/26 (33) 94 05/12/19 17:00 98.6 68 17 124/70 (88) 95 05/12/19 16:00 72 19 124/70 (88) 96 05/12/19 16:00 Room Air 05/12/19 16:00 74 05/12/19 15:00 71 19 106/52 (70) 95 Intake and Output 05/12/19 05/13/19 19:00 07:00 Intake Total 1448.8 ml 1176.75 ml Output Total 1000 ml 2000 ml Balance 448.8 ml -823.25 ml Intake Oral 480 ml 50 ml IV Total 968.8 ml 1126.75 ml Output Urine Total 1000 ml 2000 ml # Voids 2 Laboratory Tests 05/13/19 10:15: White Blood Count 6.2, Red Blood Count 4.08L, Hemoglobin 13.1L, Hematocrit 36.1L , Mean Corpuscular Volume 89, Mean Corpuscular Hemoglobin 32.2H, Mean Corpuscular Hemoglobin Concent 36.4H, Red Cell Distribution Width 12.5, Platelet Count 319, Mean Platelet Volume 5.1L, Neutrophils (%) (Auto) 60.8, Lymphocytes (%) (Auto) 26.0, Monocytes (%) (Auto) 9.9, Eosinophils (%) (Auto) 1.4, Basophils (%) (Auto) 1.9, Sodium Level 136, Potassium Level 4.2, Chloride Level 107, Carbon Dioxide Level 28, Anion Gap 2L, Blood Urea Nitrogen 12, Creatinine 0.9, Estimat Glomerular Filtration Rate > 60, Glucose Level 130H, Calcium Level 7.6L, Total Bilirubin 0.4, Aspartate Amino Transf (AST/SGOT) 19, Alanine Aminotransferase (ALT/SGPT) 40, Alkaline Phosphatase 82, Total Protein 6.3L, Albumin 2.6L, Globulin 3.7, Albumin/Globulin Ratio 0.7L Height (Feet): 6 Height (Inches): 0.00 Weight (Pounds): 185 General Appearance: no apparent distress Neck: normal alignment Respiratory/Chest: lungs clear Abdomen: normal bowel sounds Pelvis: normal external exam Edema: no edema noted Arm (L), no edema noted Arm (R), no edema noted Leg (L), no edema noted Leg (R), no edema noted Pedal (L), no edema noted Pedal (R), no edema noted Generalized Objective Current Medications Medications (Trade) Dose Ordered Sig/Ugo Route PRN Reason Start Time Stop Time Status Last Admin Dose Admin Dextrose (Dextrose 50%) 25 ml Q30M PRN IV HYPOGLYCEMIA 05/11/19 23:00 06/10/19 22:59 Dextrose (Dextrose 50%) 50 ml Q30M PRN IV HYPOGLYCEMIA 05/11/19 23:00 06/10/19 22:59 Gabapentin (Neurontin) 300 mg TWICE A DAY ORAL 05/12/19 09:00 06/11/19 08:59 05/13/19 08:47 Heparin Sodium (Porcine) (Heparin 5000 units/ml) 5,000 units EVERY 12 HOURS SUBQ 05/12/19 09:00 06/11/19 08:59 Insulin Aspart (NovoLOG) BEFORE MEALS AND HS SUBQ 05/12/19 11:30 06/11/19 11:29 05/13/19 06:16 Insulin Aspart (NovoLOG) 8 units NOVOTIAC SUBQ 05/12/19 11:50 06/11/19 11:49 05/13/19 12:45 Insulin Detemir (Levemir) 30 units DAILY SUBQ 05/12/19 12:00 06/11/19 11:59 05/13/19 08:49 [place] Carbonate ([place] Carbonate) 300 mg BID ORAL 05/13/19 09:00 06/12/19 08:59 05/13/19 08:47 Non-Formulary Medication (Non-Formulary Med) 1 ea DAILY ORAL 05/12/19 09:00 06/11/19 08:59 UNV Sodium Chloride 1,000 ml @ 100 mls/hr Q10H IV 05/11/19 22:45 06/10/19 22:44 05/13/19 04:44 Trazodone HCl (Desyrel) 300 mg BEDTIME ORAL 05/11/19 23:45 06/10/19 23:44 05/12/19 20:28 Vitamin D (Vitamin D) 2,000 intlu DAILY ORAL 05/12/19 09:00 06/11/19 08:59 05/13/19 08:46 Tj Abrams MD May 13, 2019 14:32
[2019-05-13] MEDS ORDERED: ALPRAZolam 0.5mg tab ORAL PRN (15:36)
--- NOTE | 2019-05-13 16:45 | Progress Note ---
DATE: 05/13/2019 SUBJECTIVE: The patient is still in ICU. The patient is still having depressed mood, anhedonia, worthlessness, and low energy. He is having suicidal ideation without plan or intention. The patient does not have any placement and is awaiting placement, now wants to go to a board and care that is in [facility]. MENTAL STATUS EXAMINATION: The patient is alert and oriented times to self, place, situation, and date. Cooperative, pleasant. Mood is less anxious. Affect is full range, congruent with mood. Thought process is linear and goal oriented. Thought content, positive for suicidal ideation without any plan or intention to hurt himself. No suicidal thoughts. No AVH. Cognition is intact. Insight and judgment is fair. ASSESSMENT: Bipolar disorder. PLAN: 1. Continue trazodone 300 mg at bedtime. 2. Continue the lithium 300 mg twice a day. 3. The patient is not an imminent danger to self or others. 4. Discontinue the Depakote. Beba Cantu M.D. DR: TOREY JOB#: [id number] CC:
[2019-05-13] MEDS: TraZODone 100mg tab ORAL SCH (20:33)
--- NOTE | 2019-05-13 23:02 | Progress Note ---
DATE: 05/13/2019 CARDIOLOGY PROGRESS NOTE SUBJECTIVE: The patient still feels depressed, but does not have any active plans to kill himself. He is concerned about being homeless. He is off insulin drip. OBJECTIVE: VITAL SIGNS: Stable. LUNGS: Clear. CARDIAC: Regular. ABDOMEN: Soft. EXTREMITIES: No edema. LABORATORY DATA: Chemistry panel, within normal limits. Albumin 2.6. White count 6.2, hemoglobin 13.1. IMPRESSION: 1. DKA, resolved. 2. Insulin-requiring diabetes mellitus. 3. Bipolar disorder. 4. HIV/AIDS. PLAN: 1. Psych therapy. 2. Titrate insulin. 3. Await therapy for HIV to become available and initiate such care. Abisai Khalil M.D. DR: JEISON JOB#: [id number] CC:
[2019-05-14] VITALS (8 sets, daily range): BP systolic 91–130; BP diastolic 53–74
[2019-05-14] MEDS ORDERED: ALPRAZolam 0.5mg tab ORAL PRN (05:00)
[2019-05-14] MEDS: NovoLOG Insulin Flexpen SUBQ SCH ×7 (06:30→20:36)
--- NOTE | 2019-05-14 07:07 | General Progress Note ---
Assessment/Plan Problem List: (1) Diabetes mellitus out of control ICD Codes: E11.65 - Type 2 diabetes mellitus with hyperglycemia SNOMED: 92880559, 102326949 (2) HIV disease ICD Codes: B20 - Human immunodeficiency virus [HIV] disease SNOMED: 68736197 (3) Hyperglycemia ICD Codes: R73.9 - Hyperglycemia, unspecified SNOMED: 32371477 (4) Hypertension ICD Codes: I10 - Essential (primary) hypertension SNOMED: 58332478 Assessment/Plan: continue Levemir 30 units qam continue Novolog 8 units ac tid + NISS ac / hs Subjective Allergies: Coded Allergies: MORPHINE (Unverified Allergy, Unknown, 05/02/19) PENICILLINS (Unverified Allergy, Unknown, 05/02/19) All Systems: reviewed and negative except above Subjective events noted transferred out of ICU glucose is labile Item Value Date Time Bedside Blood Glucose 281 mg/dl H 05/13/19 2100 Bedside Blood Glucose 181 mg/dl H 05/13/19 1657 Bedside Blood Glucose 96 mg/dl 05/13/19 1245 Bedside Blood Glucose 294 mg/dl H 05/13/19 0849 Bedside Blood Glucose 294 mg/dl H 05/13/19 0630 Objective Last 24 Hour Vital Signs Date Time Temp Pulse Resp B/P (MAP) Pulse Ox O2 Delivery O2 Flow Rate FiO2 05/14/19 04:00 Room Air 05/14/19 04:00 97.8 63 16 120/72 (88) 95 05/14/19 03:02 60 05/14/19 03:00 63 17 111/70 (84) 95 05/14/19 02:00 58 17 96/54 (68) 96 05/14/19 01:00 61 18 101/58 (72) 94 05/14/19 00:00 Room Air 05/14/19 00:00 98.0 61 16 91/53 (66) 95 05/13/19 23:00 63 17 105/60 (75) 95 05/13/19 22:57 60 05/13/19 22:00 69 16 110/66 (81) 97 05/13/19 21:00 72 20 110/62 (78) 96 05/13/19 20:00 97.9 79 20 119/68 (85) 96 05/13/19 20:00 Room Air 05/13/19 19:44 77 11/22/19 19:00 87 24 123/72 (89) 97 05/13/19 18:00 88 19 111/69 (83) 92 05/13/19 17:00 98.6 75 20 110/72 (85) 97 05/13/19 16:00 72 19 96/61 (73) 95 05/13/19 16:00 Room Air 05/13/19 16:00 71 05/13/19 15:00 73 18 110/66 (81) 95 05/13/19 14:00 74 22 98/64 (75) 95 05/13/19 13:00 73 20 110/66 (81) 92 05/13/19 12:00 88 05/13/19 12:00 97.7 96 17 104/67 (79) 95 05/13/19 12:00 Room Air 05/13/19 11:00 69 16 98/66 (77) 94 05/13/19 10:00 93 17 93/51 (65) 97 05/13/19 09:00 92 20 109/64 (79) 95 05/13/19 08:00 64 05/13/19 08:00 Room Air 05/13/19 08:00 98.7 75 22 118/53 (74) 95 Intake and Output 05/13/19 05/14/19 18:59 06:59 Intake Total 1660 ml 961.79 ml Output Total 3700 ml 2900 ml Balance -2040 ml -1938.21 ml Intake Oral 560 ml IV Total 1100 ml 961.79 ml Output Urine Total 3700 ml 2900 ml # Voids 2 3 Laboratory Tests 05/13/19 10:15: White Blood Count 6.2, Red Blood Count 4.08L, Hemoglobin 13.1L, Hematocrit 36.1L , Mean Corpuscular Volume 89, Mean Corpuscular Hemoglobin 32.2H, Mean Corpuscular Hemoglobin Concent 36.4H, Red Cell Distribution Width 12.5, Platelet Count 319, Mean Platelet Volume 5.1L, Neutrophils (%) (Auto) 60.8, Lymphocytes (%) (Auto) 26.0, Monocytes (%) (Auto) 9.9, Eosinophils (%) (Auto) 1.4, Basophils (%) (Auto) 1.9, Sodium Level 136, Potassium Level 4.2, Chloride Level 107, Carbon Dioxide Level 28, Anion Gap 2L, Blood Urea Nitrogen 12, Creatinine 0.9, Estimat Glomerular Filtration Rate > 60, Glucose Level 130H, Calcium Level 7.6L, Total Bilirubin 0.4, Aspartate Amino Transf (AST/SGOT) 19, Alanine Aminotransferase (ALT/SGPT) 40, Alkaline Phosphatase 82, Total Protein 6.3L, Albumin 2.6L, Globulin 3.7, Albumin/Globulin Ratio 0.7L Height (Feet): 6 Height (Inches): 0.00 Weight (Pounds): 190 General Appearance: no apparent distress Neck: normal alignment Cardiovascular: normal rate Respiratory/Chest: lungs clear Abdomen: normal bowel sounds Objective Current Medications Medications (Trade) Dose Ordered Sig/Ugo Route PRN Reason Start Time Stop Time Status Last Admin Dose Admin Alprazolam (Xanax) 0.5 mg BIDPRN PRN ORAL For Anxiety 05/14/19 05:00 05/20/19 04:59 Dextrose (Dextrose 50%) 25 ml Q30M PRN IV HYPOGLYCEMIA 05/14/19 05:00 06/10/19 22:59 Dextrose (Dextrose 50%) 50 ml Q30M PRN IV HYPOGLYCEMIA 05/14/19 05:00 06/10/19 22:59 Gabapentin (Neurontin) 300 mg TWICE A DAY ORAL 05/14/19 09:00 06/11/19 08:59 Heparin Sodium (Porcine) (Heparin 5000 units/ml) 5,000 units EVERY 12 HOURS SUBQ 05/14/19 09:00 06/11/19 08:59 Insulin Aspart (NovoLOG) BEFORE MEALS AND HS SUBQ 05/14/19 06:30 06/11/19 11:29 Insulin Aspart (NovoLOG) 8 units NOVOTIAC SUBQ 05/14/19 06:30 06/11/19 11:49 Insulin Detemir (Levemir) 30 units DAILY SUBQ 05/14/19 09:00 06/11/19 11:59 [place] Carbonate ([place] Carbonate) 300 mg BID ORAL 05/14/19 09:00 06/12/19 08:59 Non-Formulary Medication (Non-Formulary Med) 1 ea DAILY ORAL 05/14/19 09:00 06/11/19 08:59 UNV Sodium Chloride 1,000 ml @ 100 mls/hr Q10H IV 05/14/19 05:00 06/10/19 22:44 05/14/19 05:09 Trazodone HCl (Desyrel) 300 mg BEDTIME ORAL 05/14/19 21:00 06/10/19 23:44 Vitamin D (Vitamin D) 2,000 intlu DAILY ORAL 05/14/19 09:00 06/11/19 08:59 Tj Abrams MD May 14, 2019 07:07
[2019-05-14] MEDS: Heparin 5000 units/ml inj SUBQ SCH ×2 (09:00→20:39)
[2019-05-14] MEDS ORDERED: Vitamin D 1000 IU Tab ORAL SCH (09:00)
[2019-05-14] MEDS ORDERED: Levemir Flexpen SUBQ SCH (09:00)
[2019-05-14] MEDS ORDERED: D5NS 1000ml IV ONE (10:48)
[2019-05-14] MEDS ORDERED: NS 275ml ONE ×2 (10:48→16:04)
[2019-05-14] MEDS ORDERED: Tubing IV Secondary IV ONE (10:48)
[2019-05-14] MEDS ORDERED: TraZODone 100mg tab ORAL SCH (21:00)
--- NOTE | 2019-05-14 21:45 | Progress Note ---
DATE: 05/14/2019 SUBJECTIVE: The patient remains without new complaints. Glucose is still labile. Insulin titration is ongoing. OBJECTIVE: VITAL SIGNS: Blood pressure 120/72, pulse 63, and respiratory rate 16. LUNGS: Clear. CARDIAC: Regular. Normal S1 and S2. ABDOMEN: Soft. EXTREMITIES: No edema. PSYCHIATRIC: Mood is depressed. No active suicide plan. IMPRESSION: 1. Bipolar disorder. 2. Homelessness. 3. Diabetes mellitus, on insulin. 4. Status post DKA. PLAN: 1. Continue insulin titration. 2. Social service followup regarding discharge plan. 3. Titrate psych regimen. 4. Check lithium level. Abisai Khalil M.D. DR: KEILY JOB#: [id number] CC:
[2019-05-15 04:00] VITALS: BP 141/73
[2019-05-15] MEDS: NovoLOG Insulin Flexpen SUBQ SCH ×6 (05:56→20:55)
[2019-05-15] MEDS ORDERED: NovoLOG Insulin Flexpen SUBQ SCH (06:30)
[2019-05-15] MEDS ORDERED: Levemir Flexpen SUBQ SCH (09:00)
[2019-05-15] MEDS: Heparin 5000 units/ml inj SUBQ SCH ×2 (09:00→20:55)
[2019-05-15] MEDS: Vitamin D 1000 IU Tab ORAL SCH (10:35)
[2019-05-15 12:00] VITALS: BP 136/73
--- NOTE | 2019-05-15 15:31 | General Progress Note ---
Assessment/Plan Problem List: (1) Diabetes mellitus out of control ICD Codes: E11.65 - Type 2 diabetes mellitus with hyperglycemia SNOMED: 26710655, 123808640 (2) HIV disease ICD Codes: B20 - Human immunodeficiency virus [HIV] disease SNOMED: 35555411 (3) Hyperglycemia ICD Codes: R73.9 - Hyperglycemia, unspecified SNOMED: 23750612 (4) Hypertension ICD Codes: I10 - Essential (primary) hypertension SNOMED: 43485074 Assessment/Plan: increase Levemir to 40 units qam increase Novolog to 10 units ac tid continue NISS ac / hs Subjective Allergies: Coded Allergies: MORPHINE (Unverified Allergy, Unknown, 05/02/19) PENICILLINS (Unverified Allergy, Unknown, 05/02/19) All Systems: reviewed and negative except above Subjective events noted glucose values are elevated sleeping a lot Current Medications Medications (Trade) Dose Ordered Sig/Ugo Route PRN Reason Start Time Stop Time Status Last Admin Dose Admin Alprazolam (Xanax) 0.5 mg BIDPRN PRN ORAL For Anxiety 05/16/19 05:00 05/20/19 04:59 Dextrose (Dextrose 50%) 25 ml Q30M PRN IV HYPOGLYCEMIA 05/15/19 05:30 06/10/19 22:59 Dextrose (Dextrose 50%) 50 ml Q30M PRN IV HYPOGLYCEMIA 05/15/19 05:30 06/10/19 22:59 Gabapentin (Neurontin) 300 mg TWICE A DAY ORAL 05/15/19 09:00 06/11/19 08:59 05/15/19 10:35 Heparin Sodium (Porcine) (Heparin 5000 units/ml) 5,000 units EVERY 12 HOURS SUBQ 05/15/19 09:00 06/11/19 08:59 Insulin Aspart (NovoLOG) BEFORE MEALS AND HS SUBQ 05/15/19 06:30 06/11/19 11:29 05/15/19 12:08 Insulin Aspart (NovoLOG) 10 units NOVOTIAC SUBQ 05/15/19 11:50 06/11/19 11:49 05/15/19 12:06 Insulin Detemir (Levemir) 40 units DAILY SUBQ 05/16/19 09:00 06/11/19 11:59 [place] Carbonate ([place] Carbonate) 300 mg BID ORAL 05/15/19 09:00 06/12/19 08:59 05/15/19 10:36 Non-Formulary Medication (Non-Formulary Med) 1 ea DAILY ORAL 05/15/19 09:00 06/11/19 08:59 UNV Sodium Chloride 1,000 ml @ 50 mls/hr Q20H IV 05/15/19 05:30 06/13/19 21:14 05/15/19 14:45 Trazodone HCl (Desyrel) 300 mg BEDTIME ORAL 05/15/19 21:00 06/10/19 23:44 Vitamin D (Vitamin D) 2,000 intlu DAILY ORAL 05/15/19 09:00 06/11/19 08:59 05/15/19 10:35 Objective Last 24 Hour Vital Signs Date Time Temp Pulse Resp B/P (MAP) Pulse Ox O2 Delivery O2 Flow Rate FiO2 05/15/19 12:00 98.1 87 136/73 (94) 05/15/19 09:00 Room Air 05/15/19 04:00 98.1 81 20 141/73 (95) 97 05/15/19 04:00 Room Air 05/15/19 03:50 63 05/15/19 00:00 Room Air 05/14/19 23:42 71 05/14/19 20:06 81 05/14/19 20:00 Room Air 05/14/19 20:00 99.1 81 18 130/73 (92) 95 05/14/19 16:01 Room Air 05/14/19 16:00 98.4 79 20 109/71 (84) 95 05/14/19 16:00 78 Intake and Output 05/14/19 05/15/19 19:00 07:00 Intake Total 840 ml 800 ml Output Total 2700 ml 1900 ml Balance -1860 ml -1100 ml Intake Oral 840 ml 500 ml IV Total 300 ml Output Urine Total 2700 ml 1900 ml Height (Feet): 6 Height (Inches): 0.00 Weight (Pounds): 189 General Appearance: no apparent distress Neck: normal alignment Cardiovascular: normal rate Respiratory/Chest: decreased breath sounds Edema: no edema noted Arm (L), no edema noted Arm (R), no edema noted Leg (L), no edema noted Leg (R), no edema noted Pedal (L), no edema noted Pedal (R), no edema noted Generalized Objective Current Medications Medications (Trade) Dose Ordered Sig/Ugo Route PRN Reason Start Time Stop Time Status Last Admin Dose Admin Alprazolam (Xanax) 0.5 mg BIDPRN PRN ORAL For Anxiety 05/16/19 05:00 05/20/19 04:59 Dextrose (Dextrose 50%) 25 ml Q30M PRN IV HYPOGLYCEMIA 05/15/19 05:30 06/10/19 22:59 Dextrose (Dextrose 50%) 50 ml Q30M PRN IV HYPOGLYCEMIA 05/15/19 05:30 06/10/19 22:59 Gabapentin (Neurontin) 300 mg TWICE A DAY ORAL 05/15/19 09:00 06/11/19 08:59 05/15/19 10:35 Heparin Sodium (Porcine) (Heparin 5000 units/ml) 5,000 units EVERY 12 HOURS SUBQ 05/15/19 09:00 06/11/19 08:59 Insulin Aspart (NovoLOG) BEFORE MEALS AND HS SUBQ 05/15/19 06:30 06/11/19 11:29 05/15/19 12:08 Insulin Aspart (NovoLOG) 10 units NOVOTIAC SUBQ 05/15/19 11:50 06/11/19 11:49 05/15/19 12:06 Insulin Detemir (Levemir) 40 units DAILY SUBQ 05/16/19 09:00 06/11/19 11:59 [place] Carbonate ([place] Carbonate) 300 mg BID ORAL 05/15/19 09:00 06/12/19 08:59 05/15/19 10:36 Non-Formulary Medication (Non-Formulary Med) 1 ea DAILY ORAL 05/15/19 09:00 06/11/19 08:59 UNV Sodium Chloride 1,000 ml @ 50 mls/hr Q20H IV 05/15/19 05:30 06/13/19 21:14 05/15/19 14:45 Trazodone HCl (Desyrel) 300 mg BEDTIME ORAL 05/15/19 21:00 06/10/19 23:44 Vitamin D (Vitamin D) 2,000 intlu DAILY ORAL 05/15/19 09:00 06/11/19 08:59 05/15/19 10:35 Tj Abrams MD May 15, 2019 15:31
[2019-05-15 16:00] VITALS: BP 116/80
[2019-05-15 16:28] LABS: EOSINOPHILS % (AUTO) 0.8 % (0.0-3.0); HEMATOCRIT 39.4 % (42.0-52.0); HEMOGLOBIN 14.6 G/DL (14.2-18.0); LYMPHOCYTES % (AUTO) 18.7 % (20.0-45.0); MEAN CORPUSCULAR VOLUME 88 FL (80-99); MONOCYTES % (AUTO) 8.9 % (1.0-10.0); NEUTROPHILS % (AUTO) 70.6 % (45.0-75.0); PLATELET COUNT 312 K/UL (150-450); RED BLOOD COUNT 4.48 M/UL (4.70-6.10); WHITE BLOOD COUNT 7.5 K/UL (4.8-10.8)
[2019-05-15 17:03] LABS: ALANINE AMINOTRANSFERASE 36 U/L (12-78); ALBUMIN 3.1 G/DL (3.4-5.0); ALBUMIN/GLOBULIN RATIO 0.8 (1.0-2.7); ALKALINE PHOSPHATASE 93 U/L (46-116); ANION GAP 9 mmol/L (5-15); ASPARTATE AMINO TRANSFERASE 17 U/L (15-37); BILIRUBIN,TOTAL 0.5 MG/DL (0.2-1.0); BLOOD UREA NITROGEN 13 mg/dL (7-18); CALCIUM 8.7 MG/DL (8.5-10.1); CARBON DIOXIDE 25 MMOL/L (21-32); CHLORIDE 103 MMOL/L (98-107); POTASSIUM 4.6 MMOL/L (3.5-5.1); SODIUM 137 MMOL/L (136-145)
[2019-05-15 20:00] VITALS: BP 112/76
[2019-05-15] MEDS: TraZODone 100mg tab ORAL SCH (20:50)
--- NOTE | 2019-05-15 21:15 | Progress Note ---
DATE: 05/15/2019 INTERNAL MEDICINE PROGRESS NOTE SUBJECTIVE: The patient without complaints. Glucose control is improving. Appetite is good. Mood is still depressed. He has no active suicidal plan. He feels that he is unable to function independently. OBJECTIVE: Exam remains unchanged. LABORATORY DATA: Labs are noted. PLAN: We will be contacting psychiatric facilities for admission tomorrow. Abisai Khalil M.D. DR: Venessa JOB#: [id number] CC:
[2019-05-16] MEDS ORDERED: ALPRAZolam 0.5mg tab ORAL PRN (05:00)
[2019-05-16] MEDS: NovoLOG Insulin Flexpen SUBQ SCH ×7 (05:45→21:12)
--- NOTE | 2019-05-16 07:19 | General Progress Note ---
Assessment/Plan Problem List: (1) Diabetes mellitus out of control ICD Codes: E11.65 - Type 2 diabetes mellitus with hyperglycemia SNOMED: 52329401, 600949066 (2) HIV disease ICD Codes: B20 - Human immunodeficiency virus [HIV] disease SNOMED: 34719379 (3) Hyperglycemia ICD Codes: R73.9 - Hyperglycemia, unspecified SNOMED: 78784278 (4) Hypertension ICD Codes: I10 - Essential (primary) hypertension SNOMED: 02348019 Assessment/Plan: continue Levemir 40 units qam continue Novolog 10 units ac tid continue NISS ac / hs Subjective ROS Limited/Unobtainable: Yes Allergies: Coded Allergies: MORPHINE (Unverified Allergy, Unknown, 05/02/19) PENICILLINS (Unverified Allergy, Unknown, 05/02/19) Subjective events noted fasting glucose not done yet he is sleeping yesterday glucose values improved after insulin dosage increased Item Value Date Time Bedside Blood Glucose 175 mg/dl H 05/15/19 2100 Bedside Blood Glucose 194 mg/dl H 05/15/19 1714 Bedside Blood Glucose 196 mg/dl H 05/15/19 1208 Bedside Blood Glucose 278 mg/dl H 05/15/19 0557 Objective Last 24 Hour Vital Signs Date Time Temp Pulse Resp B/P (MAP) Pulse Ox O2 Delivery O2 Flow Rate FiO2 05/15/19 21:00 Room Air 05/15/19 20:00 98.0 83 18 112/76 (88) 96 05/15/19 16:00 98.1 78 16 116/80 (92) 97 05/15/19 12:00 98.1 87 136/73 (94) 05/15/19 09:00 Room Air Intake and Output 05/15/19 05/16/19 18:59 06:59 Intake Total 2000 ml 1400 ml Output Total 1250 ml Balance 2000 ml 150 ml Intake Oral 900 ml IV Total 200 ml 500 ml Other 1800 ml Other 1250 ml Laboratory Tests 05/15/19 16:15: White Blood Count 7.5, Red Blood Count 4.48L, Hemoglobin 14.6, Hematocrit 39.4L , Mean Corpuscular Volume 88, Mean Corpuscular Hemoglobin 32.7H, Mean Corpuscular Hemoglobin Concent 37.1H, Red Cell Distribution Width 12.0, Platelet Count 312, Mean Platelet Volume 5.4L, Neutrophils (%) (Auto) 70.6, Lymphocytes (%) (Auto) 18.7L, Monocytes (%) (Auto) 8.9, Eosinophils (%) (Auto) 0.8, Basophils (%) (Auto) 1.0, Sodium Level 137, Potassium Level 4.6, Chloride Level 103, Carbon Dioxide Level 25, Anion Gap 9, Blood Urea Nitrogen 13, Creatinine 1.0, Estimat Glomerular Filtration Rate > 60, Glucose Level 233H, Calcium Level 8.7, Magnesium Level 1.9, Total Bilirubin 0.5, Aspartate Amino Transf (AST/SGOT) 17, Alanine Aminotransferase (ALT/SGPT) 36, Alkaline Phosphatase 93, Total Protein 7.2, Albumin 3.1L, Globulin 4.1, Albumin/Globulin Ratio 0.8L, [place] Level 0.29 Height (Feet): 6 Height (Inches): 0.00 Weight (Pounds): 187 General Appearance: no apparent distress Neck: normal alignment Cardiovascular: normal peripheral pulses Respiratory/Chest: lungs clear Abdomen: normal bowel sounds Objective Current Medications Medications (Trade) Dose Ordered Sig/Ugo Route PRN Reason Start Time Stop Time Status Last Admin Dose Admin Alprazolam (Xanax) 0.5 mg BIDPRN PRN ORAL For Anxiety 05/16/19 05:00 05/20/19 04:59 Dextrose (Dextrose 50%) 25 ml Q30M PRN IV HYPOGLYCEMIA 05/15/19 05:30 06/10/19 22:59 Dextrose (Dextrose 50%) 50 ml Q30M PRN IV HYPOGLYCEMIA 05/15/19 05:30 06/10/19 22:59 Gabapentin (Neurontin) 300 mg TWICE A DAY ORAL 05/15/19 09:00 06/11/19 08:59 05/15/19 18:22 Heparin Sodium (Porcine) (Heparin 5000 units/ml) 5,000 units EVERY 12 HOURS SUBQ 05/15/19 09:00 06/11/19 08:59 Insulin Aspart (NovoLOG) BEFORE MEALS AND HS SUBQ 05/15/19 06:30 06/11/19 11:29 05/16/19 05:45 Insulin Aspart (NovoLOG) 10 units NOVOTIAC SUBQ 05/15/19 11:50 06/11/19 11:49 05/16/19 05:46 Insulin Detemir (Levemir) 40 units DAILY SUBQ 05/16/19 09:00 06/11/19 11:59 [place] Carbonate ([place] Carbonate) 300 mg BID ORAL 05/15/19 09:00 06/12/19 08:59 05/15/19 18:22 Non-Formulary Medication (Non-Formulary Med) 1 ea DAILY ORAL 05/15/19 09:00 06/11/19 08:59 UNV Sodium Chloride 1,000 ml @ 50 mls/hr Q20H IV 05/15/19 05:30 06/13/19 21:14 05/15/19 14:45 Trazodone HCl (Desyrel) 300 mg BEDTIME ORAL 05/15/19 21:00 06/10/19 23:44 05/15/19 20:50 Vitamin D (Vitamin D) 2,000 intlu DAILY ORAL 05/15/19 09:00 06/11/19 08:59 05/15/19 10:35 Tj Abrams MD May 16, 2019 07:19
[2019-05-16 08:00] VITALS: BP 126/73
[2019-05-16] MEDS: Levemir Flexpen SUBQ SCH (08:22)
[2019-05-16] MEDS: Heparin 5000 units/ml inj SUBQ SCH ×2 (08:22→21:00)
[2019-05-16] MEDS: Vitamin D 1000 IU Tab ORAL SCH (08:23)
[2019-05-16 12:00] VITALS: BP 125/61
[2019-05-16] MEDS: Lisinopril 10mg tab ORAL SCH (12:32)
[2019-05-16 16:00] VITALS: BP 113/75
--- NOTE | 2019-05-16 17:00 | Progress Note ---
DATE: 05/16/2019 INTERNAL MEDICINE PROGRESS NOTE SUBJECTIVE: No new complaints. Awaiting disposition. Glucose control improved. OBJECTIVE: Vitals are stable. Exam is unchanged. PLAN: 1. Continue current insulin dosing. 2. Psych follow-up and therapy without change. 3. Discontinue IV fluids. 4. Await lithium level. 5. Add [place] inhibitor. Abisai Khalil M.D. DR: ANNELISE JOB#: [id number] CC:
[2019-05-16 20:00] VITALS: BP 113/75
[2019-05-16] MEDS: TraZODone 100mg tab ORAL SCH (21:11)
[2019-05-17 04:00] VITALS: BP 134/82
--- NOTE | 2019-05-17 06:19 | General Progress Note ---
Assessment/Plan Problem List: (1) Diabetes mellitus out of control ICD Codes: E11.65 - Type 2 diabetes mellitus with hyperglycemia SNOMED: 38631643, 813903250 (2) HIV disease ICD Codes: B20 - Human immunodeficiency virus [HIV] disease SNOMED: 72111875 (3) Hyperglycemia ICD Codes: R73.9 - Hyperglycemia, unspecified SNOMED: 48827417 (4) Hypertension ICD Codes: I10 - Essential (primary) hypertension SNOMED: 26246605 Assessment/Plan: continue Levemir 40 units qam continue Novolog 10 units ac tid continue NISS ac / hs Subjective ROS Limited/Unobtainable: Yes Allergies: Coded Allergies: MORPHINE (Unverified Allergy, Unknown, 05/02/19) PENICILLINS (Unverified Allergy, Unknown, 05/02/19) Subjective events noted glucose values improved Item Value Date Time Bedside Blood Glucose 181 mg/dl H 05/16/19 2112 Bedside Blood Glucose 225 mg/dl H 05/16/19 1658 Bedside Blood Glucose 233 mg/dl H 05/16/19 1158 Bedside Blood Glucose 246 mg/dl H 05/16/19 0822 Objective Last 24 Hour Vital Signs Date Time Temp Pulse Resp B/P (MAP) Pulse Ox O2 Delivery O2 Flow Rate FiO2 05/17/19 04:00 97.3 75 19 134/82 (99) 98 05/16/19 21:00 Room Air 05/16/19 20:00 96.6 80 19 113/75 (88) 96 05/16/19 16:00 97.4 86 19 113/75 (88) 98 05/16/19 12:32 125/61 05/16/19 12:00 97.6 87 18 125/61 (82) 97 05/16/19 09:00 Room Air 05/16/19 08:00 98.2 90 18 126/73 (90) 96 Intake and Output 05/16/19 05/17/19 19:00 07:00 Intake Total 2350 ml Balance 2350 ml Intake Oral 350 ml IV Total 200 ml Other 1800 ml # Voids 2 Height (Feet): 6 Height (Inches): 0.00 Weight (Pounds): 84 General Appearance: no apparent distress Neck: normal alignment Cardiovascular: normal rate Respiratory/Chest: lungs clear Abdomen: normal bowel sounds Objective Current Medications Medications (Trade) Dose Ordered Sig/Ugo Route PRN Reason Start Time Stop Time Status Last Admin Dose Admin Alprazolam (Xanax) 0.5 mg BIDPRN PRN ORAL For Anxiety 05/16/19 05:00 05/20/19 04:59 Dextrose (Dextrose 50%) 25 ml Q30M PRN IV HYPOGLYCEMIA 05/15/19 05:30 06/10/19 22:59 Dextrose (Dextrose 50%) 50 ml Q30M PRN IV HYPOGLYCEMIA 05/15/19 05:30 06/10/19 22:59 Gabapentin (Neurontin) 300 mg TWICE A DAY ORAL 05/15/19 09:00 06/11/19 08:59 05/16/19 17:16 Heparin Sodium (Porcine) (Heparin 5000 units/ml) 5,000 units EVERY 12 HOURS SUBQ 05/15/19 09:00 06/11/19 08:59 Insulin Aspart (NovoLOG) BEFORE MEALS AND HS SUBQ 05/15/19 06:30 06/11/19 11:29 05/16/19 21:12 Insulin Aspart (NovoLOG) 10 units NOVOTIAC SUBQ 05/15/19 11:50 06/11/19 11:49 05/16/19 16:58 Insulin Detemir (Levemir) 40 units DAILY SUBQ 05/16/19 09:00 06/11/19 11:59 05/16/19 08:22 Lisinopril (ZestriL) 10 mg DAILY ORAL 05/16/19 13:00 06/15/19 12:59 05/16/19 12:32 Washta Carbonate (Washta Carbonate) 300 mg BID ORAL 05/15/19 09:00 06/12/19 08:59 05/16/19 17:16 Non-Formulary Medication (Non-Formulary Med) 1 ea DAILY ORAL 05/15/19 09:00 06/11/19 08:59 UNV Trazodone HCl (Desyrel) 300 mg BEDTIME ORAL 05/15/19 21:00 06/10/19 23:44 05/16/19 21:11 Vitamin D (Vitamin D) 2,000 intlu DAILY ORAL 05/15/19 09:00 06/11/19 08:59 05/16/19 08:23 Tj Abrams MD May 17, 2019 06:19
[2019-05-17] MEDS: NovoLOG Insulin Flexpen SUBQ SCH ×7 (06:26→21:00)
[2019-05-17 08:00] VITALS: BP 126/87
[2019-05-17] MEDS: Vitamin D 1000 IU Tab ORAL SCH (08:37)
[2019-05-17] MEDS: Lisinopril 10mg tab ORAL SCH (08:38)
[2019-05-17] MEDS: Levemir Flexpen SUBQ SCH (08:40)
[2019-05-17] MEDS: Heparin 5000 units/ml inj SUBQ SCH ×2 (08:45→21:00)
[2019-05-17 12:00] VITALS: BP 111/73
[2019-05-17 16:00] VITALS: BP 113/69
[2019-05-17 20:00] VITALS: BP 107/69
[2019-05-17] MEDS: TraZODone 100mg tab ORAL SCH (21:04)
--- NOTE | 2019-05-18 | Progress Note ---
DATE: 05/17/2019 SUBJECTIVE: The patient is calm and cooperative. No behavior issues noted. Compliant with medication. The patient is awaiting placement. The patient is not endorsing any psychotic or manic symptoms. MENTAL STATUS EXAMINATION: The patient is alert and oriented times to self, place, and situation. Mood is less depressed. Affect is constricted. Thought process, linear and goal oriented. Thought content, no suicidal or homicidal ideations. ASSESSMENT: Bipolar disorder. PLAN: 1. We will continue the lithium. 2. Continue trazodone. 3. The patient is not an imminent danger to self or others, as he is not suicidal any longer. 4. Provide the patient with reality orientation and supportive therapy. Beba Cantu M.D. DR: TOREY JOB#: [id number] CC:
--- NOTE | 2019-05-18 05:30 | Progress Note ---
DATE: 05/17/2019 INTERNAL MEDICINE PROGRESS NOTE No new complaints. Calm and cooperative with no suicidal or homicidal ideation. [place] level is subtherapeutic; however, clinical condition has improved and it is stable at current dose. Insulin dosing was adjusted and glucose levels have improved. The patient is medically stable for a psych facility where he can continue rehabilitation and obtain capacity for independent living again. Abisai Khalil M.D. DR: KEILY JOB#: [id number] CC:
[2019-05-18] MEDS: NovoLOG Insulin Flexpen SUBQ SCH ×4 (06:18→14:25)
[2019-05-18 08:00] VITALS: BP 102/63
[2019-05-18] MEDS: Heparin 5000 units/ml inj SUBQ SCH (08:41)
[2019-05-18] MEDS: Vitamin D 1000 IU Tab ORAL SCH (08:41)
[2019-05-18] MEDS: Lisinopril 10mg tab ORAL SCH (08:42)
[2019-05-18] MEDS: Levemir Flexpen SUBQ SCH (08:43)
[2019-05-18 12:00] VITALS: BP 96/61
[2019-05-18 16:00] VITALS: BP 112/72
[2019-05-18] MEDS ORDERED: VITAMIN D32000 UNI3 PO (16:50)
[2019-05-18] MEDS ORDERED: GABAPENTIN300 MG ORAL (16:52)
[2019-05-18] MEDS ORDERED: LISINOPRIL10 MG ORAL (16:52)
[2019-05-18] MEDS ORDERED: LITHIUM CARBON300 MG ORAL (16:53)
[2019-05-19] MEDS ORDERED: ACCU-CHEK COMB1 EACH MC (17:13)
--- NOTE | 2019-05-21 11:49 | Discharge Summary ---
Discharge Summary Discharge Summary _ DATE OF ADMISSION: 05/11/2019 DATE OF DISCHARGE: 05/18/2019 Patient left AGAINST MEDICAL ADVICE REASON FOR ADMISSION: 58 years old male with past medical history of diabetes mellitus type I, HIV, presented with fatigue and elevated blood sugar. He denied chest pain, but reported some shortness of breath. He reported generalized fatigue. Patient apparently was not taking insulin at home. He denied fever and chills Upon evaluation patient was afebrile, pulse oximetry was stable on room air, blood pressure was elevated 178/79 . Patient was tachycardic with heart rate 113 and tachypneic with respiratory rate of 24. Laboratory work-up revealed no leukocytosis ,stable hemoglobin and hematocrit. Stable platelet count. Urinalysis revealed +2 protein , +4 glucose, no evidence of UTI. Sodium 129, potassium 5.1. BUN 16, creatinine 1.1. Glucose 492. Lactic acid 1.7. Albumin 3.5. Urine toxicology screen was negative. EKG revealed sinus tachycardia, no acute ischemic changes. CXR revealed no acute cardiopulmonary pathology. In emergency department patient started on insulin drip and admitted to ICU for further management. CONSULTANTS: veterans' coordinator Dr. Abrams psychiatrist [facility] COURSE: Patient admitted to ICU on insulin drip. Patient started on the IV fluids with close monitoring of electrolytes and replacing as needed. [employer] Machine Tender consulted. Insulin drip was later discontinued, since anion gap was within normal range. Patient started on long-acting Levemir and short acting pre-meal NovoLog. Sliding scale of NovoLog also implemented as needed. Vitamin D was continued. Further adjustments were made based on the blood glucose values. Patient was provided with diabetic diet . Patient was counseled on the compliance with diabetic diet and insulin. Blood sugar stabilized. Renal parameters and electrolytes were closely monitored. Electrolytes corrected as needed. Upon leaving AMA hyponatremia resolved. Blood pressure was managed with AZ inhibitor . DVT prophylaxis provided. Antiretroviral therapy was continued. Patient initially complained of suicidal ideation without any active plan. Per psychiatrist, patient had bipolar disorder and anxiety disorder. Psychiatric medication regimen was optimized. Sitter was discontinued per psychiatrist, since patient deemed not to be at imminent danger to self or other. On 05/18 patient decided to leave AGAINST MEDICAL ADVICE. The risks and consequences of signing AGAINST MEDICAL ADVICE were discussed with patient in detail. Patient verbalized understanding, nevertheless signed AMA form and left. FINAL DIAGNOSES: DKA Diabetes mellitus type 1 out of control with hyperglycemia Noncompliance HIV Hypertension Suicidal ideation , with no active plan Bipolar disorder Patient started on a V/Q the level was subtherapeutic I have been assigned to dictate discharge summary for this account. I was not involved in the patient's management. Jennifer Henderson NP May 21, 2019 11:49
== END 2019-05-18 18:16 | disposition left against medical advice (07) | DRG 420 ==
LOC: EMR 20:07 → ICU 21:27 → EDBEDREQ 21:49 → 2W 05-14 04:45 → 4E 05-15 05:25
DX: E10.10 Type 1 diabetes mellitus with ketoacidosis without coma (principal); B20 Human immunodeficiency virus [HIV] disease; R45.851 Suicidal ideations; F31.9 Bipolar disorder, unspecified; Z88.6 Allergy status to analgesic agent; Z88.0 Allergy status to penicillin; I25.10 Atherosclerotic heart disease of native coronary artery without angina pectoris; E78.5 Hyperlipidemia, unspecified; Z79.4 Long term (current) use of insulin; Z91.14 Patient's other noncompliance with medication regimen
CPT/HCPCS: 36415; 71045; 80053; 80178; 80307; 81003; 82009; 82962; 83605; 83690; 83735; 84443; 85025; 85610; 85730; 87040; 87081; 93005; 96361; 96365; 96368; 99291; G0480; J1815; J7030; J8499; S5561

== ENCOUNTER 2019-05-19 13:58 | Emergency (ER) | payer OTHER ==
[~2019-05-19] VITALS: Ht 182.9 cm; Wt 81.6 kg
[~2019-05-19 13:58] MED LIST changes: +GABAPENTIN300 MG ORAL; +LISINOPRIL10 MG ORAL; +LITHIUM CARBON300 MG ORAL; +VITAMIN D32000 UNI3 PO
--- NOTE | 2019-05-19 14:03 | Emergency Room Report ---
History of Present Illness General Chief Complaint: Alcohol Intoxication Source: Patient, EMS Present Illness HPI Disclaimer: Please note that this report is being documented using [employer] technology. This can lead to erroneous entry secondary to incorrect interpretation by the dictating instrument. HPI: 58-year-old male with history of HIV, insulin-dependent diabetes with history of noncompliance presents for evaluation of altered mental status. According to EMS he sat down in a restaurant and then refused to answer questions or interact with patients. He had no complaints on his right over but was refusing to speak with medical personnel. Had stable vital signs en route. The patient was discharged from this facility yesterday after a stay for diabetic ketoacidosis. EMS reports smelling alcohol on him. Patient is not cooperative with interview. Does not provide any meaningful history. He has no complaints though and states he has no pain. He does not know what medications he supposed to take. PMH: HIV, bipolar disorder, insulin-dependent diabetes PSH: Reviewed Allergies: Penicillin and morphine listed in medical chart Social Hx: Patient refuses to answer, history of alcohol abuse in medical record Allergies: Coded Allergies: MORPHINE (Unverified Allergy, Unknown, 05/02/19) PENICILLINS (Unverified Allergy, Unknown, 05/02/19) Nursing Documentation-PMH Hx Cardiac Problems: Yes - HIV positive Hx Hypertension: Yes Hx Asthma: No Hx COPD: No Hx Diabetes: Yes Hx Cancer: No Hx Gastrointestinal Problems: Yes - DIARRHEA, NAUSEA Hx Dialysis: No Hx Neurological Problems: No Hx Cerebrovascular Accident: No Hx Seizures: No Review of Systems All Other Systems: negative except mentioned in HPI Physical Exam Vital Signs Date Time Temp Pulse Resp B/P (MAP) Pulse Ox O2 Delivery O2 Flow Rate FiO2 05/19/19 13:54 98.4 110 20 132/79 (96) 98 Room Air General: Awake and alert, no acute distress HEENT: NC/AT. EOMI. dry mucous membranes Cardiovascular: Tachycardic. S1 and S2 normal. No murmur appreciated Resp: Mild tachypnea. Normal work of breathing. No cough, wheezing or crackles appreciated Abdomen: Abdomen is soft, nondistended. Nontender Skin: Intact. No abrasions, laceration or rash over the exposed skin MSK: Normal tone and bulk. Moving all extremities. No obvious deformity. Neuro: Awake and alert. Mentating appropriately. Medical Decision Making Diagnostic Impression: Primary Impression: Hyperglycemia Additional Impression: Noncompliance with medication regimen ER Course 58-year-old male presents by EMS for evaluation of possible altered mental status or intoxication. The patient is awake, alert but refusing to answer questions. He does state that he has no complaints. He does not provide any other history. Poor historian or simply refusing to cooperate. Does not seem to know very much about his medical conditions. Given his recent admission for DKA will obtain labs including ketones as well as an EKG. He does not appear to be in any distress. Further work-up dependent on results. Laboratory Tests Test 05/19/19 14:10 05/19/19 16:00 White Blood Count 7.3 K/UL (4.8-10.8) Red Blood Count 4.86 M/UL (4.70-6.10) Hemoglobin 15.8 G/DL (14.2-18.0) Hematocrit 45.0 % (42.0-52.0) Mean Corpuscular Volume 93 FL (80-99) Mean Corpuscular Hemoglobin 32.5 PG (27.0-31.0) H Mean Corpuscular Hemoglobin Concent 35.1 G/DL (32.0-36.0) Red Cell Distribution Width 12.7 % (11.6-14.8) Platelet Count 339 K/UL (150-450) Mean Platelet Volume 5.4 FL (6.5-10.1) L Neutrophils (%) (Auto) 66.8 % (45.0-75.0) Lymphocytes (%) (Auto) 25.4 % (20.0-45.0) Monocytes (%) (Auto) 6.8 % (1.0-10.0) Eosinophils (%) (Auto) 0.1 % (0.0-3.0) Basophils (%) (Auto) 0.9 % (0.0-2.0) Sodium Level 136 MMOL/L (136-145) 140 MMOL/L (136-145) Potassium Level 5.5 MMOL/L (3.5-5.1) H 4.9 MMOL/L (3.5-5.1) Chloride Level 101 MMOL/L (98-107) 106 MMOL/L (98-107) Carbon Dioxide Level 19 MMOL/L (21-32) L 20 MMOL/L (21-32) L Anion Gap 16 mmol/L (5-15) H 14 mmol/L (5-15) Blood Urea Nitrogen 16 mg/dL (7-18) 14 mg/dL (7-18) Creatinine 1.1 MG/DL (0.55-1.30) 1.0 MG/DL (0.55-1.30) Estimate Glomerular Filtration Rate > 60 mL/min (>60) > 60 mL/min (>60) Glucose Level 432 MG/DL (74-106) H 307 MG/DL (74-106) #H Calcium Level 8.8 MG/DL (8.5-10.1) 8.2 MG/DL (8.5-10.1) L Acetone Level Negative (NEGATIVE) EKG Diagnostic Results EKG Time: 14:22 Rate: normal Rhythm: NSR ST Segments: no acute changes Other Impression Sinus rhythm, left axis deviation, normal intervals, no ST segment changes. Normal T wave morphology. Rhythm Strip Diag. Results Rhythm Strip Time: 14:22 EP Interpretation: yes Rate: 90s Rhythm: NSR, no PVC's, no ectopy Reevaluation Time: 17:17 Last Vital Signs Date Time Temp Pulse Resp B/P (MAP) Pulse Ox O2 Delivery O2 Flow Rate FiO2 05/19/19 13:54 98.4 110 20 132/79 (96) 98 Room Air Reevaluation Impression Patient was found to be hypoglycemic and slightly hyperkalemic. He was treated with Kayexalate and IV insulin and IV fluids. Repeat BMP is within normal limits. Acetone was negative and there is no evidence of DKA. No gap. I offer the patient medical admission but again declined. He did leave AMA from the hospital yesterday without his medications. I also offered to arrange placement in a psychiatric facility voluntarily but again he declined. He is alert and oriented. States he will stay with his friend ramin. Does not want to stay in the hospital or be transferred to a psych facility and wants to leave the emergency department. I will order him his insulin pen to be given to him prior to discharge. I wrote him a prescription for a new glucometer as he does not know where he left his old one. Explained the dangers of leaving however the patient states he would like to follow-up with his social worker health services tomorrow to arrange outpatient treatment. Believe he is competent to make his own medical decisions. He will be discharged after receiving his medications. 1737: Patient left the emergency department prior to receiving his medications. Stated he had insulin at home. Walked out with a steady gait. Disposition: HOME, SELF-CARE Condition: Stable Scripts Insulin Pump/Infus. Set/Meter (ACCU-CHEK COMBO SYSTEM) 1 Each Kit EACH , #1 Prov: Bhavin Jacob MD 05/19/19 Bhavin Jacob MD May 19, 2019 14:03
--- NOTE | 2019-05-19 14:07 | NUR ---
ED Nurse Note: Patient was BIB by MICHAEL from a restaurant. Per [facility], patient would not communicate. Placed patient in hospital bed and gown; patient is awake, verbally responsive, able to follow simple commands. Placed on clinical therapist, shows normal sinus rhythm. Patient on room air, saturating 100%, no acute distress noted at this time. Safety precautions in place, bed locked and in lowest position and side rails up x2. ERMD at bedside.
--- NOTE | 2019-05-19 14:10 | NUR ---
ED Nurse Note: IV access established, blood collected and sent to lab.
[2019-05-19 14:12] VITALS: BP 160/101
[2019-05-19 14:23] LABS: BASOPHILS % (AUTO) 0.9 % (0.0-2.0); EOSINOPHILS % (AUTO) 0.1 % (0.0-3.0); HEMOGLOBIN 15.8 G/DL (14.2-18.0); LYMPHOCYTES % (AUTO) 25.4 % (20.0-45.0); MEAN CORPUSCULAR VOLUME 93 FL (80-99); MONOCYTES % (AUTO) 6.8 % (1.0-10.0); NEUTROPHILS % (AUTO) 66.8 % (45.0-75.0); PLATELET COUNT 339 K/UL (150-450); RED BLOOD COUNT 4.86 M/UL (4.70-6.10); RED CELL DISTRIBUTION WIDTH 12.7 % (11.6-14.8); WHITE BLOOD COUNT 7.3 K/UL (4.8-10.8)
[2019-05-19 14:32] LABS: ANION GAP 16 mmol/L (5-15); BLOOD UREA NITROGEN 16 mg/dL (7-18); CALCIUM 8.8 MG/DL (8.5-10.1); CARBON DIOXIDE 19 MMOL/L (21-32); CHLORIDE 101 MMOL/L (98-107); CREATININE 1.1 MG/DL (0.55-1.30); POTASSIUM 5.5 MMOL/L (3.5-5.1); SODIUM 136 MMOL/L (136-145)
[2019-05-19] MEDS ORDERED: Insulin Human Regular 100units/ml 3ml IV ONE (14:45)
[2019-05-19] MEDS ORDERED: Sodium Polystyrene Sulfonate 15gm Powder ORAL ONE (14:45)
[2019-05-19 15:01] VITALS: BP 115/75
--- NOTE | 2019-05-19 16:00 | NUR ---
ED Nurse Note: Blood collected for repeat BMP, sent to lab.
[2019-05-19 16:37] LABS: ANION GAP 14 mmol/L (5-15); BLOOD UREA NITROGEN 14 mg/dL (7-18); CALCIUM 8.2 MG/DL (8.5-10.1); CARBON DIOXIDE 20 MMOL/L (21-32); CHLORIDE 106 MMOL/L (98-107); POTASSIUM 4.9 MMOL/L (3.5-5.1); SODIUM 140 MMOL/L (136-145)
[2019-05-19] MEDS ORDERED: ACCU-CHEK COMB1 EACH MC (17:13)
[2019-05-19] MEDS ORDERED: Levemir Flexpen SUBQ SCH (17:30)
[2019-05-19] MEDS ORDERED: Insulin Human Regular 100units/ml 3ml SUBQ ONE (17:30)
--- NOTE | 2019-05-19 17:38 | NUR ---
ER DISCHARGE NOTE: Pt is aox4, on room air, with stable vital signs. Pt refused to wait for Insulin pen from pharmacy with discharge instructions. Charge nurse and ERMD aware. pt id band and iv site removed without complications. Pt is able to ambulate with steady gait. Pt took all belongings.
[2019-05-19 17:44] VITALS: BP 122/71
== END 2019-05-19 17:38 | disposition home or self-care (01) ==
LOC: EDBD 13:58 → EMR 14:17
DX: E11.65 Type 2 diabetes mellitus with hyperglycemia (principal); Z91.14 Patient's other noncompliance with medication regimen; I10 Essential (primary) hypertension; B20 Human immunodeficiency virus [HIV] disease; F31.9 Bipolar disorder, unspecified; Z88.0 Allergy status to penicillin; Z88.5 Allergy status to narcotic agent; Z79.4 Long term (current) use of insulin
CPT/HCPCS: 36415; 80048; 82009; 85025; 93005; 96361; 96374; J1815; Z7502; 99284; S5561